=== PATIENT | female | born 1970 | race Caucasian/White ===

== ENCOUNTER 2020-08-10 15:44 | Outpatient (REF) | payer BC, SELFPAY ==
--- NOTE | ~2020-08-10 | US_ITS ---
Bilateral diagnostic breast ultrasound exams are included in a single combined report along with the diagnostic bilateral mammography under accession # [id number]
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
--- NOTE | ~2020-08-10 | US_ITS ---
Bilateral diagnostic breast ultrasound exams are included in a single combined report along with the diagnostic bilateral mammography under accession # [id number]
== END 2020-08-10 15:45 | disposition home or self-care (01) ==
LOC: HO.MAMMO 15:44
PROVIDERS: PCP Internal Medicine; Visit Provider Internal Medicine
DX: N64.4 Mastodynia (principal); N60.01 Solitary cyst of right breast
CPT/HCPCS: 76642; 77062; 77066

== ENCOUNTER 2021-02-11 12:42 | Outpatient (REF) | payer BC, SELFPAY ==
--- NOTE | ~2021-02-11 | MM_ITS ---
EXAMINATION: MM DIAGNOSTIC DIGITAL BREAST TOMOSYNTHESIS, RIGHT CLINICAL INFORMATION: Probable benign parenchymal asymmetry with central fatty tissue composition 1:30 o'clock right breast. The lifetime risk of breast cancer based on the Tyrer-Cuzick Model is 16%. COMPARISON: Mammography: 08/10/2020, 08/05/2019, 12/14/2017; targeted right breast ultrasound 08/10/2020 TECHNIQUE: Digital breast tomosynthesis is performed in both the craniocaudal and mediolateral oblique views along with computer-aided detection (CAD). Synthesized 2D images are generated from the tomosynthesis. Additional right CC view is provided. FINDINGS: There are scattered areas of fibroglandular density (ACR BI-RADS breast composition Category b). Parenchymal pattern is similar to prior exams. The parenchymal asymmetry with central fatty attenuation mid medial right breast on CC view is similar in size and contour to the prior studies. There is no developing density or architectural abnormality. Finding will be reassessed again at time of annual bilateral exam, due in 6 months. Results are provided to the patient at time of visit by the technologist. MM/MM tomosynthesis diagnostic RT IMPRESSION: Benign-appearing parenchymal asymmetry with central fatty attenuation mid medial right breast stable. ASSESSMENT: BI-RADS 3: Probably Benign RECOMMENDATION: Diagnostic mammography at time of annual bilateral exam, due in 6 months. This patient's information was entered into a reminder system with a target due date for their next mammogram.
== END 2021-02-11 12:43 | disposition home or self-care (01) ==
LOC: HO.MAMMO 12:42
PROVIDERS: Visit Provider Internal Medicine
DX: R92.2 Inconclusive mammogram (principal)
CPT/HCPCS: 77061; 77065

== ENCOUNTER 2021-08-20 13:25 | Outpatient (REF) | payer BC, SELFPAY ==
--- NOTE | ~2021-08-20 | MM_ITS ---
EXAMINATION: MM DIAGNOSTIC DIGITAL BREAST TOMOSYNTHESIS, BILATERAL CLINICAL INFORMATION: Due for yearly. Also follow-up probable benign parenchymal asymmetry central 1:30 o'clock right breast. The lifetime risk of breast cancer based on the Tyrer-Cuzick Model is 11%. COMPARISON: Mammography: 02/11/2021, 08/10/2020 (BI-RADS 3), 08/05/2019, 12/14/2017; bilateral breast ultrasound 08/10/2020 TECHNIQUE: Digital breast tomosynthesis is performed in both the craniocaudal and mediolateral oblique views along with computer-aided detection (CAD). Synthesized 2D images are generated from the tomosynthesis. FINDINGS: There are scattered areas of fibroglandular density (ACR BI-RADS breast composition Category b). Parenchymal pattern is similar to prior studies. There is no interval mass or architectural abnormality. No developing density. Finding for follow-up is stable and in retrospect unchanged since 2018. Findings will be reassessed again at next bilateral annual mammography to conclude long-term surveillance. Neither breast shows abnormal calcifications. The axilla and skin contours are unremarkable. Results are provided to the patient at time of visit by the technologist. MM/MM tomosynthesis diagnostic BI IMPRESSION: No significant changes from prior studies. Benign-appearing fibroglandular asymmetry on right stable. No developing density. ASSESSMENT: BI-RADS 3: Probably Benign RECOMMENDATION: Diagnostic mammography at time of next annual exam, due in 12 months. This patient's information was entered into a reminder system with a target due date for their next mammogram.
== END 2021-08-20 13:26 | disposition home or self-care (01) ==
LOC: HO.MAMMO 13:25
PROVIDERS: Visit Provider Internal Medicine
DX: N64.89 Other specified disorders of breast (principal); R92.2 Inconclusive mammogram
CPT/HCPCS: 77062; 77066

== ENCOUNTER 2021-08-22 09:28 | Outpatient (REF) | payer BC, SELFPAY ==
[2021-08-22 09:58] LABS: MANUAL DIFF FLAG NO
[2021-08-22 10:50] LABS: Basophils Absolute Auto 0.1 X10*3/uL (0.0-0.2); Basophils Percent Auto 1.2 % (0-2); Eosinophils Absolute Auto 0.3 X10*3/uL (0.0-0.4); Hematocrit 43.3 % (37.0-47.0); Hemoglobin 13.6 g/dl (12.0-16.0); Imm Gran Abs Auto 0.02 X10*3/uL (0.00-0.03); Imm Gran Pct Auto 0.3 % (0.0-0.4); Lymphocytes Absolute Auto 2.4 X10*3/uL (1.2-4.9); Lymphocytes Percent Auto 32.3 % (20-40); Mean Corpuscular HGB Conc 31.4 g/dl (31.0-35.0); Mean Corpuscular Hemoglobin 28.5 pg (27.0-33.0); Mean Corpuscular Volume 90.8 fL (80.0-98.0); Mean Platelet Volume 11.3 fL (9.4-12.3); Monocytes Absolute Auto 0.5 X10*3/uL (0.1-1.2); Monocytes Percent Auto 7.3 % (2-11); Neutrophils Absolute Auto 4.1 x10*3/uL (2.0-8.3); Neutrophils Percent Auto 54.9 % (45-73); Platelet Count 397 X10*3/uL (160-400); Red Blood Count 4.77 X10*6/uL (4.20-5.50); Red Cell Distribution Width 13.2 % (11.0-16.0); White Blood Count 7.4 X10*3/uL (4.8-10.8)
[2021-08-22 11:39] LABS: Alanine Aminotransferase 15 U/L (0-31); Albumin Level 4.3 g/dL (3.5-5.0); Alkaline Phosphatase 62 U/L (39-117); Anion Gap 12 (12-20); Aspartate Amino Transferase 15 U/L (5-31); Bilirubin Total 0.8 mg/dL (0.0-1.0); Blood Urea Nitrogen 16 mg/dL (9-16); Calcium 9.5 mg/dL (8.4-10.2); Carbon Dioxide 28 mmol/L (22-29); Chloride 106 mmol/L (96-108); Cholesterol 281 mg/dL; Estimated Glomerular Filt Rate > 60; Glucose Random 88 mg/dL (60-115); HDL Cholesterol 50 mg/dL; LDL Cholesterol Calculated 203 mg/dl; Sodium 141 mmol/L (135-145); Total Protein 7.4 g/dL (6.5-8.0); Triglycerides 141 mg/dL
[2021-08-22 11:51] LABS: Folate 8.9 ng/mL (> or = 4.0); Vitamin B12 882 pg/mL (200-900)
[2021-08-22 12:01] LABS: Free T4 (Free Thyroxine) 0.81 ng/dL (0.71-1.85); Thyroid Stimulating Hormone 1.26 uIU/mL (0.32-4.0)
== END 2021-08-22 09:29 | disposition home or self-care (01) ==
LOC: HO.LAB 09:28
PROVIDERS: PCP Internal Medicine; Visit Provider Internal Medicine
DX: E78.00 Pure hypercholesterolemia, unspecified (principal)
CPT/HCPCS: 36415; 80053; 80061; 82607; 82746; 84439; 84443; 85025

== ENCOUNTER 2021-11-19 16:39 | Outpatient (REF) | payer BC, SELFPAY ==
--- NOTE | ~2021-11-19 | XR_ITS ---
EXAMINATION: XR CHEST CLINICAL INFORMATION: Chest pain COMPARISON: Previous chest x-ray June 2011 TECHNIQUE: 2 views of the chest were obtained. FINDINGS: No significant abnormality is noted involving the heart, lungs, mediastinum, or soft tissues. There are postsurgical changes to the left shoulder. XR/XR chest 2V IMPRESSION: No evidence for acute disease in the chest.
== END 2021-11-19 16:40 | disposition home or self-care (01) ==
LOC: HO.HMGCX 16:39
PROVIDERS: Visit Provider Internal Medicine
DX: R07.9 Chest pain, unspecified (principal)
CPT/HCPCS: 71046

== ENCOUNTER 2022-09-03 12:39 | Outpatient (REF) | payer BC, SELFPAY ==
--- NOTE | ~2022-09-03 | MM_ITS ---
EXAMINATION: MM DIAGNOSTIC DIGITAL BREAST TOMOSYNTHESIS, BILATERAL CLINICAL INFORMATION: Due for yearly. Also follow-up probable benign parenchymal asymmetry central 1:30 right breast. The lifetime risk of breast cancer based on the Tyrer-Cuzick Model is 11%. COMPARISON: Mammography: 08/20/2021, 02/11/2021, 08/10/2020 (diagnostic, BI-RADS 3), 08/05/2019, 12/14/2017; bilateral breast ultrasound 08/10/2020. TECHNIQUE: Digital breast tomosynthesis is performed in both the craniocaudal and mediolateral oblique views along with computer-aided detection (CAD). Synthesized 2D images are generated from the tomosynthesis. FINDINGS: There are scattered areas of fibroglandular density (ACR BI-RADS breast composition Category b). There are no significant masses, abnormal calcifications, or other abnormalities. The island fibroglandular tissue central 1:30 right breast is similar to multiple prior exams, dating back to 2018. There is no developing density or architectural abnormality. Finding is considered to be benign. Remainder of the bilateral breasts appears similar to prior exams as well. The axilla and skin contours are unremarkable. No significant changes from prior studies. Results are provided to the patient at time of visit by the technologist. MM/MM tomosynthesis diagnostic BI IMPRESSION: -No mammographic evidence of malignancy. -Parenchymal pattern is similar to prior studies. ASSESSMENT: BI-RADS 2: Benign RECOMMENDATION: Routine annual mammography screening. This patient's information was entered into a reminder system with a target due date for their next mammogram.
== END 2022-09-03 12:40 | disposition home or self-care (01) ==
LOC: HO.MAMMO 12:39
PROVIDERS: PCP Internal Medicine; Visit Provider Internal Medicine
DX: N64.89 Other specified disorders of breast (principal)
CPT/HCPCS: 77062; 77066

== ENCOUNTER 2022-10-27 08:41 | Outpatient (REF) | payer BC, SELFPAY ==
--- NOTE | ~2022-10-27 | XR_ITS ---
EXAMINATION: XR HAND, LEFT CLINICAL INFORMATION: Left fifth finger pain. COMPARISON: None available. TECHNIQUE: PA, lateral, and oblique views of the left hand. FINDINGS: The bones and soft tissues are normal. Small sclerotic, well marginated bone islands are incidentally noted within the navicular and radial styloid. No fracture. Alignment is anatomic. Joint spaces are maintained. No erosions or soft tissue calcifications. XR/XR hand LT 2V IMPRESSION: Unremarkable left hand.
--- NOTE | ~2022-10-27 | XR_ITS ---
EXAMINATION: XR FOOT, LEFT CLINICAL INFORMATION: Pain. COMPARISON: None available. TECHNIQUE: AP, lateral, and oblique views of the left foot. FINDINGS: The bones and soft tissues are normal. No fracture. Alignment is anatomic. Joint spaces are maintained. XR/XR foot LT 2V IMPRESSION: Normal left foot.
== END 2022-10-27 08:42 | disposition home or self-care (01) ==
LOC: HO.XRAY 08:41
PROVIDERS: PCP Internal Medicine; Visit Provider Internal Medicine
DX: M79.645 Pain in left finger(s) (principal); M79.672 Pain in left foot
CPT/HCPCS: 73120; 73620

== ENCOUNTER 2023-02-11 12:47 | Emergency (ER) | payer BC, SELFPAY ==
[2023-02-11] VITALS (7 sets, daily range): BP systolic 150–208; BP diastolic 74–113; PULSE 59–68; RESP 13–20; TEMP 36.7–36.8; O2SAT 96–100; BMI 32.1
--- NOTE | ~2023-02-11 | CT_ITS ---
EXAMINATION: CT HEAD WITHOUT CONTRAST CLINICAL INFORMATION: Hypertension and headaches. COMPARISON: None available. TECHNIQUE: Contiguous axial imaging was performed from the skull base to vertex without intravenous administration of contrast. This CT examination was performed using dose optimization techniques as appropriate, variously including the following: *Automated exposure control *Adjustment of mA and/or kV according to patient size (this includes techniques or standardized protocols for targeted exams where dose is matched to indication/reason for exam; i.e. extremities or head) *Use of iterative reconstruction technique DLP: 587 mGy-cm FINDINGS: There is no acute intra-axial, extra-axial bleed, masses or midline shift. There is no acute infarction in evolution .There is no edema. Puente to white matter differentiation is maintained normal. The lateral ventricles are symmetrical in size and configuration without enlargement. Bone windows reveal no calvarial abnormality. There is no scalp soft tissue abnormality. There is mild mucoperiosteal thickening left maxillary sinus. Rest of the paranasal sinuses and mastoid air cells are well-aerated and clear. There is normal symmetry of optic globes, optic nerve and bony orbits. CT/CT head/brain wo IV con IMPRESSION: 1. No acute intracranial process seen. 2. Chronic left maxillary sinus inflammatory changes.
--- NOTE | 2023-02-11 13:03 | ECG_ITS ---
Test Reason : HYPERTENSION Blood Pressure : / mmHG Vent. Rate : 066 BPM Atrial Rate : 066 BPM P-R Int : 118 ms QRS Dur : 084 ms QT Int : 406 ms P-R-T Axes : 018 030 026 degrees QTc Int : 425 ms Normal sinus rhythm Normal ECG When compared with ECG of 04-APR-2011 09:42, No significant change was found Referred By: Generic ED Physician Electronically Signed By:KIKI ORTIZ
--- NOTE | 2023-02-11 13:21 | ED.GENADULT ---
HPI - General Adult General Chief complaint: General Medical Stated complaint: Feeling off x 3 days, dizzy, weakness per EMS Time Seen by Provider: 02/11/23 13:13 Source: patient Mode of arrival: EMS Limitations: no limitations History of Present Illness HPI narrative: Patient comes to the emergency room complaining of severe headache and high blood pressure. Patient states that for approximately 3 days, patient has been feeling weak, lightheaded and having a severe headache. Yesterday, the headache got much worse. Today, patient went to work, continued feeling weak and had a severe headache despite taking multiple doses of acetaminophen and aspirin. Patient's drove the patient to a nearby fire station where they took her blood pressure and it was 195 systolic. Patient was brought to emergency room via EMS. Patient states that she does not have any chest pain or shortness of breath. To patient's knowledge, she has never been diagnosed with hypertension. Patient had her physical exam 6 months ago, and her blood pressure was normal. Related Data Home Medications Medication Instructions Recorded Confirmed ascorbate calcium (vitamin C) 500 500 mg PO DAILY 08/20/20 09/05/22 mg tablet cholecalciferol (vitamin D3) 25 25 mcg PO DAILY 08/20/20 09/05/22 mcg (1,000 unit) capsule Previous Rx's Medication Instructions Recorded amlodipine 5 mg tablet 5 mg PO DAILY #30 tabs 02/11/23 Allergies Allergy/AdvReac Type Severity Reaction Status Date / Time simvastatin AdvReac Intermediate myalgia Verified 09/05/22 10:25 Review of Systems Review of Systems: Constitutional : No Weight loss, No Fever, No Chills, No Night Sweats, complaining of generalized weakness ENT/Mouth : No Hearing loss, No Ear Pain, No Nasal Congestion, No Sinus Pain, No Hoarseness, No sore throat, No Rhinorrhea, No Swallowing Difficulty Eyes: No Eye Pain, No Swelling, No Redness, No Foreign Body, No Discharge, No Vision Changes Cardiovascular : No Chest Pain, No SOB, No Dyspnea on Exertion, No Orthopnea, No Edema, No Palpitations Respiratory : No Cough, No Sputum, No Wheezing, No Smoke Exposure, No Dyspnea Gastrointestinal : No Nausea, No Vomiting, No Diarrhea, No Constipation, No abdominal Pain, No Hematochezia, No Melena Genitourinary : no irregular bleeding, No Dysuria, No Urinary Frequency, No Hematuria, No Urinary Incontinence, No Urgency, No Flank Pain, No Urinary Flow Changes, No Hesitancy Musculoskeletal : No joint pain, No Myalgias, No Joint Swelling Skin : No Skin Lesions, No rash Neuro : No Weakness, No Numbness, No Paresthesias, No Loss of Consciousness, No Dizziness, complaining of severe Headache Psych : No Anxiety/Panic, No Depression, No SI/HI/AH/VH, No Social Issues, Heme/Lymph: No Bruising, No Bleeding,No Lymphadenopathy Endocrine : No Polyuria, No Polydipsia, No Temperature Intolerance [facility] Past Medical History Medical History Hypercholesterolemia Periodic limb movement disorder Surgical History History of arthroscopy of left shoulder Family History Family History (Updated 09/05/22 @ 10:06 by Ramsey Macdonald [facility]) Father Myocardial infarction Mother Cervical cancer Hypertension Hyperlipidemia CAD (coronary artery disease) Uterine cancer Maternal Grandmother Ovarian cancer Maternal Grandfather Myocardial infarction Brother No problems noted. Brother No problems noted. Sister No problems noted. Sister No problems noted. Son No problems noted. Social History Social History (Updated 09/05/22 @ 10:22 by Sharmin Culver MD) Housing: House Alcohol intake: current Alcohol intake frequency: holidays/special occasions only Alcohol type: wine Patient Tobacco Use Status: Former Tobacco user Years Smoked: 2000 Quit Smoked in Last 30 Days: No e-Cigarette/Vaping Use: Never Used Second Hand Smoke Exposure: No Use of substances other than those prescribed or required for medical reasons: No Advance Directives: No Patient : No Current occupational status: employed Cognitive needs: No Hearing needs: No Vision needs: Yes Physical Exam ED Vital Signs: Vital Signs - 24 hr 02/11/23 13:11 02/11/23 13:27 02/11/23 13:34 Temperature 98.2 F 98.1 F Pulse Rate 67 68 67 Respiratory Rate 16 13 17 Blood Pressure 183/109 H 208/108 H 189/78 H Pulse Oximetry 100 99 98 Oxygen Delivery Method Room Air Room Air Room Air 02/11/23 13:58 02/11/23 14:51 02/11/23 16:00 Temperature 98.3 F 98.2 F Pulse Rate 62 61 59 Respiratory Rate 15 15 18 Blood Pressure 159/80 H 150/76 H 153/74 H Pulse Oximetry 96 99 99 Oxygen Delivery Method Room Air Room Air Room Air BMI result Body Mass Index 32.1 Const Other: Appearance: Alert. Oriented X3. No acute distress. Eyes: Pupils equal, round and reactive to light. ENT: Pharynx normal. Neck: Normal inspection. Neck supple. No lymph nodes noted. No crepitus CVS: Normal heart rate and rhythm. Pulses normal. Normal S1 and S2 Respiratory: No respiratory distress. Breath sounds normal. No Wheezing. No rales Abdomen: Soft and nontender. No rigidity. No distention. Skin: Skin warm and dry. Normal skin color. Normal skin turgor. Extremities: No lower extremity edema. No Lacerations. No Rash Neuro: Oriented X 3. No motor deficit. No sensory deficit. Moving all extremities. No slurred speech. CN 2 through 12 grossly intact Psych: calm, cooperative, normal affect Course Course Course Narrative: Patient's blood pressure 183/109, heart rate 67. -patient given IV labetalol for hypertensive urgency -head CT pending Medications Administered Discontinued Medications Generic Name Dose Route Start Last Admin Trade Name Freq PRN Reason Stop Dose Admin Labetalol HCl 10 mg 02/11/23 13:21 02/11/23 13:30 Labetalol Hcl 100 Mg/20 Ml Vial IVPUSH 02/11/23 13:22 10 mg ONCE ONE Administration Medical Decision Making Medical Decision Making [facility] Narrative: -my interpretation of EKG: Normal sinus rhythm, heart rate 66, no ST segment depression or elevation, no T-wave inversion, QTC 425 -patient's blood pressure 133 systolic prior to discharge, patient asymptomatic, patient no longer having a headache. -patient will be started on blood pressure medication, patient agreeable, patient will follow-up with her primary care physician Differential Diagnosis Differential Diagnoses: The differential diagnosis associated with the presentation includes (Hypertensive emergency, hypertensive urgency, hypertension, tension headache, migraine) Admission/Observation Consideration of admission/observation: Escalation of care including admission/observation considered (Patient came in with elevated blood pressure, headache, concerned admission for hypertensive urgency) Lab Data [facility] Lab Attestation statement: I reviewed the patient's lab results. (Troponin negative) 02/11/23 16:59 02/11/23 16:59 Labs: Lab Results 02/11/23 02/11/23 02/11/23 Range/Units 13:22 13:22 16:59 WBC 8.7 (4.8-10.8) X10*3/uL RBC 4.57 (4.20-5.50) X10*6/uL Hgb 13.9 (12.0-16.0) g/dl Hct 40.4 (37.0-47.0) % MCV 88.4 (80.0-98.0) fL MCH 30.4 (27.0-33.0) pg MCHC 34.4 (31.0-35.0) g/dl RDW 12.5 (11.0-16.0) % Plt Count 355 (160-400) X10*3/uL MPV 11.1 (9.4-12.3) fL Immature Gran % (Auto) 0.3 (0.0-0.4) % Neut % (Auto) 63.9 (45-73) % Lymph % (Auto) 27.7 (20-40) % [place] % (Auto) 5.8 (2-11) % Eos % (Auto) 1.5 (0-4) % Baso % (Auto) 0.8 (0-2) % Lymph # (Auto) 2.4 (1.2-4.9) X10*3/uL [place] # (Auto) 0.5 (0.1-1.2) X10*3/uL Eos # (Auto) 0.1 (0.0-0.4) X10*3/uL Baso # (Auto) 0.1 (0.0-0.2) X10*3/uL Abs Immat Gran (auto) 0.03 (0.00-0.03) X10*3/uL Absolute Neuts (auto) 5.5 (2.0-8.3) x10*3/uL Absolute Nucleated RBC 0.000 (0.0-0.012) X10*3/uL Nucleated RBC % (auto) 0.0 (0.0-0.2) /100WBC Sodium (135-145) mmol/L Potassium (3.3-5.1) mmol/L Chloride (96-108) mmol/L Carbon Dioxide (22-29) mmol/L Anion Gap (12-20) BUN (9-16) mg/dL Creatinine (0.5-1.4) mg/dL Estim Creat Clear Calc Estimated GFR Random Glucose (60-115) mg/dL Calcium (8.4-10.2) mg/dL Troponin I High Sens (<3.5-17.0) ng/L Urine Color Yellow Urine Appearance Clear Urine pH 5.5 (5.0-9.0) Ur Specific [place] <= 1.005 (1.005-1.025) Urine Protein Negative (Neg-Trace) mg/dL Urine Glucose (UA) Negative (Negative) mg/dL Urine Ketones Negative (Negative) mg/dL Urine Blood Negative (Negative) Urine Nitrite Negative (Negative) Ur Leukocyte Esterase Negative (Negative) Urine RBC 0-2 (0-2) /HPF Urine WBC 0-5 (0-5) /HPF Ur Squamous Epith Cells 0-2 (0-2) /HPF Urine Bacteria None Seen (None Seen) Hyaline Casts 0-2 (0-2) /LPF Urine Test NEGATIVE (NEGATIVE) 02/11/23 02/11/23 Range/Units 16:59 16:59 WBC (4.8-10.8) X10*3/uL RBC (4.20-5.50) X10*6/uL Hgb (12.0-16.0) g/dl Hct (37.0-47.0) % MCV (80.0-98.0) fL MCH (27.0-33.0) pg MCHC (31.0-35.0) g/dl RDW (11.0-16.0) % Plt Count (160-400) X10*3/uL MPV (9.4-12.3) fL Immature Gran % (Auto) (0.0-0.4) % Neut % (Auto) (45-73) % Lymph % (Auto) (20-40) % [place] % (Auto) (2-11) % Eos % (Auto) (0-4) % Baso % (Auto) (0-2) % Lymph # (Auto) (1.2-4.9) X10*3/uL [place] # (Auto) (0.1-1.2) X10*3/uL Eos # (Auto) (0.0-0.4) X10*3/uL Baso # (Auto) (0.0-0.2) X10*3/uL Abs Immat Gran (auto) (0.00-0.03) X10*3/uL Absolute Neuts (auto) (2.0-8.3) x10*3/uL Absolute Nucleated RBC (0.0-0.012) X10*3/uL Nucleated RBC % (auto) (0.0-0.2) /100WBC Sodium 140 (135-145) mmol/L Potassium 3.8 D (3.3-5.1) mmol/L Chloride 107 (96-108) mmol/L Carbon Dioxide 23 (22-29) mmol/L Anion Gap 14 (12-20) BUN 13 (9-16) mg/dL Creatinine 0.71 (0.5-1.4) mg/dL Estim Creat Clear Calc 91.6 Estimated GFR > 60 Random Glucose 90 (60-115) mg/dL Calcium 9.8 (8.4-10.2) mg/dL Troponin I High Sens < 2.7 (<3.5-17.0) ng/L Urine Color Urine Appearance Urine pH (5.0-9.0) Ur Specific [place] (1.005-1.025) Urine Protein (Neg-Trace) mg/dL Urine Glucose (UA) (Negative) mg/dL Urine Ketones (Negative) mg/dL Urine Blood (Negative) Urine Nitrite (Negative) Ur Leukocyte Esterase (Negative) Urine RBC (0-2) /HPF Urine WBC (0-5) /HPF Ur Squamous Epith Cells (0-2) /HPF Urine Bacteria (None Seen) Hyaline Casts (0-2) /LPF Urine Test (NEGATIVE) Independent Interpretation I performed an independent interpretation of an: EKG and CT Scan (My interpretation head CT: No intracranial bleed) Radiology Impression Discussion of test interpretation with radiology: I have reviewed the radiologist's reading. Radiologist Impression: FINDINGS: There is no acute intra-axial, extra-axial bleed, masses or midline shift. There is no acute infarction in evolution .There is no edema. Puente to white matter differentiation is maintained normal. The lateral ventricles are symmetrical in size and configuration without enlargement. Bone windows reveal no calvarial abnormality. There is no scalp soft tissue abnormality. There is mild mucoperiosteal thickening left maxillary sinus. Rest of the paranasal sinuses and mastoid air cells are well-aerated and clear. There is normal symmetry of optic globes, optic nerve and bony orbits. ? CT/CT head/brain wo IV con IMPRESSION: 1.? No acute intracranial process seen. 2.? Chronic left maxillary sinus inflammatory changes.? Critical Care Time Critical Care Time Critical Care Time: Yes Total Critical Care Time: 60 Attestation: I have personally provided critical care time. Time includes review of lab data, radiology results, discussion with consultants, and monitoring for potential decompensation. Intervention performed as documented. Discharge Plan Discharge Clinical Impression: Hypertensive urgency, Headache Patient Disposition: Home, Self-Care Instructions: Hypertension (ED) Additional Instructions: Please follow-up with your primary care physician tomorrow. If you have any worsening or new symptoms, please return to the emergency room or call 911 Prescriptions: New amlodipine 5 mg tablet 5 mg PO DAILY Qty: 30 0RF No Action cholecalciferol (vitamin D3) 25 mcg (1,000 unit) capsule 25 mcg PO DAILY ascorbate calcium (vitamin C) 500 mg tablet 500 mg PO DAILY
[2023-02-11] MEDS: Labetalol HCL 100 MG/20 ML VIAL 10 MG IVPUSH (13:30)
[2023-02-11 13:37] LABS: Appearance Urine Clear; Color Urine Yellow; Glucose Urine UA Negative (Negative); Leukocyte Esterase Urine Negative (Negative); Nitrite Urine Negative (Negative); PH 5.5 (5.0-9.0); Specific Gravity - Urine <= 1.005 (1.005-1.025); Urine Blood Negative (Negative); Urine Ketones Negative (Negative); Urine Protein Negative (Neg-Trace)
[2023-02-11 13:38] LABS: UPreg QC Valid YES; Urine Pregnancy NEGATIVE (NEGATIVE)
[2023-02-11 13:39] LABS: Bacteria Urine None Seen (None Seen); Hyaline Casts Urine 0-2 /LPF (0-2); RBC Urine 0-2 /HPF (0-2); Squamous Epithelial Cell Urine 0-2 /HPF (0-2); WBC Urine 0-5 /HPF (0-5)
[2023-02-11 17:06] LABS: MANUAL DIFF FLAG NO
[2023-02-11 17:16] LABS: Basophils Absolute Auto 0.1 X10*3/uL (0.0-0.2); Basophils Percent Auto 0.8 % (0-2); Eosinophils Absolute Auto 0.1 X10*3/uL (0.0-0.4); Eosinophils Percent Auto 1.5 % (0-4); Hematocrit 40.4 % (37.0-47.0); Hemoglobin 13.9 g/dl (12.0-16.0); Imm Gran Abs Auto 0.03 X10*3/uL (0.00-0.03); Imm Gran Pct Auto 0.3 % (0.0-0.4); Lymphocytes Absolute Auto 2.4 X10*3/uL (1.2-4.9); Lymphocytes Percent Auto 27.7 % (20-40); Mean Corpuscular HGB Conc 34.4 g/dl (31.0-35.0); Mean Corpuscular Hemoglobin 30.4 pg (27.0-33.0); Mean Corpuscular Volume 88.4 fL (80.0-98.0); Mean Platelet Volume 11.1 fL (9.4-12.3); Monocytes Absolute Auto 0.5 X10*3/uL (0.1-1.2); Monocytes Percent Auto 5.8 % (2-11); Neutrophils Absolute Auto 5.5 x10*3/uL (2.0-8.3); Neutrophils Percent Auto 63.9 % (45-73); Platelet Count 355 X10*3/uL (160-400); Red Blood Count 4.57 X10*6/uL (4.20-5.50); Red Cell Distribution Width 12.5 % (11.0-16.0); White Blood Count 8.7 X10*3/uL (4.8-10.8)
[2023-02-11 17:22] LABS: Anion Gap 14 (12-20); Blood Urea Nitrogen 13 mg/dL (9-16); Calcium 9.8 mg/dL (8.4-10.2); Carbon Dioxide 23 mmol/L (22-29); Chloride 107 mmol/L (96-108); Creatinine Clr Calc Pharmacy 91.6; Estimated Glomerular Filt Rate > 60; Glucose Random 90 mg/dL (60-115); Potassium 3.8 mmol/L (3.3-5.1); Sodium 140 mmol/L (135-145)
[2023-02-11 17:31] LABS: Troponin-I High Sensitivity < 2.7 ng/L (<3.5-17.0)
[2023-02-11] MEDS: Morphine Sulfate 2 MG/ML CARTRIDGE 1 MG IVPUSH (18:06)
== END 2023-02-11 18:32 | disposition home or self-care (01) ==
PROVIDERS: Emergency Provider Emergency Medicine; PCP Internal Medicine
DX: R42 Dizziness and giddiness (principal); R51.9 Headache, unspecified; I16.0 Hypertensive urgency; Z87.891 Personal history of nicotine dependence; Z79.899 Other long term (current) drug therapy
CPT/HCPCS: 36415; 70450; 80048; 81001; 81025; 84484; 85025; 93005; 99284; J2270

== ENCOUNTER 2023-02-26 14:07 | Outpatient (AMB) | payer BC, SELFPAY ==
--- NOTE | 2023-02-26 14:08 | MHC.PC.OV ---
Vital Signs 02/26/23 14:09 Height 5 ft 2 in Weight 167 lb 2 oz BMI 30.6 BP 148/100 H Blood Pressure Location Lt brachial Position Sitting Pulse 82 Pulse Source Pulse Oximeter Pulse Oximetry (%) 96 Oxygen Delivery Method Room Air Intake [place] [facility] [place], [place]23 Allergies simvastatin Adverse Reaction (Intermediate, Verified 02/26/23 14:09) myalgia Medication List - Last Reconciled 02/26/23 by Sharmin Culver MD amlodipine 5 mg PO DAILY ascorbate calcium (vitamin C) 500 mg PO DAILY cholecalciferol (vitamin D3) 25 mcg PO DAILY Tobacco use date assessed: 09/05/22 Dental Screening Dental Screen Date: 02/26/23 Did you have a dental visit in the last 12 months?: Yes Did you have a dental problem in the last 6 months where you did not have access to dental care?: No Was dental information given to patient?: Patient has dentist [place] [facility] [place], [place]23 HPI Details 52-year-old obese female with hypercholesterolemia GERD last seen in August for physical exam. Patient complained of finger pain left and x-ray was requested patient is here for follow-up. Mammograms up-to-date Cologuard October 16-review of the notes ER visit in 02/11/2023 complaining of severe headache and high blood pressure patient was given labetalol CT scan done showing no intracranial process but has chronic left maxillary sinus inflammatory change patient has been started on amlodipine 5 mg once a day. noted also having irregular menstruation. Discussed with the patient regarding blood pressure regarding salt and and weight. Advised patient to take Amlodipine. Monitor blood pressure at home and record but advised to sit down for about 5 minutes before getting the blood pressure. [facility] Medical History Hypercholesterolemia Periodic limb movement disorder Surgical History History of arthroscopy of left shoulder Family History Father Myocardial infarction Mother Cervical cancer Hypertension Hyperlipidemia CAD (coronary artery disease) Uterine cancer Maternal Grandmother Ovarian cancer Maternal Grandfather Myocardial infarction Brother No problems noted. Brother No problems noted. Sister No problems noted. Sister No problems noted. Son No problems noted. Social History Housing: House Alcohol intake: current Alcohol intake frequency: holidays/special occasions only Alcohol type: wine Patient Tobacco Use Status: Former Tobacco user Years Smoked: 1999 Quit e-Cigarette/Vaping Use: Never Used Second Hand Smoke Exposure: No Current occupational status: employed Cognitive needs: No Hearing needs: No Vision needs: Yes Questionnaire PHQ-9 Over the last 2 weeks, how often have you been bothered by any of the following problems? 1. Little interest or pleasure in doing things: not at all 2. Feeling down, depressed, or hopeless: not at all 3. Trouble falling or staying asleep, or sleeping too much: not at all 4. Feeling tired or having little energy: not at all 5. Poor appetite or overeating: not at all 6. Feeling bad about yourself - or that you are a failure or have let yourself or your family down: not at all 7. Trouble concentrating on things, such as reading the newspaper or watching television: not at all 8. Moving or speaking so slowly that other people could have noticed. Or the opposite - being so fidgety or restless that you have been moving around a lot more than usual: not at all 9. Thoughts that you would be better off or of hurting yourself in some way: not at all Total score: 0 Depression Screening Interpretation: Negative Source: Developed by Drs. Jim Hernandez, Nikia Bowman, Jesus Sainz and colleagues, with an educational terrie from [employer]. Thrive Questionnaire Date Thrive assessed: 02/26/23 I am a: Patient What is your living situation today?: I have a steady place to live Within the past 12 months, did the food you bought not last and you didn't have the money to get more?: Never true Within the past 12 months, did you worry whether your food would run out before you got money to buy more?: Never true Do you have trouble paying for medicines?: No Do you have trouble getting transportation to medical appointments?: No Do you have trouble paying your heating and electricity bill?: No Do you have trouble taking care of your child, family member or friend?: No Do you have trouble with day-to-day activities such as bathing, preparing meals, shopping, managing finances, etc.?: No Are you currently unemployed and looking for a job?: No Are you interested in more education?: No Please select the resources that you would like help with: None AUDIT C Alcohol Use Questionnaire (AUDIT-C) 1. How often do you have a drink containing alcohol?: Monthly or less 2. How many drinks containing alcohol do you have on a typical day when you are drinking?: 1 or 2 3. How often do you have six or more drinks on one occasion?: Never Total Score: 1 CEDRIC-7 AMB Questionnaire CEDRIC-7 Date CEDRIC - 7 assessed: 02/26/23 Feeling nervous, anxious, or on edge: 0 = Not at all Not being able to stop or control worryin = Not at all Worrying too much about different things: 0 = Not at all Trouble relaxin = Not at all Being so restless that it is hard to sit still: 0 = Not at all Becoming easily annoyed or irritable: 0 = Not at all Feeling afraid as if something awful might happen: 0 = Not at all Total CEDRIC-7 score (0-4 normal; 5-9 mild; 10-14 moderate; 15-21 severe): 0 Source: Developed by Drs. Jim Hernandez, Nikia Bowman, Jesus Sainz and colleagues, with an educational terrie from [employer]. Physical exam (Primary Care) Vital Signs: Last Vital Signs Pulse 82 02/26/23 14:09 BP 148/100 H 02/26/23 14:09 Pulse Ox 96 02/26/23 14:09 Oxygen Delivery Method Room Air 02/26/23 14:09 BMI result Body Mass Index 30.6 Tobacco/Smoking Status: Tobacco use Status Tobacco use date assessed 09/05/22 02/26/23 14:15 Patient Tobacco Use Status Former Tobacco user 02/26/23 14:15 e-Cigarette/Vaping Use Never Used 02/26/23 14:15 PHQ-9: PHQ-9 Score PHQ-9: Total score 0 02/26/23 14:15 Depression Screening Interpretation: Negative Thrive Assessment: Date of Thrive Assessment Date Thrive assessed 02/26/23 02/26/23 14:15 Const General: alert; No acute distress Eyes Conjunctivae: conjunctivae normal Resp Auscultation: clear to auscultation bilaterally Cardio Rate: regular rate Rhythm: regular rhythm GI Inspection: Yes normal to inspection Extrem General: Yes normal to inspection and No edema Assessment and Plan Assessment & Plan (1) Obesity (BMI 30.0-34.9): Code(s): E66.9 - Obesity, unspecified Plan: Diet and exercise (2) Hypercholesterolemia: Code(s): E78.00 - Pure hypercholesterolemia, unspecified Plan: Avoid fried foods, chicken skin, eggs, butter margarine, pastries and meat. Be it pork or beef they have a lot of cholesterol LDL goal of less than 130 and triglyceride of less than 150 (3) Hypertension: Code(s): I10 - Essential (primary) hypertension Plan: Continue with blood pressure medication. Decrease salt intake and exercise PAtient has not started with the med and advised to start. Coding Level of Care Code Est Pt Level 4 (42567) Diagnoses Obesity (BMI 30.0-34.9) E66.9 Hypercholesterolemia E78.00 Hypertension I10
[2023-02-26 14:09] VITALS: BP 148/100; PULSE 82; O2SAT 96; BMI 30.6
== END 2023-02-26 15:04 | disposition home or self-care (01) ==
PROVIDERS: PCP Internal Medicine; Visit Provider Internal Medicine
DX: I10 Essential (primary) hypertension (principal); E66.9 Obesity, unspecified; E78.00 Pure hypercholesterolemia, unspecified; Z68.30 Body mass index [BMI] 30.0-30.9, adult
CPT/HCPCS: 99214

== ENCOUNTER 2023-04-07 10:41 | Outpatient (REF) | payer BC, SELFPAY | END 2023-04-07 10:42 | disposition home or self-care (01) | LOC: HO.LAB 10:41 | PROVIDERS: PCP Internal Medicine; Visit Provider Internal Medicine | DX: E78.00 Pure hypercholesterolemia, unspecified (principal); E55.9 Vitamin D deficiency, unspecified | CPT/HCPCS: 36415; 80053; 80061; 82306; 82607; 82746; 84439; 84443; 85025 ==

== ENCOUNTER 2023-04-08 13:15 | Outpatient (AMB) | payer BC, SELFPAY ==
[2023-04-08 13:35] VITALS: BP 138/72; PULSE 77; O2SAT 98; BMI 28.9
--- NOTE | 2023-04-08 13:35 | A.OFFPC_ITS ---
Vital Signs 04/08/23 13:35 Height 5 ft 2 in Weight 158 lb BMI 28.9 BP 138/72 Blood Pressure Location Lt brachial Position Sitting Pulse 77 Pulse Source Pulse Oximeter Pulse Oximetry (%) 98 Oxygen Delivery Method Room Air Intake Visit Reasons: Hypertension Allergies simvastatin Adverse Reaction (Intermediate, Verified 04/08/23 13:36) myalgia Medication List - Last Reconciled 04/08/23 by Sharmin Culver MD amlodipine 5 mg PO DAILY ascorbate calcium (vitamin C) 500 mg PO DAILY cholecalciferol (vitamin D3) 25 mcg PO DAILY Tobacco use date assessed: 09/05/22 Dental Screening Dental Screen Date: 04/08/23 Did you have a dental visit in the last 12 months?: Yes Did you have a dental problem in the last 6 months where you did not have access to dental care?: No Was dental information given to patient?: Patient has dentist HPI Hypertension HPI Details 52-year-old obese female with hypertensi on hypercholesterolemia last seen in January 2023. Patient was advised to monitor the blood pressure and follow-up today presently on amlodipine 5 mg once a day. bilateral hip pain - but not bad enough to do test patient is doing good no problems with amlodipine 5 mg once a day and blood pressure has been coming down. Patient has been check this at home [facility] Medical History (Updated 04/08/23 @ 14:04 by Sharmin Culver MD) Obesity (BMI 30.0-34.9) Periodic limb movement disorder Hypercholesterolemia Surgical History History of arthroscopy of left shoulder Family History Father Myocardial infarction Mother Cervical cancer Hypertension Hyperlipidemia CAD (coronary artery disease) Uterine cancer Maternal Grandmother Ovarian cancer Maternal Grandfather Myocardial infarction Brother No problems noted. Brother No problems noted. Sister No problems noted. Sister No problems noted. Son No problems noted. Social History Housing: House Alcohol intake: current Alcohol intake frequency: holidays/special occasions only Alcohol type: wine Patient Tobacco Use Status: Former Tobacco user Tobacco use type: Cigarette Years Smoked: 1999 Quit e-Cigarette/Vaping Use: Never Used Second Hand Smoke Exposure: No Current occupational status: employed Cognitive needs: No Hearing needs: No Vision needs: Yes Questionnaire PHQ-9 Over the last 2 weeks, how often have you been bothered by any of the following problems? 1. Little interest or pleasure in doing things: not at all 2. Feeling down, depressed, or hopeless: not at all 3. Trouble falling or staying asleep, or sleeping too much: not at all 4. Feeling tired or having little energy: not at all 5. Poor appetite or overeating: not at all 6. Feeling bad about yourself - or that you are a failure or have let yourself or your family down: not at all 7. Trouble concentrating on things, such as reading the newspaper or watching television: not at all 8. Moving or speaking so slowly that other people could have noticed. Or the opposite - being so fidgety or restless that you have been moving around a lot more than usual: not at all 9. Thoughts that you would be better off or of hurting yourself in some way: not at all Total score: 0 Depression Screening Interpretation: Negative Depression Screening Done: Yes Source: Developed by Drs. Jim Hernandez, Jesus [place] and colleagues, with an educational terrie from [employer]. Thrive Questionnaire Date Thrive assessed: 02/26/23 AUDIT C Alcohol Use Questionnaire (AUDIT-C) 1. How often do you have a drink containing alcohol?: Monthly or less 2. How many drinks containing alcohol do you have on a typical day when you are drinking?: 1 or 2 3. How often do you have six or more drinks on one occasion?: Never Total Score: 1 CEDRIC-7 AMB Questionnaire CEDRIC-7 Date CEDRIC - 7 assessed: 02/26/23 Source: Developed by Drs. Jim Hernandez, Jesus [place] and colleagues, with an educational terrie from [employer]. Physical exam (Primary Care) Vital Signs: Last Vital Signs Pulse 77 04/08/23 13:35 BP 138/72 04/08/23 13:35 Pulse Ox 98 04/08/23 13:35 Oxygen Delivery Method Room Air 04/08/23 13:35 BMI result Body Mass Index 28.9 Tobacco/Smoking Status: Tobacco use Status Tobacco use date assessed 09/05/22 04/08/23 13:43 Patient Tobacco Use Status Former Tobacco user 04/08/23 13:43 Tobacco use type Cigarette 04/08/23 13:43 e-Cigarette/Vaping Use Never Used 04/08/23 13:43 PHQ-9: PHQ-9 Score PHQ-9: Total score 0 04/08/23 13:43 Depression Screening Interpretation: Negative Thrive Assessment: Date of Thrive Assessment Date Thrive assessed 02/26/23 04/08/23 13:43 Const General: alert; No acute distress Eyes Conjunctivae: conjunctivae normal Resp Auscultation: clear to auscultation bilaterally Cardio Rate: regular rate Rhythm: regular rhythm GI Inspection: Yes normal to inspection Extrem General: Yes normal to inspection and No edema Office Procedures Flu Questionnaire Does the patient have a severe egg allergy?: No Does the patient have severe life threatening allergies?: No Does the patient have a fever or illness today?: No Has the patient ever had Guillain-[place] Syndrome?: No Has the patient ever had any past reaction to a flu shot?: No Immunizations flu vacc [id number] 6mos up(PF) 60 mcg(15 mcgx4)/0.5 mL IM syringe Performing Provider: Sharmin Culver MD [place] [facility] [place] [facility] Documented (not given) by: Lenora Wang [facility] on 04/08/23 13:43 Reason Not Given: Patient Refused Assessment and Plan Assessment & Plan (1) Overweight (BMI 25.0-29.9): Code(s): E66.3 - Overweight Plan: Noted weight loss (2) Hypertension: Code(s): I10 - Essential (primary) hypertension Plan: Continue with blood pressure medication. Decrease salt intake and exercise presently on amlodipine 5 mg once a (3) Hypercholesterolemia: Code(s): E78.00 - Pure hypercholesterolemia, unspecified Plan: Avoid fried foods, chicken skin, eggs, butter margarine, pastries and meat. Be it pork or beef they have a lot of cholesterol LDL goal of less than 130 Orders: Orders Influenza [id number] Immunization Today Z23 - Encounter for immunization Medications: Refilled amlodipine 5 mg PO DAILY 90 tabs 2RF I10 - Essential (primary) hypertension Coding Level of Care Code Est Pt Level 4 (22403) Diagnoses Overweight (BMI 25.0-29.9) E66.3 Hypertension I10 Hypercholesterolemia E78.00
== END 2023-04-08 14:17 | disposition home or self-care (01) ==
PROVIDERS: PCP Internal Medicine; Visit Provider Internal Medicine
DX: E66.3 Overweight (principal); I10 Essential (primary) hypertension; E78.00 Pure hypercholesterolemia, unspecified; Z23 Encounter for immunization
CPT/HCPCS: 99214

== ENCOUNTER 2023-09-07 09:55 | Outpatient (AMB) | payer BC, SELFPAY ==
[2023-09-07 10:04] VITALS: BP 114/68; PULSE 59; O2SAT 100; BMI 27.8
--- NOTE | 2023-09-07 10:04 | A.OFFPC_ITS ---
Vital Signs 09/07/23 10:04 Height 5 ft 2 in Weight 152 lb 0.8 oz BMI 27.8 BP 114/68 Blood Pressure Location Lt brachial Position Sitting Pulse 59 Pulse Source Pulse Oximeter Pulse Oximetry (%) 100 Oxygen Delivery Method Room Air Intake Visit Reasons: Annual Exam Intake Note: Patient is here today for a physical. 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 Accompanied by: Self / Same As Patient Allergies simvastatin Adverse Reaction (Intermediate, Verified 09/07/23 10:04) myalgia Medication List - Last Reconciled 09/07/23 by Sharmin Culver MD amlodipine 5 mg PO DAILY ascorbate calcium (vitamin C) 500 mg PO DAILY cholecalciferol (vitamin D3) 25 mcg PO DAILY Tobacco use date assessed: 09/07/23 Dental Screening Dental Screen Date: 09/07/23 Did you have a dental visit in the last 12 months?: Yes Did you have a dental problem in the last 6 months where you did not have access to dental care?: No Was dental information given to patient?: Patient has dentist HPI Annual Exam HPI Details 53-year-old overweight female with hyper tension hypercholesterolemia last seen in March 2023 patient is here for physical exam. Mammogram is up-to-date August 2022 due for this month colonoscopy Cologuard September 2021 negative. done. [facility] Medical History (Updated 09/07/23 @ 10:26 by Sharmin Culver MD) Foot pain, left Finger pain, left Chest pain Colonoscopy refused Colon cancer screening Obesity (BMI 30.0-34.9) Periodic limb movement disorder Hypercholesterolemia Surgical History History of arthroscopy of left shoulder Family History Father Myocardial infarction Mother Cervical cancer Hypertension Hyperlipidemia CAD (coronary artery disease) Uterine cancer Maternal Grandmother Ovarian cancer Maternal Grandfather Myocardial infarction Brother No problems noted. Brother No problems noted. Sister No problems noted. Sister No problems noted. Son No problems noted. Social History (Updated 09/07/23 @ 10:30 by Sharmin Culver MD) Housing: House Alcohol intake: current Alcohol intake frequency: holidays/special occasions only Alcohol type: wine Comment: once a month 1-2 glasses of wine Patient Tobacco Use Status: Former Tobacco user Tobacco use type: Cigarette Years Smoked: 1999 Quit e-Cigarette/Vaping Use: Never Used Second Hand Smoke Exposure: No Current occupational status: employed Cognitive needs: No Hearing needs: No Vision needs: Yes Questionnaire PHQ-9 Over the last 2 weeks, how often have you been bothered by any of the following problems? 1. Little interest or pleasure in doing things: not at all 2. Feeling down, depressed, or hopeless: not at all 3. Trouble falling or staying asleep, or sleeping too much: not at all 4. Feeling tired or having little energy: not at all 5. Poor appetite or overeating: not at all 6. Feeling bad about yourself - or that you are a failure or have let yourself or your family down: not at all 7. Trouble concentrating on things, such as reading the newspaper or watching television: not at all 8. Moving or speaking so slowly that other people could have noticed. Or the opposite - being so fidgety or restless that you have been moving around a lot more than usual: not at all 9. Thoughts that you would be better off or of hurting yourself in some way: not at all Total score: 0 Depression Screening Interpretation: Negative Depression Screening Done: Yes Source: Developed by Drs. Jim Hernandez, Nikia Bowman, Jesus Sainz and colleagues, with an educational terrie from [employer]. Thrive Questionnaire Date Thrive assessed: 09/07/23 I am a: Patient What is your living situation today?: I have a steady place to live Within the past 12 months, did the food you bought not last and you didn't have the money to get more?: Never true Within the past 12 months, did you worry whether your food would run out before you got money to buy more?: Never true Do you have trouble paying for medicines?: No Do you have trouble getting transportation to medical appointments?: No Do you have trouble paying your heating and electricity bill?: No Do you have trouble taking care of your child, family member or friend?: No Do you have trouble with day-to-day activities such as bathing, preparing meals, shopping, managing finances, etc.?: No Are you currently unemployed and looking for a job?: No Are you interested in more education?: No Please select the resources that you would like help with: None THRIVE Score: 0 AUDIT C Alcohol Use Questionnaire (AUDIT-C) 1. How often do you have a drink containing alcohol?: Never 3. How often do you have six or more drinks on one occasion?: Never Total Score: 0 CEDRIC-7 AMB Questionnaire CEDRIC-7 Date CEDRIC - 7 assessed: 09/07/23 Feeling nervous, anxious, or on edge: 0 = Not at all Not being able to stop or control worryin = Not at all Worrying too much about different things: 0 = Not at all Trouble relaxin = Not at all Being so restless that it is hard to sit still: 0 = Not at all Becoming easily annoyed or irritable: 0 = Not at all Feeling afraid as if something awful might happen: 0 = Not at all Total CEDRIC-7 score (0-4 normal; 5-9 mild; 10-14 moderate; 15-21 severe): 0 Source: Developed by Drs. Jim Hernandez, Nikia Bowman, Jesus Sainz and colleagues, with an educational terrie from [employer]. Review of Systems Const Denies poor appetite and Denies weakness Eyes Denies no additional complaints ENT Reports Normal hearing present, Denies dizziness, Denies nasal congestion, Denies tinnitus and Denies sore throat Card Denies chest pain, Denies syncope, Denies rapid heart rate and Denies dyspnea Resp Denies cough and Denies dyspnea GI Denies change in stool character, Reports constipation, Denies diarrhea, Denies nausea and Denies vomiting Denies urinary frequency, Denies difficulty voiding and Denies dysuria Neuro Reports Normal hearing present, Denies confusion, Denies dizziness, Denies syncope and Denies weakness Psych Denies confusion Physical exam (Primary Care) Vital Signs: Last Vital Signs Pulse 59 09/07/23 10:04 BP 114/68 09/07/23 10:04 Pulse Ox 100 09/07/23 10:04 Oxygen Delivery Method Room Air 09/07/23 10:04 BMI result Body Mass Index 27.8 Tobacco/Smoking Status: Tobacco use Status Tobacco use date assessed 09/07/23 09/07/23 10:05 Patient Tobacco Use Status Former Tobacco user 09/07/23 10:05 Tobacco use type Cigarette 09/07/23 10:05 e-Cigarette/Vaping Use Never Used 09/07/23 10:05 PHQ-9: PHQ-9 Score PHQ-9: Total score 0 09/07/23 10:15 Depression Screening Interpretation: Negative Thrive Assessment: Date of Thrive Assessment Date Thrive assessed 09/07/23 09/07/23 10:05 Const General: No confusion Orientation/consciousness: No confusion HENMT Head: Yes normocephalic Ears: external ears normal and TM's normal bilaterally Face and sinus: Yes normal facial exam Mouth: moist mucous membranes Throat: Yes tonsils normal Eyes Conjunctivae: conjunctivae normal Pupils: Equal, round and reactive pupils present and Pupil accommodation reflex normal Direct Ophthalmoscopy: normal light reflex Neck Neck: No lymphadenopathy Thyroid: Thyroid normal Chest Chest palpation & inspection: normal inspection of the chest Resp Effort & Inspection: normal respiratory effort and no audible wheezes Auscultation: clear to auscultation bilaterally, no crackles, no wheezes and lung sounds not diminished Cardio Rate: regular rate Rhythm: regular rhythm Peripheral pulses: radial pulses present and dorsalis pedis present GI Other: Cologuard testing Palpation (GI): no masses Auscultation: normal bowel sounds and normoactive bowel sounds Rectal Exam - Female: deferred Skin General skin exam: no rashes or lesions noted Rashes: no rashes Neuro General: No confusion Cranial nerves: Yes Equal, round and reactive pupils present and Yes Normal hearing present Cognition (Neuro): normal cognition Gait exam (Neuro): Normal gait present Motor exam (neuro): 5/5 motor strength present throughout Deep tendon reflexes (DTR's): Right brachioradialis reflex intensity grade: 2+, Left brachioradialis reflex intensity grade: 2+, Right patellar reflex intensity grade: 2+ and Left patellar reflex intensity grade: 2+ Extrem General: No edema Assessment and Plan Assessment & Plan (1) Annual physical exam: Code(s): Z00.00 - Encounter for general adult medical examination without abnormal findings (2) GERD (gastroesophageal reflux disease): Code(s): K21.9 - Gastro-esophageal reflux disease without esophagitis Plan: Avoid the foods that causes that usually spicy foods, tomato products, juices, coffee, soda and foods that your sensitive to. After eating do not lie down, allow 3-4 hours before in lie down. And keep the head of bed above 30 degrees to avoid the acid from going up. (3) Hypertension: Code(s): I10 - Essential (primary) hypertension Plan: Continue with blood pressure medication. Decrease salt intake and exercise presently on amlodipine 5 mg once a day (4) Overweight (BMI 25.0-29.9): Code(s): E66.3 - Overweight Plan: Continue with diet and exercise (5) Hypercholesterolemia: Code(s): E78.00 - Pure hypercholesterolemia, unspecified Plan: Avoid fried foods, chicken skin, eggs, butter margarine, pastries and meat. Be it pork or beef they have a lot of cholesterol LDL goal of less than 130 and triglyceride of less than 150 (6) Breast cancer screening by mammogram: Code(s): Z12.31 - Encounter for screening mammogram for malignant neoplasm of breast Orders: Orders Comprehensive Met. Panel Today E78.00 - Pure hypercholesterolemia, unspecified Vitamin B12 and Folate Today E78.00 - Pure hypercholesterolemia, unspecified Vitamin D 25-OH Total Today E78.00 - Pure hypercholesterolemia, unspecified Complete Blood Count Auto Diff Today E78.00 - Pure hypercholesterolemia, unspecified Free T4 (Free Thyroxine) Today E78.00 - Pure hypercholesterolemia, unspecified Lipid Panel Today E78.00 - Pure hypercholesterolemia, unspecified Thyroid Stimulating Hormone Today E78.00 - Pure hypercholesterolemia, unspecified Coding Level of Care Code Est Pt Prev Care 40-64y(37258) Diagnoses Annual physical exam Z00.00 GERD (gastroesophageal reflux disease) K21.9 Hypertension I10 Overweight (BMI 25.0-29.9) E66.3 Hypercholesterolemia E78.00 Breast cancer screening by mammogram Z12.31
== END 2023-09-07 10:43 | disposition home or self-care (01) ==
PROVIDERS: Visit Provider Internal Medicine
DX: Z00.00 Encounter for general adult medical examination without abnormal findings (principal); K21.9 Gastro-esophageal reflux disease without esophagitis; I10 Essential (primary) hypertension; E66.3 Overweight; E78.00 Pure hypercholesterolemia, unspecified; Z12.31 Encounter for screening mammogram for malignant neoplasm of breast
CPT/HCPCS: 99396

== ENCOUNTER 2023-09-14 10:32 | Outpatient (REF) | payer BC, SELFPAY ==
--- NOTE | ~2023-09-14 | MM_ITS ---
EXAMINATION: MM SCREENING DIGITAL BREAST TOMOSYNTHESIS, BILATERAL CLINICAL INFORMATION: Screening. Asymptomatic. COMPARISON: Mammography: 09/14/2023, 09/03/2022, 08/20/2021, 02/11/2021, 08/10/2020 (diagnostic, BI-RADS 3), 08/05/2019, 12/14/2017; bilateral breast ultrasound 08/10/2020. TECHNIQUE: Digital breast tomosynthesis is performed in both the craniocaudal and mediolateral oblique views along with computer-aided detection (CAD). Synthesized 2D images are generated from the tomosynthesis. FINDINGS: There are scattered areas of fibroglandular density (ACR BI-RADS breast composition Category b). 1 view asymmetry in the slightly upper mid right MLO view is stable from numerous prior exams. This is benign, consistent with summation artifact. There are no suspicious masses, suspicious grouped calcifications, or areas of architectural distortion in either breast. The parenchymal pattern is stable from prior exams. No skin or axillary abnormalities. MM/MM tomosynthesis screening BI IMPRESSION: No mammographic evidence of malignancy. ASSESSMENT: BI-RADS BI-RADS 2 - Benign Findings RECOMMENDATION: Routine annual mammography screening. 1 year F/U This examination should not preclude the clinical evaluation of a suspicious palpable abnormality. This patient's information was entered into a reminder system with a target due date for their next mammogram.
== END 2023-09-14 10:33 | disposition home or self-care (01) ==
LOC: HO.MAMMO 10:32
PROVIDERS: PCP Internal Medicine; Visit Provider Internal Medicine
DX: Z12.31 Encounter for screening mammogram for malignant neoplasm of breast (principal)
CPT/HCPCS: 77063; 77067

== ENCOUNTER → 2023-09-14 11:00 | Outpatient (BNV) | payer BC, SELFPAY | PROVIDERS: PCP Internal Medicine; Visit Provider Radiology Diagnostic Radiology | DX: Z12.31 Encounter for screening mammogram for malignant neoplasm of breast (principal) | CPT/HCPCS: 77063; 77067 ==

== ENCOUNTER 2023-10-05 09:59 | Outpatient (REF) | payer BC, SELFPAY ==
[2023-10-05 10:13] LABS: MANUAL DIFF FLAG NO
[2023-10-05 10:30] LABS: Basophils Absolute Auto 0.1 X10*3/uL (0.0-0.2); Basophils Percent Auto 0.9 % (0-2); Eosinophils Absolute Auto 0.1 X10*3/uL (0.0-0.4); Eosinophils Percent Auto 1.3 % (0-4); Hematocrit 40.4 % (37.0-47.0); Hemoglobin 13.6 g/dl (12.0-16.0); Imm Gran Abs Auto 0.02 X10*3/uL (0.00-0.03); Imm Gran Pct Auto 0.3 % (0.0-0.4); Lymphocytes Absolute Auto 2.2 X10*3/uL (1.2-4.9); Lymphocytes Percent Auto 32.7 % (20-40); Mean Corpuscular HGB Conc 33.7 g/dl (31.0-35.0); Mean Corpuscular Hemoglobin 30.8 pg (27.0-33.0); Mean Corpuscular Volume 91.4 fL (80.0-98.0); Mean Platelet Volume 10.7 fL (9.4-12.3); Monocytes Absolute Auto 0.5 X10*3/uL (0.1-1.2); Monocytes Percent Auto 7.3 % (2-11); Neutrophils Absolute Auto 3.9 x10*3/uL (2.0-8.3); Neutrophils Percent Auto 57.5 % (45-73); Platelet Count 345 X10*3/uL (160-400); Red Blood Count 4.42 X10*6/uL (4.20-5.50); Red Cell Distribution Width 12.7 % (11.0-16.0); White Blood Count 6.9 X10*3/uL (4.8-10.8)
[2023-10-05 11:26] LABS: Alanine Aminotransferase 10 U/L (0-31); Albumin Level 4.3 g/dL (3.5-5.0); Alkaline Phosphatase 58 U/L (39-117); Anion Gap 12 (12-20); Aspartate Amino Transferase 13 U/L (5-31); Bilirubin Total 0.5 mg/dL (0.0-1.0); Blood Urea Nitrogen 17 mg/dL (9-16); Calcium 9.6 mg/dL (8.4-10.2); Carbon Dioxide 25 mmol/L (22-29); Chloride 105 mmol/L (96-108); Cholesterol 268 mg/dL (<200); Estimated Glomerular Filt Rate > 60; Free T4 (Free Thyroxine) 0.78 ng/dL (0.71-1.85); Glucose Random 93 mg/dL (60-115); HDL Cholesterol 53 mg/dL (>40); LDL Cholesterol Calculated 201 mg/dL (<100); Potassium 4.6 mmol/L (3.3-5.1); Sodium 137 mmol/L (135-145); Thyroid Stimulating Hormone 2.67 uIU/mL (0.32-4.0); Total Protein 7.3 g/dL (6.5-8.0); Triglycerides 73 mg/dL (<150); Vitamin D 25-OH Total 40.5 ng/mL (>30)
[2023-10-05 12:06] LABS: Folate 11.2 ng/mL (> or = 4.0); Vitamin B12 1012 pg/mL (200-900)
== END 2023-10-05 10:00 | disposition home or self-care (01) ==
LOC: HO.LAB 09:59
PROVIDERS: PCP Internal Medicine; Visit Provider Internal Medicine
DX: E78.00 Pure hypercholesterolemia, unspecified (principal)
CPT/HCPCS: 36415; 80053; 80061; 82306; 82607; 82746; 84439; 84443; 85025

== ENCOUNTER 2023-10-08 08:19 | Outpatient (AMB) | payer BC, SELFPAY ==
--- NOTE | 2023-10-08 08:20 | A.OFFPC_ITS ---
Vital Signs 10/08/23 08:21 Height 5 ft 2 in Weight 151 lb BMI 27.6 BP 130/78 Blood Pressure Location Lt brachial Position Sitting Pulse 75 Pulse Source Pulse Oximeter Pulse Oximetry (%) 98 Oxygen Delivery Method Room Air Intake Visit Reasons: HTN, hypercholesterol Allergies simvastatin Adverse Reaction (Intermediate, Verified 10/08/23 08:21) myalgia Tobacco use date assessed: 10/08/23 Dental Screening Dental Screen Date: 10/08/23 Did you have a dental visit in the last 12 months?: Yes Did you have a dental problem in the last 6 months where you did not have access to dental care?: No Was dental information given to patient?: Patient has dentist HPI HTN, hypercholesterol HPI Details 53-year-old overweight female with a his tory of hypertension hypercholesterolemia coming in for follow-up. Last seen for physical exam in August 2023 blood work was done in is here for follow-up. Patient's blood pressure showed an elevated LDL to 200+ and so patient was called in. Meanwhile patient has not taken her blood pressure medication and was wanting to find out how her blood pressure would go. Patient's blood pressure today is controlled and so will continue to monitor. Meanwhile has been doing a little bit of exercise. Understand that the patient actually does not like to take medications. But discussed the concerns of having a positive cardiac family history. [facility], [facility] Medical History (Updated 09/07/23 @ 10:26 by Sharmin Culver MD) Foot pain, left Finger pain, left Chest pain Colonoscopy refused Colon cancer screening Obesity (BMI 30.0-34.9) Periodic limb movement disorder Hypercholesterolemia Surgical History History of arthroscopy of left shoulder Family History Father Myocardial infarction Mother Cervical cancer Hypertension Hyperlipidemia CAD (coronary artery disease) Uterine cancer Maternal Grandmother Ovarian cancer Maternal Grandfather Myocardial infarction Brother No problems noted. Brother No problems noted. Sister No problems noted. Sister No problems noted. Son No problems noted. Social History (Updated 09/07/23 @ 10:30 by Sharmin Culver MD) Housing: House Alcohol intake: current Alcohol intake frequency: holidays/special occasions only Alcohol type: wine Comment: once a month 1-2 glasses of wine Patient Tobacco Use Status: Former Tobacco user Tobacco use type: Cigarette Years Smoked: 1999 Quit e-Cigarette/Vaping Use: Never Used Second Hand Smoke Exposure: No Current occupational status: employed Cognitive needs: No Hearing needs: No Vision needs: Yes Female Reproductive History Menstrual Date of Mammogram: 09/03/22 History of abnormal mammogram: No Questionnaire PHQ-9 Over the last 2 weeks, how often have you been bothered by any of the following problems? 1. Little interest or pleasure in doing things: not at all 2. Feeling down, depressed, or hopeless: not at all 3. Trouble falling or staying asleep, or sleeping too much: not at all 4. Feeling tired or having little energy: not at all 5. Poor appetite or overeating: not at all 6. Feeling bad about yourself - or that you are a failure or have let yourself or your family down: not at all 7. Trouble concentrating on things, such as reading the newspaper or watching television: not at all 8. Moving or speaking so slowly that other people could have noticed. Or the opposite - being so fidgety or restless that you have been moving around a lot more than usual: not at all 9. Thoughts that you would be better off or of hurting yourself in some way: not at all Total score: 0 Depression Screening Interpretation: Negative Depression Screening Done: Yes Source: Developed by Drs. Jim Hernandez, Nikia Bowman, Jesus Sainz and colleagues, with an educational terrie from [employer]. Thrive Questionnaire Date Thrive assessed: 10/08/23 I am a: Patient What is your living situation today?: I have a steady place to live Within the past 12 months, did the food you bought not last and you didn't have the money to get more?: Never true Within the past 12 months, did you worry whether your food would run out before you got money to buy more?: Never true Do you have trouble paying for medicines?: No Do you have trouble getting transportation to medical appointments?: No Do you have trouble paying your heating and electricity bill?: No Do you have trouble taking care of your child, family member or friend?: No Do you have trouble with day-to-day activities such as bathing, preparing meals, shopping, managing finances, etc.?: No Are you currently unemployed and looking for a job?: No Are you interested in more education?: No Please select the resources that you would like help with: None Currently or been in a relationship where the following occur: no concerns reported THRIVE Score: 0 AUDIT C Alcohol Use Questionnaire (AUDIT-C) 1. How often do you have a drink containing alcohol?: Never 3. How often do you have six or more drinks on one occasion?: Never Total Score: 0 CEDRIC-7 AMB Questionnaire CEDRIC-7 Date CEDRIC - 7 assessed: 10/08/23 Feeling nervous, anxious, or on edge: 0 = Not at all Not being able to stop or control worryin = Not at all Worrying too much about different things: 0 = Not at all Trouble relaxin = Not at all Being so restless that it is hard to sit still: 0 = Not at all Becoming easily annoyed or irritable: 0 = Not at all Feeling afraid as if something awful might happen: 0 = Not at all Total CEDRIC-7 score (0-4 normal; 5-9 mild; 10-14 moderate; 15-21 severe): 0 Source: Developed by Drs. Jim Hernandez, Nikia Bowman, Jesus Sainz and colleagues, with an educational terrie from [employer]. Physical exam (Primary Care) Vital Signs: Last Vital Signs Pulse 75 10/08/23 08:21 BP 130/78 10/08/23 08:21 Pulse Ox 98 10/08/23 08:21 Oxygen Delivery Method Room Air 10/08/23 08:21 BMI result Body Mass Index 27.6 Tobacco/Smoking Status: Tobacco use Status Tobacco use date assessed 10/08/23 10/08/23 08:25 Patient Tobacco Use Status Former Tobacco user 10/08/23 08:25 Tobacco use type Cigarette 10/08/23 08:25 e-Cigarette/Vaping Use Never Used 10/08/23 08:25 PHQ-9: PHQ-9 Score PHQ-9: Total score 0 10/08/23 08:33 Depression Screening Interpretation: Negative Thrive Assessment: Date of Thrive Assessment Date Thrive assessed 10/08/23 10/08/23 08:25 Currently or been in a relationship where the following occur: no concerns reported Const General: alert; No acute distress Eyes Conjunctivae: conjunctivae normal Resp Auscultation: clear to auscultation bilaterally Cardio Rate: regular rate Rhythm: regular rhythm GI Inspection: Yes normal to inspection Extrem General: Yes normal to inspection and No edema Assessment and Plan Assessment & Plan (1) Hypercholesterolemia: Code(s): E78.00 - Pure hypercholesterolemia, unspecified Plan: Avoid fried foods, chicken skin, eggs, butter margarine, pastries and meat. Be it pork or beef they have a lot of cholesterol LDL goal of less than 130 and triglyceride of less than 150. Patient has family history of parents having heart problems in with this discussed with the patient on the need to lower down the cholesterol. Patient was not able to tolerate simvastatin and states that has been eating better as well as doing a little bit of exercise. With this LDL more than 200 advised to start on cholesterol medication and will see if patient can tolerate it. (2) Hypertension: Code(s): I10 - Essential (primary) hypertension Plan: Patient's blood pressure has remained good despite stopping the medication for blood pressure 1 month ago. Advised to continue holding it and monitor the blood pressure and if we see that the blood pressure is rising up then will need medication. (3) Overweight (BMI 25.0-29.9): Code(s): E66.3 - Overweight Plan: Continue with diet and exercise Orders: Orders Lipid Panel 3 Months E78.00 - Pure hypercholesterolemia, unspecified Comprehensive Met. Panel 3 Months E78.00 - Pure hypercholesterolemia, unspecified Medications: New rosuvastatin 5 mg PO DAILY 30 tabs 3RF E78.00 - Pure hypercholesterolemia, unspecified Discontinued amlodipine Discontinued Reason: Patient Refused 5 mg PO DAILY 90 tabs 2RF I10 - Essential (primary) hypertension Coding Level of Care Code Est Pt Level 4 (27639) Diagnoses Hypercholesterolemia E78.00 Hypertension I10 Overweight (BMI 25.0-29.9) E66.3
[2023-10-08 08:21] VITALS: BP 130/78; PULSE 75; O2SAT 98; BMI 27.6
== END 2023-10-08 08:43 | disposition home or self-care (01) ==
PROVIDERS: PCP Internal Medicine; Visit Provider Internal Medicine
DX: E78.00 Pure hypercholesterolemia, unspecified (principal); I10 Essential (primary) hypertension; E66.3 Overweight
CPT/HCPCS: 99214

== ENCOUNTER 2024-02-15 08:17 | Outpatient (REF) | payer BC, SELFPAY ==
[2024-02-15 09:14] LABS: Alanine Aminotransferase 13 U/L (0-31); Albumin Level 4.2 g/dL (3.5-5.0); Alkaline Phosphatase 53 U/L (39-117); Anion Gap 10 (12-20); Aspartate Amino Transferase 16 U/L (5-31); Bilirubin Total 0.7 mg/dL (0.0-1.0); Blood Urea Nitrogen 20 mg/dL (9-16); Calcium 9.7 mg/dL (8.4-10.2); Carbon Dioxide 28 mmol/L (22-29); Chloride 107 mmol/L (96-108); Cholesterol 196 mg/dL (<200); Estimated Glomerular Filt Rate > 60; Glucose Random 104 mg/dL (60-115); HDL Cholesterol 53 mg/dL (>40); LDL Cholesterol Calculated 126 mg/dL (<100); Potassium 4.8 mmol/L (3.3-5.1); Sodium 140 mmol/L (135-145); Total Protein 7.2 g/dL (6.5-8.0); Triglycerides 86 mg/dL (<150)
== END 2024-02-15 08:18 | disposition home or self-care (01) ==
LOC: HO.LAB 08:17
PROVIDERS: PCP Internal Medicine; Visit Provider Internal Medicine
DX: E78.00 Pure hypercholesterolemia, unspecified (principal)
CPT/HCPCS: 36415; 80053; 80061

== ENCOUNTER 2024-02-19 08:10 | Outpatient (AMB) | payer BC, SELFPAY ==
[2024-02-19 08:12] VITALS: BP 164/98; PULSE 73; O2SAT 98; BMI 29.6
--- NOTE | 2024-02-19 08:12 | MHC.PC.OV ---
Vital Signs 02/19/24 08:12 Height 5 ft 2 in Weight 162 lb BMI 29.6 BP 164/98 H Blood Pressure Location Lt brachial Position Sitting Pulse 73 Pulse Source Pulse Oximeter Pulse Oximetry (%) 98 Oxygen Delivery Method Room Air Intake Visit Reasons: Hypertension, hypercholesterolemia Allergies simvastatin Adverse Reaction (Intermediate, Verified 02/19/24 08:12) myalgia Tobacco use date assessed: 10/08/23 Dental Screening Dental Screen Date: 10/08/23 HPI Hypertension, hypercholesterolemia HPI Details [age] overweight female(noted 11 lb weight gain) with hypertension and hypercholesterolemia last seen in September 2023. Patient's mammogram is up-to-date August 2023 Cologuard test is up-to-date September 2021. Concerns about the mass on the right axilla recently but this has resolved. Also was recently on vacation trip in October and has been snacking a lot. [facility] Medical History (Updated 02/19/24 @ 08:32 by Sharmin Culver MD) Foot pain, left Finger pain, left Chest pain Colonoscopy refused Colon cancer screening Obesity (BMI 30.0-34.9) Periodic limb movement disorder Hypercholesterolemia Surgical History History of arthroscopy of left shoulder Family History Father Myocardial infarction Mother Cervical cancer Hypertension Hyperlipidemia CAD (coronary artery disease) Uterine cancer Maternal Grandmother Ovarian cancer Maternal Grandfather Myocardial infarction Brother No problems noted. Brother No problems noted. Sister No problems noted. Sister No problems noted. Son No problems noted. Social History (Updated 09/07/23 @ 10:30 by Sharmin Culver MD) Housing: House Alcohol intake: current Alcohol intake frequency: holidays/special occasions only Alcohol type: wine Comment: once a month 1-2 glasses of wine Patient Tobacco Use Status: Former Tobacco user Tobacco use type: Cigarette Years Smoked: 1999 Quit e-Cigarette/Vaping Use: Never Used Second Hand Smoke Exposure: No Current occupational status: employed Cognitive needs: No Hearing needs: No Vision needs: Yes Questionnaire PHQ-9 Over the last 2 weeks, how often have you been bothered by any of the following problems? 1. Little interest or pleasure in doing things: not at all 2. Feeling down, depressed, or hopeless: not at all 3. Trouble falling or staying asleep, or sleeping too much: not at all 4. Feeling tired or having little energy: not at all 5. Poor appetite or overeating: not at all 6. Feeling bad about yourself - or that you are a failure or have let yourself or your family down: not at all 7. Trouble concentrating on things, such as reading the newspaper or watching television: not at all 8. Moving or speaking so slowly that other people could have noticed. Or the opposite - being so fidgety or restless that you have been moving around a lot more than usual: not at all 9. Thoughts that you would be better off or of hurting yourself in some way: not at all Total score: 0 Depression Screening Interpretation: Negative Depression Screening Done: Yes Source: Developed by Drs. Jim Hernandez, Nikia Bowman, eJsus Sainz and colleagues, with an educational terrie from [employer]. Thrive Questionnaire Date Thrive assessed: 10/08/23 AUDIT C Alcohol Use Questionnaire (AUDIT-C) 1. How often do you have a drink containing alcohol?: Never 3. How often do you have six or more drinks on one occasion?: Never Total Score: 0 CEDRIC-7 AMB Questionnaire CEDRIC-7 Date CEDRIC - 7 assessed: 10/08/23 Source: Developed by Drs. Jim Hernandez, Nikia Bowman, Jesus Sainz and colleagues, with an educational terrie from [employer]. Physical exam (Primary Care) Vital Signs: Last Vital Signs Pulse 73 02/19/24 08:12 BP 164/98 H 02/19/24 08:12 Pulse Ox 98 02/19/24 08:12 Oxygen Delivery Method Room Air 02/19/24 08:12 BMI result Body Mass Index 29.6 Tobacco/Smoking Status: Tobacco use Status Tobacco use date assessed 10/08/23 02/19/24 08:17 Patient Tobacco Use Status Former Tobacco user 02/19/24 08:17 Tobacco use type Cigarette 02/19/24 08:17 e-Cigarette/Vaping Use Never Used 02/19/24 08:17 PHQ-9: PHQ-9 Score PHQ-9: Total score 0 02/19/24 08:42 Depression Screening Interpretation: Negative Thrive Assessment: Date of Thrive Assessment Date Thrive assessed 10/08/23 02/19/24 08:17 Const General: alert; No acute distress Eyes Conjunctivae: conjunctivae normal Resp Auscultation: clear to auscultation bilaterally Cardio Rate: regular rate Rhythm: regular rhythm GI Inspection: Yes normal to inspection Extrem General: Yes normal to inspection and No edema Results AMB Hemoglobin A1c AMB Hemoglobin A1c 5.1 % Last Edit by Lenora Wang CMA on 02/19/24 08:43 Results Reviewed Results Reviewed: Laboratory Last Values Hgb A1c (Clinic) 5.1 % (4.0-6.0) 02/19/24 08:42 Assessment and Plan Assessment & Plan (1) Overweight (BMI 25.0-29.9): Code(s): E66.3 - Overweight Plan: Diet and exercise (2) Hypertension: Code(s): I10 - Essential (primary) hypertension Plan: Continue with blood pressure medication. Decrease salt intake and exercise patient has been placed on amlodipine 5 mg once a day-just started, will monitor (3) Hypercholesterolemia: Code(s): E78.00 - Pure hypercholesterolemia, unspecified Plan: Avoid fried foods, chicken skin, eggs, butter margarine, pastries and meat. Be it pork or beef they have a lot of cholesterol LDL goal of less than 130 and triglyceride of less than 150. did not take meds and did diet (4) GERD (gastroesophageal reflux disease): Code(s): K21.9 - Gastro-esophageal reflux disease without esophagitis Plan: Avoid the foods that causes that usually spicy foods, tomato products, juices, coffee, soda and foods that your sensitive to. After eating do not lie down, allow 3-4 hours before in lie down. And keep the head of bed above 30 degrees to avoid the acid from going up. (5) Impaired fasting blood sugar: Code(s): R73.01 - Impaired fasting glucose Plan: Decrease the amount of carbohydrate intake, pasta, bread, rice and potatoes are all sugar and that is aside from all the sweet stuff, remember that fruits are good but they are Sweet also. Orders: Orders AMB Hemoglobin A1c Today Z13.9 - Encounter for screening, unspecified Thyroid Stimulating Hormone 3 Months R73.01 - Impaired fasting glucose Free T4 (Free Thyroxine) 3 Months R73.01 - Impaired fasting glucose Liver Panel 3 Months E78.00 - Pure hypercholesterolemia, unspecified, R79.89 - Other specified abnormal findings of blood chemistry Hemoglobin A1c 3 Months R73.01 - Impaired fasting glucose Comprehensive Met. Panel 3 Months E78.00 - Pure hypercholesterolemia, unspecified Coding Level of Care Code Est Pt Level 4 (39378) Diagnoses Overweight (BMI 25.0-29.9) E66.3 Hypertension I10 Hypercholesterolemia E78.00 GERD (gastroesophageal reflux disease) K21.9 Impaired fasting blood sugar R73.01
== END 2024-02-19 08:55 | disposition home or self-care (01) ==
PROVIDERS: PCP Internal Medicine; Visit Provider Internal Medicine
DX: E66.3 Overweight (principal); I10 Essential (primary) hypertension; E78.00 Pure hypercholesterolemia, unspecified; K21.9 Gastro-esophageal reflux disease without esophagitis; R73.01 Impaired fasting glucose; Z13.9 Encounter for screening, unspecified
CPT/HCPCS: 83036; 99214

== ENCOUNTER 2024-03-08 15:25 | Outpatient (AMB) | payer BC, SELFPAY ==
[2024-03-08 15:26] VITALS: BP 140/90; PULSE 68; O2SAT 98; BMI 29.3
--- NOTE | 2024-03-08 15:26 | MHC.PC.OV ---
Vital Signs 03/08/24 15:26 Height 5 ft 2 in Weight 160 lb 0.4 oz BMI 29.3 BP 140/90 H Blood Pressure Location Lt brachial Position Sitting Pulse 68 Pulse Source Pulse Oximeter Pulse Oximetry (%) 98 Oxygen Delivery Method Room Air Intake Visit Reasons: High BP Readings Radiology Transporter Required: No Allergies simvastatin Adverse Reaction (Intermediate, Verified 03/08/24 16:02) myalgia Tobacco use date assessed: 10/08/23 Dental Screening Dental Screen Date: 10/08/23 HPI High BP Readings HPI Details 53-year-old overweight female with a history of hypertension hypercholesterolemia GERD impaired glucose tolerance last seen in February 19 2024. Patient's mammograms up-to-date colonoscopy Cologuard done October 16- chest pain while sitting, , chest heaviness , no dizzine radiating to the neck area [facility] Medical History (Updated 03/08/24 @ 16:44 by Sharmin Culver MD) Chest pain Foot pain, left Finger pain, left Colonoscopy refused Colon cancer screening Obesity (BMI 30.0-34.9) Periodic limb movement disorder Hypercholesterolemia Surgical History History of arthroscopy of left shoulder Family History Father Myocardial infarction Mother Cervical cancer Hypertension Hyperlipidemia CAD (coronary artery disease) Uterine cancer Maternal Grandmother Ovarian cancer Maternal Grandfather Myocardial infarction Brother No problems noted. Brother No problems noted. Sister No problems noted. Sister No problems noted. Son No problems noted. Social History (Updated 09/07/23 @ 10:30 by Sharmin Culver MD) Housing: House Alcohol intake: current Alcohol intake frequency: holidays/special occasions only Alcohol type: wine Comment: once a month 1-2 glasses of wine Patient Tobacco Use Status: Former Tobacco user Tobacco use type: Cigarette Years Smoked: 1999 Quit e-Cigarette/Vaping Use: Never Used Second Hand Smoke Exposure: No Current occupational status: employed Cognitive needs: No Hearing needs: No Vision needs: Yes Questionnaire PHQ-9 Over the last 2 weeks, how often have you been bothered by any of the following problems? 1. Little interest or pleasure in doing things: not at all 2. Feeling down, depressed, or hopeless: not at all 3. Trouble falling or staying asleep, or sleeping too much: not at all 4. Feeling tired or having little energy: not at all 5. Poor appetite or overeating: not at all 6. Feeling bad about yourself - or that you are a failure or have let yourself or your family down: not at all 7. Trouble concentrating on things, such as reading the newspaper or watching television: not at all 8. Moving or speaking so slowly that other people could have noticed. Or the opposite - being so fidgety or restless that you have been moving around a lot more than usual: not at all 9. Thoughts that you would be better off or of hurting yourself in some way: not at all Total score: 0 Depression Screening Interpretation: Negative Depression Screening Done: Yes Source: Developed by Drs. Jim Hernandez, Nikia Bowman, Jesus Sainz and colleagues, with an educational terrie from [employer]. Thrive Questionnaire Date Thrive assessed: 10/08/23 I am a: Patient What is your living situation today?: I have a steady place to live Within the past 12 months, did the food you bought not last and you didn't have the money to get more?: Never true Within the past 12 months, did you worry whether your food would run out before you got money to buy more?: Never true Do you have trouble paying for medicines?: No Do you have trouble getting transportation to medical appointments?: No Do you have trouble paying your heating and electricity bill?: No Do you have trouble taking care of your child, family member or friend?: No Do you have trouble with day-to-day activities such as bathing, preparing meals, shopping, managing finances, etc.?: No Are you currently unemployed and looking for a job?: No Are you interested in more education?: No Please select the resources that you would like help with: None Currently or been in a relationship where the following occur: No concerns reported THRIVE Score: 0 AUDIT C Alcohol Use Questionnaire (AUDIT-C) 1. How often do you have a drink containing alcohol?: Never 3. How often do you have six or more drinks on one occasion?: Never Total Score: 0 CEDRIC-7 AMB Questionnaire CEDRIC-7 Date CEDRIC - 7 assessed: 10/08/23 Source: Developed by Drs. Jim Hernandez, Nikia Bowman, Jesus Sainz and colleagues, with an educational terrie from [employer]. Physical exam (Primary Care) Vital Signs: Last Vital Signs Pulse 68 03/08/24 15:26 BP 140/90 H 03/08/24 15:26 Pulse Ox 98 03/08/24 15:26 Oxygen Delivery Method Room Air 03/08/24 15:26 BMI result Body Mass Index 29.3 Tobacco/Smoking Status: Tobacco use Status Tobacco use date assessed 10/08/23 03/08/24 15:27 Patient Tobacco Use Status Former Tobacco user 03/08/24 15:27 Tobacco use type Cigarette 03/08/24 15:27 e-Cigarette/Vaping Use Never Used 03/08/24 15:27 PHQ-9: PHQ-9 Score PHQ-9: Total score 0 03/08/24 16:22 Depression Screening Interpretation: Negative Thrive Assessment: Date of Thrive Assessment Date Thrive assessed 10/08/23 03/08/24 15:27 Currently or been in a relationship where the following occur: No concerns reported Const General: alert; No acute distress Eyes Conjunctivae: conjunctivae normal Resp Auscultation: clear to auscultation bilaterally Cardio Rate: regular rate Rhythm: regular rhythm GI Inspection: Yes normal to inspection Extrem General: Yes normal to inspection and No edema Office Procedures EKG [id number], Complete Assessment and Plan Assessment & Plan (1) Impaired fasting blood sugar: Code(s): R73.01 - Impaired fasting glucose Plan: Decrease the amount of carbohydrate intake, pasta, bread, rice and potatoes are all sugar and that is aside from all the sweet stuff, remember that fruits are good but they are Sweet also. Patient's last blood work was good diet control (2) Overweight (BMI 25.0-29.9): Code(s): E66.3 - Overweight Plan: Diet and exercise (3) Hypertension: Code(s): I10 - Essential (primary) hypertension Plan: Presently on amlodipine 5 mg once a day. low salt diet, loose the weight . (4) Hypercholesterolemia: Code(s): E78.00 - Pure hypercholesterolemia, unspecified Plan: Avoid fried foods, chicken skin, eggs, butter margarine, pastries and meat. Be it pork or beef they have a lot of cholesterol diet controlled (5) Chest pain: Code(s): R07.9 - Chest pain, unspecified Plan: will do ekg and work up cardiac. EKG showing sinus bradycardia at 55 with a PVC otherwise negative. This was compared in 2022 EKG no changes FROM 2022, sINUs nradycardia- will work up . ordered Stress test (6) Costochondritis: Code(s): M94.0 - Chondrocostal junction syndrome [Tietze] Plan: reassurance but if pain gets worse - ER Orders: Orders XR chest 2V Today R07.9 - Chest pain, unspecified CA stress test Today R07.9 - Chest pain, unspecified AMB EKG-In Office Today R07.9 - Chest pain, unspecified Coding Level of Care Code Est Pt Level 4 (67338) Diagnoses Impaired fasting blood sugar R73.01 Overweight (BMI 25.0-29.9) E66.3 Hypertension I10 Hypercholesterolemia E78.00 Chest pain R07.9 Costochondritis M94.0 CPT Codes EKG - CPT: 14875-[id number], Complete ([id number])
== END 2024-03-08 17:18 | disposition home or self-care (01) ==
PROVIDERS: PCP Internal Medicine; Visit Provider Internal Medicine
DX: R73.01 Impaired fasting glucose (principal); E66.3 Overweight; I10 Essential (primary) hypertension; E78.00 Pure hypercholesterolemia, unspecified; R07.9 Chest pain, unspecified; M94.0 Chondrocostal junction syndrome [Tietze]
CPT/HCPCS: 93000; 99214

== ENCOUNTER 2024-03-08 16:58 | Outpatient (REF) | payer BC, SELFPAY ==
--- NOTE | ~2024-03-08 | XR_ITS ---
EXAMINATION: XR CHEST CLINICAL INFORMATION: Chest pain COMPARISON: Chest 11/19/2021 TECHNIQUE: 2 views of the chest were obtained. FINDINGS: No significant abnormality is noted involving the heart, lungs, mediastinum, bony thorax or soft tissues. Again noted are postsurgical changes to the left shoulder. XR/XR chest 2V IMPRESSION: No acute cardiopulmonary disease. Electronically signed by: Munira Ellis MD 03/31/2024 01:21 PM EDT RP
== END 2024-03-08 16:59 | disposition home or self-care (01) ==
LOC: HO.XRAY 16:58
PROVIDERS: PCP Internal Medicine; Visit Provider Internal Medicine
DX: R07.9 Chest pain, unspecified (principal)
CPT/HCPCS: 71046

== ENCOUNTER → 2024-04-08 09:24 | Outpatient (REF) | payer BC, SELFPAY ==
--- NOTE | 2024-04-08 09:27 | CA_ITS ---
Acquisition Time: 2024-04-08 09:33:35 Total Exercise Time: 00:05:01 Test Indications: CP Medications: AMLODIPINE Protocol: CLINT Max HR: 169 BPM 100% of Pred: 168 BPM Max BP: 198/088 mmHG Max Work Load: 7.0 METS Exercise stress test with exercise 5 min 1 sec of Clint protocol, achieving 93% MPHR, with 2/10 left chest tightness at baseline which did not change during exercise, with mild sob, with isolated PVC, with normotensive response to exercise, with EKG changes meeting criteria for ischemia: 1-[address] depression inferiorly and V4-V6, ST elevation AVR which gradually improves in recovery: meeting criteria for ischemia. Call placed to Dr Culver office, report given, recommended stress echocardiogram. Test reviewed with Dr Padilla Referred By: Sharmin Culver Overread By: GILBERTO BANEGAS
== END ==
LOC: HO.CARD 09:24
PROVIDERS: PCP Internal Medicine; Visit Provider Internal Medicine
DX: R07.9 Chest pain, unspecified (principal)
CPT/HCPCS: 93017

== ENCOUNTER → 2024-04-08 09:27 | Outpatient (BNV) | payer BC, SELFPAY | PROVIDERS: PCP Internal Medicine; Visit Provider Nurse Practitioner Family | DX: I49.3 Ventricular premature depolarization (principal); I25.5 Ischemic cardiomyopathy | CPT/HCPCS: 93016; 93018 ==

== ENCOUNTER → 2024-05-17 10:51 | Outpatient (REF) | payer BC, SELFPAY ==
--- NOTE | 2024-05-17 10:55 | CA_ITS ---
Acquisition Time: 2024-05-17 11:11:08 Total Exercise Time: 00:05:30 Test Indications: CHEST PAIN Medications: AMLODIPINE Protocol: CLINT Max HR: 162 BPM 96% of Pred: 168 BPM Max BP: 221/106 mmHG Max Work Load: 7.0 METS Exercise Stress Test with exercise 5 mins 30 secs of Clint Protocol, achieving 96% MPHR, with 3/10 chest tightness with exercise, with one PVC couplet, with hypertertensive response max 221/[address] changes: J point depression with upsloping ST segment inferiorly and V3-V6, improved with recovery. Echo images obtained by [place] at rest and immediately post peak exercise. Definity used. BP back to baseline. Chest tightness resolved. Test reviewed with Dr. Padilla. Referred By: Sharmin Culver Overread By: GILBERTO BANEGAS
== END ==
LOC: HO.CARD 10:51
PROVIDERS: PCP Internal Medicine; Visit Provider Internal Medicine
DX: R07.9 Chest pain, unspecified (principal)
CPT/HCPCS: 93350; Q9957

== ENCOUNTER → 2024-05-17 10:55 | Outpatient (BNV) | payer BC, SELFPAY | PROVIDERS: PCP Internal Medicine; Visit Provider Nurse Practitioner Family | DX: R07.9 Chest pain, unspecified (principal); I49.3 Ventricular premature depolarization | CPT/HCPCS: 93016; 93018; 93350; 93352 ==

== ENCOUNTER 2024-05-23 07:44 | Outpatient (AMB) | payer BC, SELFPAY ==
[2024-05-23 08:00] VITALS: BP 158/86; PULSE 56; O2SAT 98; BMI 30.2
--- NOTE | 2024-05-23 08:00 | A.OFFPC_ITS ---
Vital Signs 05/23/24 08:00 Height 5 ft 2 in Weight 165 lb BMI 30.2 BP 158/86 H Blood Pressure Location Lt brachial Position Sitting Pulse 56 Pulse Source Pulse Oximeter Pulse Oximetry (%) 98 Oxygen Delivery Method Room Air Intake Visit Reasons: IGT, Cholesterol , HTN Allergies simvastatin Adverse Reaction (Intermediate, Verified 05/23/24 08:00) myalgia Medication List - Last Reconciled 05/23/24 by Cara Decker PA-C amlodipine 5 mg PO DAILY ascorbate calcium (vitamin C) 500 mg PO DAILY cholecalciferol (vitamin D3) 25 mcg PO DAILY Tobacco use date assessed: 10/08/23 Dental Screening Dental Screen Date: 10/08/23 HPI IGT, Cholesterol , HTN HPI Details 53-year-old female with past medical his tory of hypertension, hypercholesterolemia, GERD, impaired glucose tolerance last seen 03/08/2024 coming in for follow up. Patient feels she could not appropriately evaluate her chest pain during the exam due to hip and back pain. She did have headache, pallor and dizziness after the exam was completed. She still feels very tired and has increased exercise intolerance and chest tightness. [facility] Medical History (Updated 03/08/24 @ 16:44 by Sharmin Culver MD) Chest pain Foot pain, left Finger pain, left Colonoscopy refused Colon cancer screening Obesity (BMI 30.0-34.9) Periodic limb movement disorder Hypercholesterolemia Surgical History History of arthroscopy of left shoulder Family History Father Myocardial infarction Mother Cervical cancer Hypertension Hyperlipidemia CAD (coronary artery disease) Uterine cancer Maternal Grandmother Ovarian cancer Maternal Grandfather Myocardial infarction Brother No problems noted. Brother No problems noted. Sister No problems noted. Sister No problems noted. Son No problems noted. Social History (Updated 09/07/23 @ 10:30 by Sharmin Culver MD) Housing: House Alcohol intake: current Alcohol intake frequency: holidays/special occasions only Alcohol type: wine Comment: once a month 1-2 glasses of wine Patient Tobacco Use Status: Former Tobacco user Tobacco use type: Cigarette Years Smoked: 1999 Quit e-Cigarette/Vaping Use: Never Used Second Hand Smoke Exposure: No Current occupational status: employed Cognitive needs: No Hearing needs: No Vision needs: Yes Questionnaire Thrive Questionnaire Date Thrive assessed: 10/08/23 AUDIT C Alcohol Use Questionnaire (AUDIT-C) 2. How many drinks containing alcohol do you have on a typical day when you are drinking?: 1 or 2 3. How often do you have six or more drinks on one occasion?: Never Total Score: 0 CEDRIC-7 AMB Questionnaire CEDRIC-7 Date CEDRIC - 7 assessed: 10/08/23 Source: Developed by Drs. Jim Hernandez, Nikia Bowman, Jesus Sainz and colleagues, with an educational terrie from [employer]. Review of Systems Const Denies body aches, Denies chills, Denies fever(s), Denies headache(s) and Denies poor appetite Eyes Reports no additional complaints ENT Denies dysphagia, Denies dizziness, Denies headache(s) and Denies odynophagia Card Denies chest pain, Reports chest pain with activity, Denies syncope, Denies edema, Denies irregular heart rhythm, Denies lightheadedness and Denies dyspnea Resp Denies cough and Denies dyspnea GI Denies abdominal pain, Denies constipation, Denies dysphagia, Denies diarrhea, Denies nausea, Denies odynophagia and Denies vomiting Reports no additional complaints Musc Reports no additional complaints and Denies abnormal gait Skin/Breast Reports system reviewed and no additional complaints, except as documented Neuro Denies abnormal gait, Denies dizziness, Denies syncope and Denies headache(s) Psych Reports no additional complaints Physical exam (Primary Care) Vital Signs: Last Vital Signs Pulse 56 05/23/24 08:00 BP 158/86 H 05/23/24 08:00 Pulse Ox 98 05/23/24 08:00 Oxygen Delivery Method Room Air 05/23/24 08:00 BMI result Body Mass Index 30.2 Tobacco/Smoking Status: Tobacco use Status Tobacco use date assessed 10/08/23 05/23/24 08:05 Patient Tobacco Use Status Former Tobacco user 05/23/24 08:05 Tobacco use type Cigarette 05/23/24 08:05 e-Cigarette/Vaping Use Never Used 05/23/24 08:05 Thrive Assessment: Date of Thrive Assessment Date Thrive assessed 10/08/23 05/23/24 08:05 Const General: cooperative, healthy appearing, comfortable and no acute distress Orientation/consciousness: patient oriented x3 HENMT Head: Yes normocephalic Ears: hearing grossly normal bilaterally General nose exam: Normal external nose present Eyes General: appearance normal, both eyes and all related structures Conjunctivae: conjunctivae normal Neck Neck: Yes full ROM and Yes no lymphadenopathy Resp Effort & Inspection: normal respiratory effort Auscultation: clear to auscultation bilaterally, no crackles, no rales, no rhonchi and no wheezes Cardio Rate: regular rate Rhythm: regular rhythm Skin General skin exam: no rashes or lesions noted Neuro General: patient oriented x3 Gait exam (Neuro): Normal gait present Extrem General: Yes normal to inspection, Yes full ROM and No edema Psych Affect: normal affect Attitude: cooperative Insight: Good insight present (Psych) Judgement: Good judgement present (Psych) Coding Level of Care Code Est Pt Level 3 (73030) Diagnoses Chest pain R07.9 Impaired fasting blood sugar R73.01 Hypertension I10 Overweight (BMI 25.0-29.9) E66.3 GERD (gastroesophageal reflux disease) K21.9 Hypercholesterolemia E78.00 Assessment & Plan Assessment & Plan (1) Chest pain: Code(s): R07.9 - Chest pain, unspecified Category: Medical Plan: Patient continues to have exercise-induced chest pain. Stress echo showed impaired diastolic filling. We will refer to Cardiology at this time. (2) Impaired fasting blood sugar: Code(s): R73.01 - Impaired fasting glucose Category: Medical Plan: Decrease the amount of carbohydrates such as pasta, bread, rice, and potatoes and limit the amount of sweets. Although fruits are generally healthy they should be eaten in moderation as they are still high in sugar. (3) Hypertension: Code(s): I10 - Essential (primary) hypertension Category: Medical Plan: Continue on current blood pressure medication. Avoid salt intake and encourage healthy diet and regular exercise. Increase amlodipine to 10 mg. (4) Overweight (BMI 25.0-29.9): Code(s): E66.3 - Overweight Category: Medical Plan: Healthy diet and regular exercise is encouraged. (5) GERD (gastroesophageal reflux disease): Code(s): K21.9 - Gastro-esophageal reflux disease without esophagitis Category: Medical Plan: Avoid trigger foods such as citrus, tomato products, soda, caffeine, spicy foods and other foods that may be irritating to your stomach. Avoid laying flat 3-4 hours after eating and elevate the head of the bed 30 degrees to prevent acid from moving into the esophagus. (6) Hypercholesterolemia: Code(s): E78.00 - Pure hypercholesterolemia, unspecified Category: Medical Plan: Avoid foods that are high in cholesterol such as red meat, fried foods, eggs and baked goods. Triglyceride goal of less than 150 and LDL goal of less than 130. Not currently on medication Plan This note was constructed using voice recognition software. While every effort has been made to ensure accuracy and marketing professor, still areas may have been included sometimes these areas may affect the content or meeting of the given symptoms. Total time spent caring for the patient today was 30 minutes. This includes time spent before the visit reviewing the chart, time spent during the visit, and time spent after the visit and documentation. Orders: Referrals Cardiology Referral R07.9 - Chest pain, unspecified Medications: New amlodipine 10 mg PO DAILY 30 tabs 2RF
== END 2024-05-23 08:53 | disposition home or self-care (01) ==
PROVIDERS: PCP Internal Medicine
DX: R07.9 Chest pain, unspecified (principal); R73.01 Impaired fasting glucose; I10 Essential (primary) hypertension; E66.3 Overweight; K21.9 Gastro-esophageal reflux disease without esophagitis; E78.00 Pure hypercholesterolemia, unspecified

== ENCOUNTER 2024-08-23 14:41 | Outpatient (AMB) | payer BC, SELFPAY ==
--- NOTE | 2024-08-23 15:11 | A.OFFPC_ITS ---
Vital Signs 08/23/24 15:28 Height 5 ft 2 in Weight 168 lb 2 oz BMI 30.7 BP 132/68 Blood Pressure Location Lt brachial Position Sitting Pulse 70 Pulse Source Pulse Oximeter Temp 97.1 F Temp Source Temporal Artery Scan Pulse Oximetry (%) 98 Oxygen Delivery Method Room Air Intake Visit Reasons: Ankle and leg swelling Intake Note: Patient is here to follow up on bilateral ankle and leg swelling with warm to touch. Complaint of headaches. Cook Starch Required: No Conductor/Brakeman: Present Accompanied by: Spouse Allergies simvastatin Adverse Reaction (Intermediate, Verified 08/25/24 22:33) myalgia Medication List - Last Reconciled 08/25/24 by TICO Gavin amlodipine 10 mg PO DAILY ascorbate calcium (vitamin C) 500 mg PO DAILY cholecalciferol (vitamin D3) 25 mcg PO DAILY Tobacco use date assessed: 08/23/24 Dental Screening Dental Screen Date: 08/23/24 Did you have a dental visit in the last 12 months?: Yes Did you have a dental problem in the last 6 months where you did not have access to dental care?: No Was dental information given to patient?: Patient has dentist HPI Ankle and leg swelling HPI Details Patient is a 54-year-old female with significant past medical history of GERD, hypercholesterolemia, hypertension, obesity The patient is presenting with complaints of bilateral leg swelling since Thursday Patient reports that she worked an 8 hour shift and noticed that her legs were extremely swollen Reports that she was having pain in her legs prior to the edema The patient has not taking her Norvasc since. She has been closely monitoring her blood pressure at home Her blood pressure has been within normal limits. Will add a BNP to the patient upcoming labs The patient denies chest pain, shortness of breath, dizziness, or heart palpitation Patient is currently wearing compression stockings with positive effects Trace pitting edema present around the ankles. Narvasc placed on hold for now. The patient has an upcoming appt with Dr. Culver, discussed with patient I will leave it upto Dr. Culver to decide on her going on a different blood pressure medication, since her blood pressure is stable at this time [facility] Medical History (Updated 08/23/24 @ 16:02 by TICO Gavin) Chest pain Foot pain, left Finger pain, left Colonoscopy refused Colon cancer screening Obesity (BMI 30.0-34.9) Periodic limb movement disorder Hypercholesterolemia Surgical History History of arthroscopy of left shoulder Family History Father Myocardial infarction Mother Cervical cancer Hypertension Hyperlipidemia CAD (coronary artery disease) Uterine cancer Maternal Grandmother Ovarian cancer Maternal Grandfather Myocardial infarction Brother No problems noted. Brother No problems noted. Sister No problems noted. Sister No problems noted. Son No problems noted. Social History Housing: House Alcohol intake: current Alcohol intake frequency: holidays/special occasions only Alcohol type: wine Comment: once a month 1-2 glasses of wine Patient Tobacco Use Status: Former Tobacco user Tobacco use type: Cigarette Years Smoked: 1999 Quit e-Cigarette/Vaping Use: Never Used Second Hand Smoke Exposure: Yes service: No Current occupational status: employed Cognitive needs: No Hearing needs: No Vision needs: Yes Questionnaire PHQ-9 Over the last 2 weeks, how often have you been bothered by any of the following problems? 1. Little interest or pleasure in doing things: not at all 2. Feeling down, depressed, or hopeless: not at all 3. Trouble falling or staying asleep, or sleeping too much: not at all 4. Feeling tired or having little energy: not at all 5. Poor appetite or overeating: not at all 6. Feeling bad about yourself - or that you are a failure or have let yourself or your family down: not at all 7. Trouble concentrating on things, such as reading the newspaper or watching television: not at all 8. Moving or speaking so slowly that other people could have noticed. Or the opposite - being so fidgety or restless that you have been moving around a lot more than usual: not at all 9. Thoughts that you would be better off or of hurting yourself in some way: not at all Total score: 0 Depression Screening Interpretation: Negative Depression Screening Done: Yes Source: Developed by Drs. Jim Hernandez, Nikia Bowman, Jesus Sainz and colleagues, with an educational terrie from [employer]. Thrive Questionnaire Date Thrive assessed: 08/23/24 I am a: Patient What is your living situation today?: I have a steady place to live Within the past 12 months, did the food you bought not last and you didn't have the money to get more?: Never true Within the past 12 months, did you worry whether your food would run out before you got money to buy more?: Never true Do you have trouble paying for medicines?: No Do you have trouble getting transportation to medical appointments?: No Do you have trouble paying your heating and electricity bill?: No Do you have trouble taking care of your child, family member or friend?: No Do you have trouble with day-to-day activities such as bathing, preparing meals, shopping, managing finances, etc.?: No Are you currently unemployed and looking for a job?: No Are you interested in more education?: No Please select the resources that you would like help with: None Currently or been in a relationship where the following occur: No concerns reported THRIVE Score: 0 AUDIT C Alcohol Use Questionnaire (AUDIT-C) 1. How often do you have a drink containing alcohol?: Monthly or less 2. How many drinks containing alcohol do you have on a typical day when you are drinking?: 1 or 2 Total Score: 1 CEDRIC-7 AMB Questionnaire CEDRIC-7 Date CEDRIC - 7 assessed: 08/23/24 Feeling nervous, anxious, or on edge: 0 = Not at all Not being able to stop or control worryin = Not at all Worrying too much about different things: 0 = Not at all Trouble relaxin = Not at all Being so restless that it is hard to sit still: 0 = Not at all Becoming easily annoyed or irritable: 0 = Not at all Feeling afraid as if something awful might happen: 0 = Not at all Total CEDRIC-7 score (0-4 normal; 5-9 mild; 10-14 moderate; 15-21 severe): 0 Source: Developed by Drs. Jim Hernandez, Nikia Bowman, Jesus Sainz and colleagues, with an educational terrie from [employer]. Review of Systems Const Details: Denies chills, Denies fatigue, Denies fever(s), Denies headache(s) and Denies weakness HEENT Denies change in vision, Denies dizziness, Denies headache(s), Denies hearing loss, Denies nasal congestion, Denies sinus pain, Denies sinus pressure and Denies sore throat Card Denies chest pain, Denies lightheadedness, Denies dyspnea and Denies other (palpitations) Resp Denies cough, Denies dyspnea and Denies wheezing GI Denies abdominal pain, Denies melena, Denies hematochezia, Denies change in bowel habits, Denies dyspepsia and Denies nausea Denies hematuria and Denies dysuria Musc Denies abnormal gait, Denies myalgias, Denies arthralgias, Denies numbness and Denies tingling reports bilateral leg swelling Skin/Breast Denies rash, Denies unusual bruising and Denies wounds Neuro Denies abnormal gait, Denies dizziness, Denies headache(s), Denies memory loss, Denies numbness, Denies Sensory deficit (Neuro), Denies tingling and Denies weakness Psych Denies anxiety, Denies depression and Denies memory loss Endo Denies cold intolerance, Denies fatigue, Denies heat intolerance, Denies polydipsia and Denies polyuria Jack/Lymph Denies easy bleeding and Denies easy bruising Aller/Immun Denies wheezing Physical exam (Primary Care) Vital Signs: Last Vital Signs Temp 97.1 F 08/23/24 15:28 Pulse 70 08/23/24 15:28 BP 132/68 08/23/24 15:28 Pulse Ox 98 08/23/24 15:28 Oxygen Delivery Method Room Air 08/23/24 15:28 BMI result Body Mass Index 30.7 Tobacco/Smoking Status: Tobacco use Status Tobacco use date assessed 08/23/24 08/23/24 15:36 Patient Tobacco Use Status Former Tobacco user 08/23/24 15:12 Tobacco use type Cigarette 08/23/24 15:12 e-Cigarette/Vaping Use Never Used 08/23/24 15:12 PHQ-9: PHQ-9 Score PHQ-9: Total score 0 08/23/24 15:49 Depression Screening Interpretation: Negative Thrive Assessment: Date of Thrive Assessment Date Thrive assessed 08/23/24 08/23/24 15:12 Currently or been in a relationship where the following occur: No concerns reported Const Other: General: no acute distress, well developed, alert and awake Nutritional Appearance: well nourished Orientation/consciousness: patient oriented x3 [facility] Head: Yes normocephalic and Yes atraumatic Eyes Pupils: Equal, round and reactive pupils present and Pupil accommodation reflex normal EOM: EOMs intact bilaterally Neck Neck: Yes normal visual inspection, Yes no lymphadenopathy and Yes trachea midline Thyroid: Thyroid normal Carotids: no bruits Lymphatic: no lymphadenopathy noted Resp Effort & Inspection: normal respiratory effort Auscultation: clear to auscultation bilaterally Cardio Rate: regular rate Rhythm: regular rhythm Heart sounds: S1 normal heart sound present, S2 normal heart sound present, no gallops, no murmurs and no rubs GI Palpation (GI): No Abdominal aortic bruit present, Soft to palpation, nontender, No hepatosplenomegaly present and No Rebound tenderness present Auscultation: normal bowel sounds General: Yes no CVA tenderness Skin General: warm and dry. Normal skin color. Normal skin turgor Lesions: no lesions Nails: normal Neuro General: patient oriented x3, gait normal Cranial nerves: Yes Equal, round and reactive pupils present Cognition (Neuro): normal cognition Gait exam (Neuro): Normal gait present Extrem General: Yes normal to inspection, No edema and No calf tenderness other: +1 pitting edema in bilateral ankles Psych Appearance: grossly normal Affect: normal affect Attitude: cooperative Thought process: Normal thought process present Coding Level of Care Code Est Pt Level 3 (77728) Diagnoses Leg swelling M79.89 Time Spent (min) 29 Assessment & Plan Assessment & Plan (1) Leg swelling: Code(s): M79.89 - Other specified soft tissue disorders Category: Medical Plan: Bilateral lower extremity edema, patient has stopped taking Norvasc due to concerns. Monitoring blood pressure closely at home, continues to be within normal limits, started wearing compression stockings with positive effects. Most of the swelling resolved, residual of +1 pitting edema in ankle bilaterally. BNP ordered. The patient has an upcoming appointment with Dr. Culver, discussed with the patient to continue on monitoring blood pressure so Dr. Culver could make a decision on if she needs to be on another blood pressure medication Orders: Orders B Type Natriuretic Peptide 08/24/24 M79.89 - Other specified soft tissue disorders Medications: On Hold amlodipine Hold Comment: Doctor's Order 10 mg PO DAILY 30 tabs 2RF
[2024-08-23 15:28] VITALS: BP 132/68; PULSE 70; TEMP 36.2; O2SAT 98; BMI 30.7
--- OUTSIDE RECORDS SUMMARY | 2024-08-23 18:30 | XMS_ITS | Encounter Summary ---
Author Organization [facility] Address [phone] [address] [place] [address] Care Team Providers Care Manager Clinic Name Role Phone Sharmin Culver MD Primary Care Provider [phone] Sharmin Culver MD Unavailable Sonya Thomas CNM Unavailable Brit Sainz CHIEF JAILER Unavailable [phone] Jourdan Devine DO Unavailable [phone] John Steven DPM Unavailable Unavailable Samantha Eisenberg PA-C Unavailable Severiano Reid MD Unavailable [phone] Encounter Details Date Type Department Care Team (Late st Contact Info) Description 10/29/2020 Ancillary Orders [facility],Outside Imaging [address] [place] [address] System, Provider Not In, PhD [address] [address] Social History Tobacco Use Types Packs/Day Years Used Date Smoking Tobacco: Former Cigarettes 2 - 2002 Smokeless Tobacco: Never Comments:~1 cigarette qd, <1 ppw Alcohol Use Standard Drinks/Week Comments Yes 1 (1 standard drink = 0.6 oz pur e alcohol) monthly Sex and Gender Information Value Date Recorded Sex Assigned at Not on file Gender Identity Not on file Sexual Orientation Not on file documented as of this encounter Plan of Treatment Not on file documented as of this encounter Results * US Breast Outside (No Interpretation) (08/10/2020 12:10 AM EST) Narrative SYSTEMGENERATED, DOCUMENTATION - 10/29/2020 12:56 PM EDT This study is for PACS storage only and not for interpretation. Provider Not In System PhD IMG OUTSIDE I MAGING W/OUT INTERPRETATION documented in this encounter Visit Diagnoses Not on filedocumented in this encounter Care Teams Manager Clinic Relationship Specialty Start Date End Date Sharmin Culver MD [address] [place] [id number] PCP - General 04/14/17 Sharmin Culver MD [address] [place] [id number] Historical LMR Provider 04/18/17 2 Sonya Thomas CNM [address] [place] [id number] Historical LMR Provider 04/18/17 Brit Hooks CHIEF JAILER [address] [place] [id number] [email or web address] Historical LMR Provider 04/18/17 07/06/21 Jourdan Devine DO [address] [place] [address] Orthopedics & [facility] Medicine, [facility] [place] [address] Historical LMR Provider 04/18/17 07/06/21 John Steven DPM [address] [place] [address] Historical LMR Provider 04/18/1707/06/21 Samantha Eisenberg PA-C [address] [place] [address] [facility] [place] [address] [email or web address] Historical LMR Provider 04/18/17 07/06/21 Severiano Reid MD [address] [place] [address], [address] [place] [address] [email or web address] Historical LMR Provider 04/18/17 documented as of this encounter Additional Source Comments The information contained in this document represents components of the legal health record. It is not the complete legal health record.[facility]
--- OUTSIDE RECORDS SUMMARY | 2024-08-23 18:30 | XMS_ITS | Encounter Summary ---
Author Organization [facility] Address [phone] [address] [place] [address] Care Team Providers Care Assistant Professor Of German Name Role Phone Sharmin Culver MD Primary Care Provider Sharmin Culver MD Unavailable [phone] Sonya Thomas CNM Unavailable Brit Sainz INTEGRATION MANAGER Unavailable [phone] Jourdan Devine DO Unavailable [phone] John Steven DPM Unavailable Unavailable Samantha Eisenberg PA-C Unavailable Severiano Reid MD Unavailable Encounter Details Date Type Department Care Team (Late st Contact Info) Description 10/29/2020 Ancillary Orders [facility],Outside Imaging 30 [place] [address] System, Provider Not In, PhD [address] [address] Social History Tobacco Use Types Packs/Day Years [...] * US Breast Outside (No Interpretation) (08/10/2020 12:05 AM EST) Narrative SYSTEMGENERATED, DOCUMENTATION - 10/29/2020 12:56 PM EDT This study is for PACS storage only and not for interpretation. Provider Not In System PhD IMG OUTSIDE I MAGING W/OUT INTERPRETATION documented in this encounter Visit Diagnoses Not on filedocumented in this encounter Care Teams Assistant Professor Of German Relationship Specialty Start Date End Date Sharmin Culver MD [address] [place] [address] PCP - General 04/14/17 Sharmin Culver MD [address] [place] [address] Historical LMR Provider 04/18/17 2 Sonya Thomas CNM [address] [place] [address] Historical LMR Provider 04/18/17 Brit Hooks INTEGRATION MANAGER [address] [place] [address] [email or web address] Historical LMR Provider 04/18/17 07/06/21 Jourdan Devine DO [address] [place] [address] Orthopedics & Sports Medicine, [facility] [place] [address] Historical LMR Provider 04/18/17 07/06/21 John Steven DPM [address] [place] [address] Historical LMR Provider 04/18/1707/06/21 Samantha Eisenberg PA-C [address] [place] [address] [facility] [place] [address] [email or web address] Historical LMR Provider 04/18/17 07/06/21 Severiano Reid MD [address] [place] [address], [address] [place] [address] [email or web address] Historical LMR Provider 04/18/17 documented as of this encounter Additional Source Comments The information contained in this document represents components of the legal health record. It is not the complete legal health record.[facility]
--- OUTSIDE RECORDS SUMMARY | 2024-08-23 18:30 | XMS_ITS | Encounter Summary ---
Author Organization [facility] Address [phone] [address] [place] [address] Care Team Providers Care Grocery Associate Name Role Phone Sharmin Culver MD Primary Care Provider Sharmin Culver MD Unavailable Sonya Thomas CNM Unavailable Brit Sainz BAND TACKER Unavailable [phone] Jourdan Devine DO Unavailable John Steven DPM Unavailable Unavailable Samantha Eisenberg PA-C Unavailable Severiano Reid MD Unavailable Encounter Details Date Type Department Care Team (Late st Contact Info) Description 10/29/2020 Ancillary Orders [facility],Outside Imaging [address] [place] [address] System, Provider Not In, PhD [address] [address] Social History Tobacco Use Types Packs/Day Years [...] documented as of this encounter Results * Mammogram Outside (No Interpretation) (11/27/2016 12:00 AM EDT) Narrative SYSTEMGENERATED, DOCUMENTATION - 10/29/2020 12:59 PM EDT This study is for PACS storage only and not for interpretation. Provider Not In System PhD IMG OUTSIDE I MAGING W/OUT INTERPRETATION documented in this encounter Visit Diagnoses Not on filedocumented in this encounter Care Teams Grocery Associate Relationship Specialty Start Date End Date Shamrin Culver MD [address] [place] [address] PCP - General 04/14/17 Sharmin Culver MD 2 [place] [address] Historical LMR Provider 04/18/17 2 Sonya Thomas CNM [address] [place] [address] Historical LMR Provider 04/18/17 Brit Hooks BAND TACKER [address] [place] [address] [email or web address] Historical LMR Provider 04/18/17 07/06/21 Jourdan Devine DO [address] [place] [address] Orthopedics & Sports Medicine, [facility] [place] [address] Historical LMR Provider 04/18/17 07/06/21 John Steven DPM [address] [place] [address] Historical LMR Provider 04/18/1707/06/21 Samantha Eisenberg PA-C [address] [place] [address] [facility] [place] [address] [email or web address] Historical LMR Provider 04/18/17 07/06/21 Severiano Reid MD [address] [place] [address], [address] [place] [address] [email or web address] Historical LMR Provider 04/18/17 documented as of this encounter Additional Source Comments The information contained in this document represents components of the legal health record. It is not the complete legal health record.[facility]
--- OUTSIDE RECORDS SUMMARY | 2024-08-23 18:30 | XMS_ITS | Encounter Summary ---
Author Organization [facility] Address [phone] [address] [place] [address] Care Team Providers Care Automobile And Property Underwriter Name Role Phone Sharmin Culver MD Primary Care Provider Sharmin Culver MD Unavailable [phone] Sonya Thomas CNM Unavailable Brit Sainz PATIENT TRANSPORTATION DRIVER Unavailable [phone] Jourdan Devine DO Unavailable [phone] John Steven DPM Unavailable Unavailable Samantha Eisenberg PA-C Unavailable Severiano Reid MD Unavailable [phone] Encounter Details Date Type Department Care Team (Late st Contact Info) Description 10/29/2020 Ancillary Orders [facility],Outside Imaging 30 [place] [address] System, Provider Not In, PhD [address] [address] Social History Tobacco Use Types Packs/Day Years [...] encounter Results * Mammogram Outside (No Interpretation) (12/14/2017 12:00 AM EDT) Narrative SYSTEMGENERATED, DOCUMENTATION - 10/29/2020 1:00 PM EDT This study is for PACS storage only and not for interpretation. Provider Not In System PhD IMG OUTSIDE I MAGING W/OUT INTERPRETATION documented in this encounter Visit Diagnoses Not on filedocumented in this encounter Care Teams Automobile And Property Underwriter Relationship Specialty Start Date End Date Sharmin Culver MD [address] [place] [address] PCP - General 04/14/17 Sharmin Cuvler MD [address] [place] [address] Historical LMR Provider 04/18/17 2 Sonya Thomas CNM [address] [place] [address] Historical LMR Provider 04/18/17 Brit Hooks PATIENT TRANSPORTATION DRIVER [address] [place] [address] Historical LMR Provider 04/18/17 07/06/21 Jourdan Devine DO [address] [place] [address] Orthopedics & Sports Medicine, [facility] [place] [address] Historical LMR Provider 04/18/17 07/06/21 John Steven DPM [address] [place] [address] Historical LMR Provider 04/18/1707/06/21 Samantha Eisenberg PA-C [address] [place] [address] [facility] [place] [address] [email or web address] Historical LMR Provider 04/18/17 07/06/21 Severiano Reid MD [address] [place] [address], [address] [place] [address] [email or web address] Historical LMR Provider 04/18/17 documented as of this encounter Additional Source Comments The information contained in this document represents components of the legal health record. It is not the complete legal health record.[facility]
--- OUTSIDE RECORDS SUMMARY | 2024-08-23 18:30 | XMS_ITS | Encounter Summary ---
Author Organization [facility] Address [phone] [address] [place] [address] Care Team Providers Care Mash Grinder Name Role Phone Sharmin Culver MD Primary Care Provider Sharmin Culver MD Unavailable Sonya Thomas CNM Unavailable Brit Sainz FINANCIAL AGENT Unavailable [phone] Jourdan Devine DO Unavailable John Steven DPM Unavailable Unavailable Samantha Eisenberg PA-C Unavailable Severiano Reid MD Unavailable [phone] Encounter Details Date Type Department Care Team (Late st Contact Info) Description 10/29/2020 Ancillary Orders [facility],Outside Imaging 30 [place] [address] System, Provider Not In, PhD [address] [address] Social History Tobacco Use Types Packs/Day Years [...] encounter Results * Mammogram Outside (No Interpretation) (11/21/2016 12:00 AM EDT) Narrative SYSTEMGENERATED, DOCUMENTATION - 10/29/2020 12:58 PM EDT This study is for PACS storage only and not for interpretation. Provider Not In System PhD IMG OUTSIDE I MAGING W/OUT INTERPRETATION documented in this encounter Visit Diagnoses Not on filedocumented in this encounter Care Teams Mash Grinder Relationship Specialty Start Date End Date Sharmin Culver MD [address] [place] [address] PCP - General 04/14/17 Sharmin Culver MD 2 [place] [address] Historical LMR Provider 04/18/17 2 Sonya Thomas CNM [address] [place] [address] Historical LMR Provider 04/18/17 Brit Hooks FINANCIAL AGENT [address] [place] [address] [email or web address] Historical LMR Provider 04/18/17 07/06/21 Jourdan Devine DO [address] [place] [address] Orthopedics & Sports Medicine, [facility] [place] [address] Historical LMR Provider 04/18/17 07/06/21 John Steven DPM [address] [place] [address] Historical LMR Provider 04/18/1707/06/21 Samantha Eisenberg PA-C [address] [place] [address] [facility] [place] [address] [email or web address] Historical LMR Provider 04/18/17 07/06/21 Severiano Reid MD [address] [place] [address], [address] [place] [address] [email or web address] Historical LMR Provider 04/18/17 documented as of this encounter Additional Source Comments The information contained in this document represents components of the legal health record. It is not the complete legal health record.[facility]
--- OUTSIDE RECORDS SUMMARY | 2024-08-23 18:30 | XMS_ITS | Encounter Summary ---
Author Organization [facility] Address [phone] [address] [place] [address] Care Team Providers Care Grain Grader Name Role Phone Sahrmin Culver MD Primary Care Provider Sharmin Culver MD Unavailable [phone] Sonya Thomas CNM Unavailable Brit Sainz UNDERGROUND DRILL OPERATOR Unavailable [phone] Jourdan Devine DO Unavailable John Steven DPM Unavailable Unavailable Samantha Eisenberg PA-C Unavailable Severiano Reid MD Unavailable Encounter Details Date Type Department Care Team (Late st Contact Info) Description 09/01/2017 Procedure Pass [facility], [facility] 30 [place] [address] Social History Tobacco Use Types Packs/Day Years Used Date Smoking Tobacco: Former Cigarettes 2 001 - 2002 Smokeless Tobacco: Never Comments:~1 cigarette qd, <1 ppw Alcohol Use Standard Drinks/Week Comments Yes 0 (1 standard drink = 0.6 oz pur e alcohol) Sex and Gender Information Value Date Recorded Sex Assigned at Not on file Gender Identity Not on file Sexual Orientation Not on file documented as of this encounter Plan of Treatment Not on file documented as of this encounter Visit Diagnoses Not on filedocumented in this encounter Care Teams Grain Grader Relationship Specialty Start Date End Date Sharmin Culver MD 2 [place] [address] PCP - General 04/14/17 Sharmin Culver MD 2 [place] [address] Historical LMR Provider 04/18/17 2 Sonya Thomas CNM 30 [place] [address] Historical LMR Provider 04/18/17 2 Brit Sainz NP 30 [place] [address] [email or web address] Historical LMR Provider 04/18/17 07/06/21 Jourdan Devine DO [address] [place] [address] Orthopedics Sports [facility], [place] [address] [email or web address] Historical LMR Provider 04/18/17 07/06/21 John Stveen DPM [address] [place] [address] Historical LMR Provider 04/18/1707/06/21 Samantha Eisenberg PA-C [address] [place] [address] Orthopedics Sports [facility], [place] [address] [email or web address] Historical LMR Provider 04/18/17 07/06/21 Severiano Reid MD [address] [place] [address], [address] [address] Historical LMR Provider 04/18/17 documented as of this encounter Additional Source Comments The information contained in this document represents components of the legal health record. It is not the complete legal health record.[facility]
--- OUTSIDE RECORDS SUMMARY | 2024-08-23 18:30 | XMS_ITS | Clinical Summary ---
Author Organization [facility] Address [phone] [address] [place] [address] Care Team Providers Care Repeater Operator Name Role Phone Sharmin Culver MD Primary Care Provider [phone] Severiano Reid MD Unavailable [phone] Allergies No known active allergies Medications Medication Sig Dispensed Refills Start Date End Date Status ascorbic acid, vitamin C, (VITAMIN C) 500 MG tablet Take 500 mg by mouth daily. Active cholecalciferol (VITAMIN D3) 2,000 unit capsule Take 2,000 Units by mouth daily. Active Active Problems Problem Noted Date Diagnosed Date Fibroids 10/14/2023 Assessment & Plan (10/14/2023 10:38 AM EDT): I think the fibroid is overall stable in size on exam but it makes evaluation of the right adnexal region difficult. Therefore, I have ordered a follow-up pelvic sonogram as it has been 2 years since her last period Complete tear of left rotator cuff 03/22/2018 Plantar fasciitis of left foot 03/22/2018 Tear of left rotator cuff 09/01/2017 Left shoulder pain 06/26/2017 Contusion of left shoulder 06/26/2017 Labral tear of long head of biceps tendon Family History Medical History Relation Comments Heart attack Father Ovarian cancer Maternal Grandmother Diverticulitis Mother Endometrial cancer Mother Endometriosis Mother Relation Status Comments Brother 1 Alive Brother 2 Alive Father Alive Maternal Grandfather Maternal Grandmother Mother Alive Paternal Grandfather Paternal Grandmother Sister 1 Alive Sister 2 Alive Social History Tobacco Use Types Packs/Day Years Used Date Smoking Tobacco: Former Cigarettes 2 - 2002 Smokeless Tobacco: Never Comments:~1 cigarette qd, <1 ppw Alcohol Use Standard Drinks/Week Comments Yes 1 (1 standard drink = 0.6 oz pur e alcohol) monthly Education Answer Date Recorded Are you interested in more education? Not on cindy e 10/24/2022 Are you concerned about learning? Not on file 10/24/2022 No 10/24/2022 No 10/24/2022 Digital Access Answer Date Recorded No 11/22/2022 No 11/22/2022 Reliable internet access at home? Not on file 11/22/2022 Device with a working camera? Not on file Sex and Gender Information Value Date Recorded Sex Assigned at Not on file Gender Identity Not on file Sexual Orientation Not on file Last Filed Vital Signs Vital Sign Reading Time Taken Comments Blood Pressure 138/86 10/14/2023 10:07 AM EDT Pulse 71 06/30/2017 2:56 PM EST Temperature - - Respiratory Rate - - Oxygen Saturation - - Inhaled Oxygen Concentration - - Weight 70.3 kg (155 lb) 10/14/2023 10:07 AM EDT Height 157.5 cm (5' 2 ) 10/14/2023 10:07 AM EDT Body Mass Index 28.35 10/14/2023 10:07 AM EDT Plan of Treatment Health Maintenance Due Date Last Done Comments Adult Td,Tdap Booster 1971 LIPID PANEL 1971 DEPRESSION SCREENING 1983 HEPATITIS B SCREENING 1989 HEPATITIS C SCREENING 1989 HIV ONE-TIME SCREENING (18-65 YEARS) 1989 HEPATITIS B VACCINES (1 of 3 - 19+ 3-dose series) 1990 SCREENING FOR DIABETES 2006 COLOGUARD 2016 COLONOSCOPY 2016 COLORECTAL CANCER SCREENING 2016 FIT TEST 2016 FOBT 2016 SIGMOIDOSCOPY 2016 VIRTUAL COLONOSCOPY 2016 PNEUMOCOCCAL VACCINES (50+ years) (1 of 1 - PCV) 2021 ZOSTER VACCINES (1 of 2) 2021 MAMMOGRAM 08/10/2022 08/10/2020, 07/30, 08/05/2019, Additional history exists PAP SMEAR 09/01/2023 08/31/2020 INFLUENZA VACCINE (#1) 2024 COVID-19 VACCINE ( season) 2024 SMOKING Hx and SMOKELESS TOBACCO SCREENING 10/13/2024 10/14/2023 HEPATITIS A VACCINES Aged Out No long er eligible based on patient's age to complete this topic HIB VACCINES Aged Out No longer eligi ble based on patient's age to complete this topic MENINGOCOCCAL VACCINES (ACWY) Aged Out No longer eligible based on patient's age to complete this topic Medical Devices Not on file Procedures Procedure Name Priority Date/Time Associated Diagnosis Comments PAP TEST Routine 08/31/2020 12:00 AM EST HM MAMMOGRAPHY Routine 08/10/2020 from Last 3 Months or Most Recently Relevant to Health Maintenance Results * Pap Smear (08/31/2020 12:00 AM EST) 08/31/2020 09/03/2020 8:3 7 AM EST Narrative SEE NARRATIVE - 09/07/2020 9:40 [place] [address] Product Marketing Manager: Stephanie Hillman MD ?? SOLE LEVELER MACHINE Cytology Report FINAL DIAGNOSIS A. ??PAP SMEAR (SUREPATH) CE: SPECIMEN ADEQUACY: Satisfactory for evaluation; transformation zone present. INTERPRETATION: NEGATIVE FOR INTRAEPITHELIAL LESION OR MALIGNANCY. Coccobacilli consistent with shift in oneil Electronically Signed Out By: ??SILVIA Shanks(ASCP) The Pap test is a screening test primarily for squamous cancers and precursors and has associated false-negative and false-positive results. ??New technologies such as liquid-based preparations may decrease but will not eliminate all false-negative results. ??Regular sampling and follow-up of unexplained clinical signs and symptoms are recommended to minimize false negative results. PROCEDURES/ADDENDA HPV Testing (Requested) Ordered Date: 09/03/2020 ? A. PAP SMEAR (SUREPATH) CE: ??Human Papilloma Virus Test Negative for high-risk human papillomavirus types 16, 18, 45 and the Other high risk probe set (Includes 31, 33, 35, 39, 51, 52, 56, 58, 59, 66, 68) by App[employer]Log Onclarity HR-HPV analysis. Clinical correlation is advised. This HPV test was performed at [facility], [address] [place] [address]. This test has been FDA approved for SurePath cervical cytology specimens. The accuracy and precision of this test for all other specimen sources has been verified in the Cytopathology Laboratory of the [facility] and has not been cleared or approved by the U.S. Food and Drug Administration. Clinical correlation is advised. ? CLINICAL HISTORY Date of Last Menstrual Period: ??08-13-2020 Other Clinical Conditions: ??Screening Pap SPECIMEN SOURCE A: PAP SMEAR (SUREPATH) CE Patient Name: ??KENDRA MARTINEZ : ??1970 (Age: 50) Sex: ??F Institution: ??[facility] Location: ??[facility] Date of Collection: ??08/31/2020 Date of Reported: ??09/05/2020 13:22 Results to: Severiano Reid MD, BS Severiano Reid MD CYTOLOGY ORDERABLES SEE NARRATIVE * HM MAMMOGRAPHY FOR RESULT ENTRY ONLY (08/10/2020) Historical Provider MD IRON Lucas from Last 3 Months or Most Recently Relevant to Health Maintenance Care Teams Repeater Operator Relationship Specialty Start Date End Date Sharmin Culver MD [address] [place] [address] PCP - General 04/14/17 Severiano Reid MD [address] [address] Historical LMR Provider 04/18/17 Additional Source Comments The information contained in this document represents components of the legal health record. It is not the complete legal health record.[facility]
--- OUTSIDE RECORDS SUMMARY | 2024-08-23 18:30 | XMS_ITS | Encounter Summary ---
Author Organization [facility] Address [phone] [address] [place] [address] Care Team Providers Care Sharepoint Developer Name Role Phone Sharmin Culver MD Primary Care Provider [phone] Sharmin Culver MD Unavailable Sonya Thomas CNM Unavailable Birt Sainz SAW STRAIGHTENER Unavailable [phone] Jourdan Devine DO Unavailable John Steven DPM Unavailable Unavailable Samantha Eisenberg PA-C Unavailable Severiano Reid MD Unavailable [phone] Encounter Details Date Type Department Care Team (Late st Contact Info) Description 10/29/2020 Ancillary Orders [facility],Outside Imaging 30 [place] [address] System, Provider Not In, PhD [address] [address] Social History Tobacco Use Types Packs/Day Years [...] encounter Results * Mammogram Outside (No Interpretation) (08/05/2019 12:00 AM EST) Narrative SYSTEMGENERATED, DOCUMENTATION - 10/29/2020 12:57 PM EDT This study is for PACS storage only and not for interpretation. Provider Not In System PhD IMG OUTSIDE I MAGING W/OUT INTERPRETATION documented in this encounter Visit Diagnoses Not on filedocumented in this encounter Care Teams Sharepoint Developer Relationship Specialty Start Date End Date Sharmin Culver MD 2 [place] [address] PCP - General 04/14/17 Sharmin Culver MD 2 [place] [address] Historical LMR Provider 04/18/17 2 Sonya Thomas CNM [address] [place] [address] Historical LMR Provider 04/18/17 2 Brit Sainz SAW STRAIGHTENER [address] [place] [address] [email or web address] Historical LMR Provider 04/18/17 07/06/21 Jourdan Devine DO [address] [place] [address] Orthopedics & Sports Medicine, [facility] [place] [address] Historical LMR Provider 04/18/17 07/06/21 John Steven DPM [address] [place] [address] Historical LMR Provider 04/18/1707/06/21 Samantha Eisenberg PA-C [address] [place] [address] [facility] [place] [address] [email or web address] Historical LMR Provider 04/18/17 07/06/21 Severiano Reid MD [address] [place] [address], [facility] [address] [place] [address] [email or web address] Historical LMR Provider 04/18/17 documented as of this encounter Additional Source Comments The information contained in this document represents components of the legal health record. It is not the complete legal health record.[facility]
--- OUTSIDE RECORDS SUMMARY | 2024-08-23 18:30 | XMS_ITS | Encounter Summary ---
Author Organization [facility] Address [phone] [address] [place] [address] Care Team Providers Care Elevator Operator Service Name Role Phone Sharmin Culver MD Primary Care Provider Sharmin Culver MD Unavailable Sonya Thomas CNM Unavailable Brit Sainz FREIGHT CAR INSPECTOR Unavailable Jourdan Devine DO Unavailable John Steven DPM Unavailable Unavailable Samantha Eisenberg PA-C Unavailable Severiano Reid MD Unavailable [phone] Encounter Details Date Type Department Care Team (Late st Contact Info) Description 10/29/2020 Ancillary Orders [facility],Outside Imaging [address] [place] [address] System, Provider Not In, PhD [address] [address] Social History Tobacco Use Types Packs/Day Years [...] encounter Results * Mammogram Outside (No Interpretation) (10/08/2015 12:00 AM EDT) Narrative SYSTEMGENERATED, DOCUMENTATION - 10/29/2020 1:01 PM EDT This study is for PACS storage only and not for interpretation. Provider Not In System PhD IMG OUTSIDE I MAGING W/OUT INTERPRETATION documented in this encounter Visit Diagnoses Not on filedocumented in this encounter Care Teams Elevator Operator Service Relationship Specialty Start Date End Date Sharmin Culver MD [address] [place] [address] PCP - General 04/14/17 Sharmin Culver MD [address] [place] [address] Historical LMR Provider 04/18/17 2 Sonya Thomas CNM [address] [place] [address] Historical LMR Provider 04/18/17 Brit Hooks FREIGHT CAR INSPECTOR [address] [place] [address] [email or web address] Historical LMR Provider 04/18/17 07/06/21 Jourdan Devine DO [address] [place] [address] [facility], [facility] [place] [address] Historical LMR Provider 04/18/17 07/06/21 John Steven DPM [address] [place] [address] Historical LMR Provider 04/18/1707/06/21 Samantha Eisenberg PA-C [address] [place] [address] [facility] [place] [address] [email or web address] Historical LMR Provider 04/18/17 07/06/21 Severiano Reid MD [address] [place] [address], [address] [place] [address] [email or web address] Historical LMR Provider 04/18/17 documented as of this encounter Additional Source Comments The information contained in this document represents components of the legal health record. It is not the complete legal health record.[facility]
--- OUTSIDE RECORDS SUMMARY | 2024-08-23 18:30 | XMS_ITS | Encounter Summary ---
Author Organization [facility] Address [phone] [place] [address] Care Team Providers Care Campus Administrative Assistant Name Role Phone Sharmin Culver MD Primary Care Provider [phone] Sharmin Culver MD Unavailable Sonya Thomas CNM Unavailable Brit Sainz BOAT TESTER Unavailable [phone] Jourdan Devine DO Unavailable [phone] John Steven DPM Unavailable Unavailable Samantha Eisenberg PA-C Unavailable Severiano Reid MD Unavailable Encounter Details Date Type Department Care Team (Late st Contact Info) Description 10/29/2020 Ancillary Orders [facility],Outside Imaging [address] [place] [address] System, Provider Not In, PhD [address] [address] Social History Tobacco Use Types Packs/Day Years [...] encounter Results * Mammogram Outside (No Interpretation) (08/10/2020 12:00 AM EST) Narrative SYSTEMGENERATED, DOCUMENTATION - 10/29/2020 12:54 PM EDT This study is for PACS storage only and not for interpretation. Provider Not In System PhD IMG OUTSIDE I MAGING W/OUT INTERPRETATION documented in this encounter Visit Diagnoses Not on filedocumented in this encounter Care Teams Campus Administrative Assistant Relationship Specialty Start Date End Date Sharmin Culver MD [address] [place] [address] PCP - General 04/14/17 Sharmin Culver MD [address] [place] [address] Historical LMR Provider 04/18/17 2 Sonya Thomas CNM [address] [place] [address] Historical LMR Provider 04/18/17 Brit Hooks BOAT TESTER [address] [place] [address] [email or web address] Historical LMR Provider 04/18/17 07/06/21 Jourdan Devine DO [address] [place] [address] [facility] [place] [address] Historical LMR Provider 04/18/17 07/06/21 John Steven DPM [address] [place] [address] Historical LMR Provider 04/18/1707/06/21 Samantha Eisenberg PA-C [address] [place] [address] [facility] [place] [address] [email or web address] Historical LMR Provider 04/18/17 07/06/21 Severiano Reid MD [address] [place] [address], [address] [place] [address] [email or web address] Historical LMR Provider 04/18/17 documented as of this encounter Additional Source Comments The information contained in this document represents components of the legal health record. It is not the complete legal health record.[facility]
== END 2024-08-23 16:05 | disposition home or self-care (01) ==
PROVIDERS: PCP Internal Medicine
DX: M79.89 Other specified soft tissue disorders (principal)

== ENCOUNTER → 2024-08-23 14:46 | Outpatient (BNVA) | payer BC, SELFPAY | PROVIDERS: PCP Internal Medicine ==

== ENCOUNTER 2024-08-24 06:25 | Outpatient (REF) | payer BC, SELFPAY ==
[2024-08-24 07:29] LABS: Estimated Average Glucose 100 mg/dL; Hemoglobin A1C 123.4312 umol/L; Hemoglobin A1c % 5.1 % (<6.0); Total Hemoglobin (HGBA1C) 3839.1845 umol/L
[2024-08-24 07:58] LABS: B Type Natriuretic Peptide 13 pg/mL (<100)
[2024-08-24 08:04] LABS: Alanine Aminotransferase 14 U/L (0-31); Albumin Level 4.2 g/dL (3.5-5.0); Alkaline Phosphatase 65 U/L (39-117); Anion Gap 13 (12-20); Aspartate Amino Transferase 19 U/L (5-31); Bilirubin Direct 0.2 mg/dL (0.0-0.5); Bilirubin Total 0.7 mg/dL (0.0-1.0); Blood Urea Nitrogen 16 mg/dL (9-16); Calcium 9.5 mg/dL (8.4-10.2); Carbon Dioxide 25 mmol/L (22-29); Chloride 106 mmol/L (96-108); Estimated Glomerular Filt Rate > 60; Glucose Random 96 mg/dL (60-115); Potassium 4.3 mmol/L (3.3-5.1); Sodium 140 mmol/L (135-145); Total Protein 7.6 g/dL (6.5-8.0)
[2024-08-24 08:20] LABS: Free T4 (Free Thyroxine) 0.82 ng/dL (0.71-1.85); Thyroid Stimulating Hormone 2.62 uIU/mL (0.32-4.0)
== END 2024-08-24 06:26 | disposition home or self-care (01) ==
LOC: HO.LAB 06:25
PROVIDERS: PCP Internal Medicine; Visit Provider Internal Medicine
DX: R79.89 Other specified abnormal findings of blood chemistry (principal); E78.00 Pure hypercholesterolemia, unspecified; R73.01 Impaired fasting glucose; M79.89 Other specified soft tissue disorders
CPT/HCPCS: 36415; 80053; 82248; 83036; 83880; 84439; 84443

== ENCOUNTER 2024-09-02 08:22 | Outpatient (AMB) | payer BC, SELFPAY ==
[2024-09-02 08:28] VITALS: BP 146/78; PULSE 72; O2SAT 97; BMI 31.1
--- NOTE | 2024-09-02 08:28 | A.OFFPC_ITS ---
Vital Signs 09/02/24 08:28 09/02/24 09:10 Height 5 ft 2 in Weight 170 lb BMI 31.1 BP 146/78 H 126/80 Blood Pressure Location Lt brachial Lt brachial Position Sitting Sitting Pulse 72 Pulse Source Pulse Oximeter Pulse Oximetry (%) 97 Oxygen Delivery Method Room Air Intake Visit Reasons: f/u HTN, ILD, HLD w/ Dr. Culver Allergies amlodipine Adverse Reaction (Intermediate, Unverified 09/02/24 08:54) leg swelling simvastatin Adverse Reaction (Intermediate, Verified 09/02/24 08:29) myalgia Tobacco use date assessed: 08/23/24 Dental Screening Dental Screen Date: 08/23/24 [facility] Medical History (Updated 09/02/24 @ 08:55 by Sharmin Culver MD) Obesity (BMI 30.0-34.9) Chest pain Foot pain, left Finger pain, left Colonoscopy refused Colon cancer screening Periodic limb movement disorder Hypercholesterolemia Surgical History History of arthroscopy of left shoulder Family History Father Myocardial infarction Mother Cervical cancer Hypertension Hyperlipidemia CAD (coronary artery disease) Uterine cancer Maternal Grandmother Ovarian cancer Maternal Grandfather Myocardial infarction Brother No problems noted. Brother No problems noted. Sister No problems noted. Sister No problems noted. Son No problems noted. Social History Housing: House Alcohol intake: current Alcohol intake frequency: holidays/special occasions only Alcohol type: wine Comment: once a month 1-2 glasses of wine Patient Tobacco Use Status: Former Tobacco user Tobacco use type: Cigarette Years Smoked: 1999 Quit e-Cigarette/Vaping Use: Never Used Second Hand Smoke Exposure: Yes service: No Current occupational status: employed Cognitive needs: No Hearing needs: No Vision needs: Yes Questionnaire PHQ-9 Over the last 2 weeks, how often have you been bothered by any of the following problems? 1. Little interest or pleasure in doing things: not at all 2. Feeling down, depressed, or hopeless: not at all 3. Trouble falling or staying asleep, or sleeping too much: not at all 4. Feeling tired or having little energy: not at all 5. Poor appetite or overeating: not at all 6. Feeling bad about yourself - or that you are a failure or have let yourself or your family down: not at all 7. Trouble concentrating on things, such as reading the newspaper or watching television: not at all 8. Moving or speaking so slowly that other people could have noticed. Or the opposite - being so fidgety or restless that you have been moving around a lot more than usual: not at all 9. Thoughts that you would be better off or of hurting yourself in some way: not at all Total score: 0 Depression Screening Interpretation: Negative Depression Screening Done: Yes Source: Developed by Drs. Jim Hernandez, Nikia Bowman, Jesus Sainz and colleagues, with an educational terrie from [employer]. Thrive Questionnaire Date Thrive assessed: 08/23/24 AUDIT C Alcohol Use Questionnaire (AUDIT-C) 1. How often do you have a drink containing alcohol?: Monthly or less 2. How many drinks containing alcohol do you have on a typical day when you are drinking?: 1 or 2 Total Score: 1 CEDRIC-7 AMB Questionnaire CEDRIC-7 Date CEDRIC - 7 assessed: 08/23/24 Source: Developed by Drs. Jim Hernandez, Nikia Bowman, Jesus Sainz and colleagues, with an educational terrie from [employer]. Physical exam (Primary Care) Vital Signs: Last Vital Signs Pulse 72 09/02/24 08:28 BP 146/78 H 09/02/24 08:28 Pulse Ox 97 09/02/24 08:28 Oxygen Delivery Method Room Air 09/02/24 08:28 BMI result Body Mass Index 31.1 Tobacco/Smoking Status: Tobacco use Status Tobacco use date assessed 08/23/24 09/02/24 08:35 Patient Tobacco Use Status Former Tobacco user 09/02/24 08:35 Tobacco use type Cigarette 09/02/24 08:35 e-Cigarette/Vaping Use Never Used 09/02/24 08:35 PHQ-9: PHQ-9 Score PHQ-9: Total score 0 09/02/24 08:35 Depression Screening Interpretation: Negative Thrive Assessment: Date of Thrive Assessment Date Thrive assessed 08/23/24 09/02/24 08:35 Const General: alert; No acute distress Eyes Conjunctivae: conjunctivae normal Resp Auscultation: clear to auscultation bilaterally Cardio Rate: regular rate Rhythm: regular rhythm GI Inspection: Yes normal to inspection Extrem General: Yes normal to inspection and No edema Coding Level of Care Code Est Pt Level 4 (20221) Diagnoses Leg swelling M79.89 Hypercholesterolemia E78.00 Impaired fasting blood sugar R73.01 Hypertension I10 Assessment & Plan Assessment & Plan (1) Leg swelling: Code(s): M79.89 - Other specified soft tissue disorders Category: Medical Plan: Amlodipine prescription held. (2) Hypercholesterolemia: Code(s): E78.00 - Pure hypercholesterolemia, unspecified Category: Medical Plan: Avoid fried foods, chicken skin, eggs, butter margarine, pastries and meat. Be it pork or beef they have a lot of cholesterol LDL goal of less than 130 and triglyceride of less than 150 (3) Impaired fasting blood sugar: Code(s): R73.01 - Impaired fasting glucose Category: Medical Plan: Decrease the amount of carbohydrate intake, pasta, bread, rice and potatoes are all sugar and that is aside from all the sweet stuff, remember that fruits are good but they are Sweet also. (4) Hypertension: Code(s): I10 - Essential (primary) hypertension Category: Medical Plan: Presently amlodipine and on hold due to leg swelling. Patient is present blood pressure is good without the blood pressure medication. Continue to monitor presently the blood pressure. Advised to bring in the machine for blood pressure. Plan History of Present Illness The patient is a 54-year-old female presenting with a substantial history of obesity, hypercholesterolemia, gastroesophageal reflux disease (GERD), essential hypertension, and recent swelling in the lower extremities. Her LDL cholesterol was noted at 126 mg/dL in January, with the associated concern of triglycerides being heightened presently. The patient has a lawful non-compliance with prescribed statins. Hypertension management has been challenging due to an adverse reaction to Norvasc, resulting in swelling, confirmed not to be due to cardiac, renal, or hepatic etiology through diagnostic testing and blood work. She is monitored by a repair table operator with cardiopulmonary testing affirming no ischemia or dysfunction Health Maintenance - Regular mammograms are up-to-date, with the next one due this month. - Colonoscopy with Cologuard screening last performed in September 2021; future evaluation discussed. - Weight management and cardiovascular risk reduction strategies, although specific interventions were not discussed during this visit. - Ongoing use of CPAP machine for sleep apnea management. Social History - The patient experiences a high level of physical activity restrictions due to her weight and associated comorbidities. - Ongoing obesity management; specific dietary or exercise regimen not detailed. - Patient expresses concerns about medication side effects, contributing to compliance issues with some treatments. Review of Systems Physical Exam Results - Labs: Normal blood count, normal electrolytes, normal renal function, normal liver function tests, fasting blood glucose 96 mg/dL, LDL 126 mg/dL, TSH 2.62 mIU/L. - Tests: Cardiopulmonary stress test - no ischemia or exercise-induced diastolic dysfunction, BNP - negative. - Imaging: Chest X-ray - negative for abnormalities. Plan Hypertension management is currently on hold for Norvasc, the patient will continue monitoring blood pressure at home. Lipid control is under evaluation, with new cholesterol tests planned to guide potential treatment approaches. Patient was informed and verbally consented to the use of an ambient scribe for clinic note documentation during this visit. Discussion Notes I discussed with the patient the need to continue monitoring her blood pressure regularly, especially with the medication hold on Norvasc due to prior swelling, and the necessity to bring her blood pressure monitor to the next appointment to confirm its accuracy. I emphasized maintaining aggressive weight control and increased awareness of dietary intake to aid in managing her hypercholesterolemia, mentioning an LDL goal along with triglycerides control. We will reconvene after receiving new blood test results to determine further treatment avenues for her lipid profile. Patient Instructions Orders: Orders Vitamin B12 and Folate Today R73.01 - Impaired fasting glucose Complete Blood Count Auto Diff Today R73.01 - Impaired fasting glucose Lipid Panel Today E78.00 - Pure hypercholesterolemia, unspecified, R73.01 - Impaired fasting glucose Vitamin D 25-OH Total Today R73.01 - Impaired fasting glucose Medications: Discontinued amlodipine Discontinued Reason: Doctor's Order 10 mg PO DAILY 30 tabs 2RF
--- OUTSIDE RECORDS SUMMARY | 2024-09-02 08:49 | XMS_ITS | Encounter Summary ---
Author Organization [facility] Address [address] [place] [address] Phone Care Team Providers Care Reinforcing Iron Worker Helper Name Role Phone Sharmin Culver MD Primary Care Provider Sharmin Culver MD Unavailable Sonya Thomas CNM Unavailable Brit Sainz COLLECTOR OF INTERNAL REVENUE Unavailable [phone] Jourdan Devine DO Unavailable John Steven DPM Unavailable Unavailable Samantha Eisenberg PA-C Unavailable Severiano Reid MD Unavailable [phone] Encounter Details Date Type Department Care Team (Late st Contact Info) Description 10/29/2020 Ancillary Orders [facility],Outside Imaging [address] [place] [address] System, Provider Not In, PhD Partners [address] [address] Social History Tobacco Use Types Packs/Day Years [...] on filedocumented in this encounter Care Teams Reinforcing Iron Worker Helper Relationship Specialty Start Date End Date Sharmin Culver MD [address] [place] [address] PCP - General 04/14/17 Sharmin Culver MD [address] [place] [address] Historical LMR Provider 04/18/17 2 Sonya Thomas CNM [address] [place] [address] Historical LMR Provider 04/18/17 Brit Hooks, KOKI [address] [place] [address] Historical LMR Provider 04/18/17 07/06/21 Jourdan Devine DO [address] [place] [address] [facility], [place] [address] Historical LMR Provider 04/18/17 07/06/21 John Steven DPM [address] [place] [address] Historical LMR Provider 04/18/1707/06/21 Samantah Eisenberg PA-C [address] [place] [address] Orthopedics [facility], [facility] [place] [address] [email or web address] Historical LMR Provider 04/18/17 07/06/21 Severiano Reid MD [address] [place] [address] [address] [place] [address] [email or web address] Historical LMR Provider 04/18/17 documented as of this encounter Additional Source Comments The information contained in this document represents components of the legal health record. It is not the complete legal health record.[facility]
--- OUTSIDE RECORDS SUMMARY | 2024-09-02 08:50 | XMS_ITS | Encounter Summary ---
Author Organization [facility] Address [address] [place] [address] Phone Care Team Providers Care Needle Punch Machine Operator Helper Name Role Phone Sharmin Culver MD Primary Care Provider [phone] Sharmin Culver MD Unavailable Sonya Thomas CNM Unavailable Brit Sainz CRABBING MACHINE OPERATOR Unavailable [phone] Jourdan Devine DO Unavailable John Steven DPM Unavailable Unavailable Samantha Eisenberg PA-C Unavailable Severiano Reid MD Unavailable Encounter Details Date Type Department Care Team (Late st Contact Info) Description 10/29/2020 Ancillary Orders [facility],Outside Imaging [address] [place] [address] System, Provider Not In, PhD Partners [address] [address] Social History Tobacco Use Types Packs/Day Years [...] on filedocumented in this encounter Care Teams Needle Punch Machine Operator Helper Relationship Specialty Start Date End Date Sharmin Culver MD [address] [place] [address] PCP - General 04/14/17 Sharmin Culver MD [address] [place] [address] Historical LMR Provider 04/18/17 2 Sonya Thomas CNM [address] [place] [address] Historical LMR Provider 04/18/17 Brit Hooks, KOKI [address] [place] [address] Historical LMR Provider 04/18/17 07/06/21 Jourdan Devine DO [address] [place] [address] Orthopedics [facility] Sports Medicine, [place] [address] Historical LMR Provider 04/18/17 07/06/21 John Steven DPM [address] [place] [address] Historical LMR Provider 04/18/1707/06/21 Samantha Eisenberg PA-C [address] [place] [address] Orthopedics [facility] Medicine, [facility] [place] [address] [email or web address] Historical LMR Provider 04/18/17 07/06/21 Severiano Reid MD [address] [place] [address] [address] [place] [address] [email or web address] Historical LMR Provider 04/18/17 documented as of this encounter Additional Source Comments The information contained in this document represents components of the legal health record. It is not the complete legal health record.[facility]
--- OUTSIDE RECORDS SUMMARY | 2024-09-02 08:50 | XMS_ITS | Encounter Summary ---
Author Organization [facility] Address [address] [place] [address] Phone Care Team Providers Care Appraisal Analyst Name Role Phone Sharmin Culver MD Primary Care Provider Sharmin Culver MD Unavailable [phone] Sonya Thomas CNM Unavailable Brit Sainz CLERICAL RECEPTIONIST Unavailable [phone] Jourdan Devine DO Unavailable [phone] John Steven DPM Unavailable Unavailable Samantha Eisenberg PA-C Unavailable Severiano Reid MD Unavailable [phone] Encounter Details Date Type Department Care Team (Late st Contact Info) Description 10/29/2020 Ancillary Orders [facility],Outside Imaging [address] [place] [address] System, Provider Not In, PhD Partners [address] [address] Social History Tobacco Use Types Packs/Day Years [...] on filedocumented in this encounter Care Teams Appraisal Analyst Relationship Specialty Start Date End Date Sharmin Culver MD [address] [place] [address] PCP - General 04/14/17 Sharmin Culver MD [address] [place] [address] Historical LMR Provider 04/18/17 2 Sonya Thomas CNM [address] [place] [address] Historical LMR Provider 04/18/17 Brit Hooks, KOKI [address] [place] [address] Historical LMR Provider 04/18/17 07/06/21 Jourdan Devine DO [address] [place] [address] Orth[facility] Sports Medicine, [place] [address] Historical LMR Provider 04/18/17 07/06/21 John Steven DPM [address] [place] [address] Historical LMR Provider 04/18/1707/06/21 Samantha Eisenberg PA-C [address] [place] [address] [facility], [facility] [place] [address] [email or web address] Historical LMR Provider 04/18/17 07/06/21 Severiano Reid MD [address] [place] [address] [address] [place] [address] [email or web address] Historical LMR Provider 04/18/17 documented as of this encounter Additional Source Comments The information contained in this document represents components of the legal health record. It is not the complete legal health record.[facility]
--- OUTSIDE RECORDS SUMMARY | 2024-09-02 08:50 | XMS_ITS | Encounter Summary ---
Author Organization [facility] Address [address] [place] [address] Phone Care Team Providers Care Contract Modeler Name Role Phone Sharmin Culver MD Primary Care Provider Sharmin Culver MD Unavailable Sonya Thomas CNM Unavailable Brit Sainz DANCE ENTERTAINER Unavailable [phone] Jourdan Devine DO Unavailable [phone] John Steven DPM Unavailable Unavailable Samantha Eisenberg PA-C Unavailable Severiano Reid MD Unavailable Encounter Details Date Type Department Care Team (Late st Contact Info) Description 10/29/2020 Ancillary Orders [facility],Outside Imaging [address] [place] [address] System, Provider Not In, PhD Partners [address] [address] Social History Tobacco Use Types Packs/Day Years [...] on filedocumented in this encounter Care Teams Contract Modeler Relationship Specialty Start Date End Date Sharmin Culver MD [address] [place] [address] PCP - General 04/14/17 Sharmin Culver MD [address] [place] [address] Historical LMR Provider 04/18/17 2 Sonya Thoams CNM [address] [place] [address] Historical LMR Provider 04/18/17 Brit Hooks, KOKI [address] [place] [address] Historical LMR Provider 04/18/17 07/06/21 Jourdan Devine DO [address] [place] [address] [facility] Sports Medicine, [place] [address] Historical LMR Provider 04/18/17 07/06/21 John Steven DPM [address] [place] [address] Historical LMR Provider 04/18/1707/06/21 Samantha Eisenberg PA-C [address] [place] [address] Orth[facility], [place] [address] [email or web address] Historical LMR Provider 04/18/17 07/06/21 Severiano Reid MD [address] [place] [address] [address] [place] [address] [email or web address] Historical LMR Provider 04/18/17 documented as of this encounter Additional Source Comments The information contained in this document represents components of the legal health record. It is not the complete legal health record.[facility]
--- OUTSIDE RECORDS SUMMARY | 2024-09-02 08:50 | XMS_ITS | Encounter Summary ---
Author Organization [facility] Address [address] [place] [address] Phone Care Team Providers Care Assistant Sales Manager Name Role Phone Sharmin Culver MD Primary Care Provider [phone] Sharmin Culver MD Unavailable [phone] Sonya Thomas CNM Unavailable Brit Sainz INFORMATICS SCIENTIST Unavailable [phone] Jourdan Devine DO Unavailable John Steven DPM Unavailable Unavailable Samantha Eisenberg PA-C Unavailable Severiano Reid MD Unavailable Encounter Details Date Type Department Care Team (Late st Contact Info) Description 10/29/2020 Ancillary Orders [facility],Outside Imaging 30 [place] [address] System, Provider Not In, PhD Partners [address] [address] Social History Tobacco Use Types Packs/Day Years [...] filedocumented in this encounter Care Teams Assistant Sales Manager Relationship Specialty Start Date End Date Sharmin Culver MD [address] [place] [address] PCP - General 04/14/17 Sharmin Culver MD [address] [place] [address] Historical LMR Provider 04/18/17 2 Sonya Thomas CNM [address] [place] [address] Historical LMR Provider 04/18/17 Brit Hooks, KOKI [address] [place] [address] Historical LMR Provider 04/18/17 07/06/21 Jourdan Devine DO [address] [place] [address] [facility], [place] [address] Historical LMR Provider 04/18/17 07/06/21 John Steven DPM [address] [place] [address] Historical LMR Provider 04/18/1707/06/21 Samantha Eisenberg PA-C [address] [place] [address] Orthopedics & Sports Medicine, [place] [address] [email or web address] Historical LMR Provider 04/18/17 07/06/21 Severiano Reid MD [address] [place] [address] 102 [place] [address] [email or web address] Historical LMR Provider 04/18/17 documented as of this encounter Additional Source Comments The information contained in this document represents components of the legal health record. It is not the complete legal health record.[facility]
--- OUTSIDE RECORDS SUMMARY | 2024-09-02 08:50 | XMS_ITS | Encounter Summary ---
Author Organization [facility] Address [address] [place] [address] Phone Care Team Providers Care Benefits Consultant Name Role Phone Sharmin Culver MD Primary Care Provider Sharmin Culver MD Unavailable Sonya Thomas CNM Unavailable Brit Sainz PATHOLOGY TEACHER Unavailable [phone] Jourdan Devine DO Unavailable John Steven DPM Unavailable Unavailable Samantha Eisenberg PA-C Unavailable Severiano Reid MD Unavailable [phone] Encounter Details Date Type Department Care Team (Late st Contact Info) Description 10/29/2020 Ancillary Orders [facility],Outside Imaging 30 [place] [address] System, Provider Not In, PhD Partners [address] [address] Social History Tobacco Use Types Packs/Day Years [...] on filedocumented in this encounter Care Teams Benefits Consultant Relationship Specialty Start Date End Date Sharmin Culver MD [address] [place] [address] PCP - General 04/14/17 Sharmin Cluver MD [address] [place] [address] Historical LMR Provider 04/18/17 2 Sonya Thomas CNM [address] [place] [address] Historical LMR Provider 04/18/17 Brit Hooks, KOKI [address] [place] [address] Historical LMR Provider 04/18/17 07/06/21 Jourdan Devine DO [address] [place] [address] Orthopedics & Sports Medicine, [place] [address] Historical LMR Provider 04/18/17 07/06/21 John Steven DPM [address] [place] [address] Historical LMR Provider 04/18/1707/06/21 Samantha Eisenberg PA-C [address] [place] [address] Orthopedics & Sports Medicine, [facility] [place] [address] [email or web address] Historical LMR Provider 04/18/17 07/06/21 Severiano Reid MD [address] [place] [address] 102 [place] [address] [email or web address] Historical LMR Provider 04/18/17 documented as of this encounter Additional Source Comments The information contained in this document represents components of the legal health record. It is not the complete legal health record.[facility]
--- OUTSIDE RECORDS SUMMARY | 2024-09-02 08:50 | XMS_ITS | Clinical Summary ---
Author Organization [facility] Address [address] [place] [address] Phone Care Team Providers Care Linux Unix Engineer Name Role Phone Sharmin Culver MD Primary Care Provider [phone] Severiano Reid MD Unavailable [phone] Allergies No known active allergies Medications [...] LIPID PANEL 1971 DEPRESSION SCREENING 1983 HEPATITIS C SCREENING 1989 HIV ONE-TIME SCREENING (18-65 YEARS) 1989 SCREENING FOR DIABETES 2006 COLOGUARD 2016 COLONOSCOPY [...] SEE NARRATIVE - 09/07/2020 9:40 [place] [address] Motion Picture Equipment Supervisor: Stephanie Hillman MD ?? DESIZING MACHINE BACK TENDER Cytology Report FINAL DIAGNOSIS A. ??PAP SMEAR [...] 52, 56, 58, 59, 66, 68) by seedtag Onclarity HR-HPV analysis. Clinical correlation is advised. This HPV test was performed at [facility], [address] [place] [address]. This test has been FDA approved for SurePath cervical cytology specimens. The accuracy and precision of this test for all other specimen sources has been verified in the Cytopathology Laboratory of the [facility] and has not been cleared or approved by the U.S. Food and Drug Administration. Clinical correlation is advised. ? CLINICAL HISTORY Date of Last Menstrual Period: ??08-13-2020 Other Clinical Conditions: ??Screening Pap SPECIMEN SOURCE A: PAP SMEAR (SUREPATH) CE Patient Name: ??KENDRA MARTINEZ : ??1970 (Age: 50) Sex: ??F Institution: ??[facility] Location: ??[facility] Date of Collection: ??08/31/2020 Date of Reported: ??09/05/2020 13:22 Results to: Severiano Reid MD, BS Severiano Reid MD CYTOLOGY ORDERABLES SEE NARRATIVE * HM MAMMOGRAPHY FOR RESULT ENTRY ONLY (08/10/2020) Historical Provider MD IRON Lucas from Last 3 Months or Most Recently Relevant to Health Maintenance Care Teams Linux Unix Engineer Relationship Specialty Start Date End Date Sharmin Culver MD [address] [place] [address] PCP - General 04/14/17 Severiano Reid MD 22 [facility], [facility] 102 [place] [address] [email or web address] Historical LMR Provider 04/18/17 Additional Source Comments The information contained in this document represents components of the legal health record. It is not the complete legal health record.[facility]
--- OUTSIDE RECORDS SUMMARY | 2024-09-02 08:50 | XMS_ITS | Encounter Summary ---
Author Organization [facility] Address [address] [place] [address] Phone Care Team Providers Care Braille Translator Name Role Phone Sharmin Culver MD Primary Care Provider Sharmin Culver MD Unavailable [phone] Sonya Thomas CNM Unavailable Brit Sainz GAS TESTER Unavailable [phone] Jourdan Devine DO Unavailable John Steven DPM Unavailable Unavailable Samantha Eisenberg PA-C Unavailable Severiano Reid MD Unavailable Encounter Details Date Type Department Care Team (Late st Contact Info) Description 10/29/2020 Ancillary Orders [facility],Outside Imaging 30 [place] [address] System, Provider Not In, PhD Partners [address] [address] Social History Tobacco Use Types Packs/Day Years [...] on filedocumented in this encounter Care Teams Braille Translator Relationship Specialty Start Date End Date Sharmin Culver MD [address] [place] [address] PCP - General 04/14/17 Sharmin Culver MD [address] [place] [address] Historical LMR Provider 04/18/17 2 Sonya Thomas CNM [address] [place] [address] Historical LMR Provider 04/18/17 Brit Hooks, KOKI [address] [place] [address] Historical LMR Provider 04/18/17 07/06/21 Jourdan Devine DO [address] [place] [address] Orthoped[facility] Sports Medicine, [place] [address] Historical LMR Provider 04/18/17 07/06/21 John Steven DPM [address] [place] [address] Historical LMR Provider 04/18/1707/06/21 Samantha Eisenberg PA-C [address] [place] [address] Orthopedics & Sports Medicine, [facility] [place] [address] [email or web address] Historical LMR Provider 04/18/17 07/06/21 Severiano Reid MD [address] [place] [address] 102 [place] [address] [email or web address] Historical LMR Provider 04/18/17 documented as of this encounter Additional Source Comments The information contained in this document represents components of the legal health record. It is not the complete legal health record.[facility]
--- OUTSIDE RECORDS SUMMARY | 2024-09-02 08:50 | XMS_ITS | Encounter Summary ---
Author Organization [facility] Address [address] [facility] ([place], [place]) [address] [place] [address] Phone Care Team Providers Care Academic Services Professional Name Role Phone Sharmin Culver MD Primary Care Provider [phone] Sharmin Culver MD Unavailable Sonya Thomas CNM Unavailable Brit Sainz PREPARATOR Unavailable [phone] Jourdan Devine DO Unavailable [phone] John Steven DPM Unavailable Unavailable Samantha Eisenberg PA-C Unavailable Severiano Reid MD Unavailable Encounter Details Date Type Department Care Team (Late st Contact Info) Description 09/01/2017 Procedure Pass [facility], [address] [address] Social History Tobacco Use Types Packs/Day Years [...] on filedocumented in this encounter Care Teams Academic Services Professional Relationship Specialty Start Date End Date Sharmin Culver MD 2 [place] [address] PCP - General 04/14/17 Sharmin Culver MD 2 [place] [address] Historical LMR Provider 04/18/17 2 Sonya Thomas CNM [address] [place] [address] Historical LMR Provider 04/18/17 2 Brit Sainz NP [address] [place] [address] [email or web address] Historical LMR Provider 04/18/17 07/06/21 Jourdan Devine DO [address] [place] [address] Orthopedics & Sports [facility], [place] [address] [email or web address] Historical LMR Provider 04/18/17 07/06/21 John Steven DPM [address] [place] [address] Historical LMR Provider 04/18/1707/06/21 Samantha Eisenberg PA-C [address] [place] [address] Orthopedics Sports [facility], [place] [address] [email or web address] Historical LMR Provider 04/18/17 07/06/21 Severiano Reid MD [address] [place] [address], [address] [address] Historical LMR Provider 04/18/17 documented as of this encounter Additional Source Comments The information contained in this document represents components of the legal health record. It is not the complete legal health record.[facility]
[2024-09-02 09:10] VITALS: BP 126/80
== END 2024-09-02 09:41 | disposition home or self-care (01) ==
PROVIDERS: PCP Internal Medicine; Visit Provider Internal Medicine
DX: M79.89 Other specified soft tissue disorders (principal); E78.00 Pure hypercholesterolemia, unspecified; R73.01 Impaired fasting glucose; I10 Essential (primary) hypertension

== ENCOUNTER → 2024-09-02 08:22 | Outpatient (BNVA) | payer BC, SELFPAY | PROVIDERS: PCP Internal Medicine; Visit Provider Internal Medicine ==

== ENCOUNTER → 2024-09-07 09:06 | Outpatient (BNVA) | payer BC, SELFPAY | PROVIDERS: PCP Internal Medicine; Visit Provider Internal Medicine ==

== ENCOUNTER 2024-10-03 11:23 | Outpatient (REF) | payer BC, SELFPAY ==
--- OUTSIDE RECORDS SUMMARY | 2024-10-03 13:43 | XMS_ITS | Encounter Summary ---
Author Organization [facility] Address [address] [place] [address] Phone Care Team Providers Care Inclinometer Tester Name Role Phone Sharmin Culver MD Primary Care Provider Sharmin Culver MD Unavailable Sonya Thomas CNM Unavailable Brit Sainz TRAINING CONSULTANT Unavailable [phone] Jourdan Devine DO Unavailable [phone] John Steven DPM Unavailable Unavailable Samantha Eisenberg PA-C Unavailable Severiano Reid MD Unavailable Encounter Details Date Type Department Care Team (Late st Contact Info) Description 10/29/2020 Ancillary Orders [facility],Outside Imaging 30 [place] [address] System, Provider Not In, PhD Partners [address] [address] Social History Tobacco Use Types Packs/Day Years [...] on filedocumented in this encounter Care Teams Inclinometer Tester Relationship Specialty Start Date End Date Sharmin Culver MD [address] [place] [address] PCP - General 04/14/17 Sharmin Culver MD [address] [place] [address] Historical LMR Provider 04/18/17 2 Sonya Thomas CNM [address] [place] [address] Historical LMR Provider 04/18/17 Brit Hooks, KOKI [address] [place] [address] Historical LMR Provider 04/18/17 07/06/21 Jourdan Devine DO [address] [place] [address] Orthopedics & [place], [place] [address] Historical LMR Provider 04/18/17 07/06/21 John Steven DPM [address] [place] [address] Historical LMR Provider 04/18/1707/06/21 Samantha Eisenberg PA-C [address] [place] [address] Orthopedics & Sports Medicine, [facility] [address] [email or web address] Historical LMR Provider 04/18/17 07/06/21 Severiano Redi MD [address] [place] [address] 102 [place] [address] [email or web address] Historical LMR Provider 04/18/17 documented as of this encounter Additional Source Comments The information contained in this document represents components of the legal health record. It is not the complete legal health record.[facility]
--- OUTSIDE RECORDS SUMMARY | 2024-10-03 13:43 | XMS_ITS | Encounter Summary ---
Author Organization [facility] Address [address] [place] [address] Phone Care Team Providers Care Chief Dietitian Name Role Phone Sharmin Culver MD Primary Care Provider [phone] Sharmin Culver MD Unavailable Sonya Thomas CNM Unavailable Brit Sainz EXTRUSION PRESS SUPERVISOR Unavailable [phone] Jourdan Devine DO Unavailable [phone] John Steven DPM Unavailable Unavailable Samantha Eisenberg PA-C Unavailable Severiano Reid MD Unavailable [phone] Encounter Details Date Type Department Care Team (Late st Contact Info) Description 10/29/2020 Ancillary Orders [facility],Outside Imaging 30 [place] [address] System, Provider Not In, PhD Partners [address] [address] Social History Tobacco Use Types Packs/Day Years [...] on filedocumented in this encounter Care Teams Chief Dietitian Relationship Specialty Start Date End Date Sharmin Culver MD [address] [place] [address] PCP - General 04/14/17 Sharmin Culver MD [address] [place] [address] Historical LMR Provider 04/18/17 2 Sonya Thomas CNM [address] [place] [address] Historical LMR Provider 04/18/17 Brit Hooks, KOKI [address] [place] [address] Historical LMR Provider 04/18/17 07/06/21 Jourdan Devine DO [address] [place] [address] Orthopedics & Sports Medicine, [place] [address] Historical LMR Provider 04/18/17 07/06/21 John Steven DPM [address] [place] [address] Historical LMR Provider 04/18/1707/06/21 Samantha Eisenberg PA-C [address] [place] [address] Orthopedics & Sports Medicine, [facility] [place] [address] [email or web address] Historical LMR Provider 04/18/17 07/06/21 Severiano Reid MD [address] [place] [address] 102 [place] [address] [email or web address] Historical LMR Provider 04/18/17 documented as of this encounter Additional Source Comments The information contained in this document represents components of the legal health record. It is not the complete legal health record.[facility]
--- OUTSIDE RECORDS SUMMARY | 2024-10-03 13:43 | XMS_ITS | Encounter Summary ---
Author Organization [facility] Address [address] [place] [address] Phone Care Team Providers Care Monitoring Specialist Name Role Phone Sharmin Culver MD Primary Care Provider Sharmin Culver MD Unavailable Sonya Thomas CNM Unavailable Brit Sainz HEDDLE MACHINE OPERATOR Unavailable [phone] Jourdan Devine DO Unavailable [phone] John Steven DPM Unavailable Unavailable Samantha Eisenberg PA-C Unavailable Severiano Reid MD Unavailable Encounter Details Date Type Department Care Team (Late st Contact Info) Description 10/29/2020 Ancillary Orders [facility],Outside Imaging 30 [place] [address] System, Provider Not In, PhD Partners [address] [address] Social History Tobacco Use Types Packs/Day Years [...] on filedocumented in this encounter Care Teams Monitoring Specialist Relationship Specialty Start Date End Date Sharmin Culver MD [address] [place] [address] PCP - General 04/14/17 Sharmin Culver MD [address] [place] [address] Historical LMR Provider 04/18/17 2 Sonya Thomas CNM [address] [place] [address] Historical LMR Provider 04/18/17 Brit Hooks, KOKI [address] [place] [address] Historical LMR Provider 04/18/17 07/06/21 Jourdan Devine DO [address] [place] [address] Orthopedics & Sports Medicine, [place] [address] Historical LMR Provider 04/18/17 07/06/21 John Steven DPM [address] [place] [address] Historical LMR Provider 04/18/1707/06/21 Samantha Eisenberg PA-C [address] [place] [address] Orthopedics & Sports Medicine, [facility] [place] [address] [email or web address] Historical LMR Provider 04/18/17 07/06/21 Severiano Reid MD [address] [place] [address] 102 [place] [address] [email or web address] Historical LMR Provider 04/18/17 documented as of this encounter Additional Source Comments The information contained in this document represents components of the legal health record. It is not the complete legal health record.[facility]
--- OUTSIDE RECORDS SUMMARY | 2024-10-03 13:43 | XMS_ITS | Encounter Summary ---
Author Organization [facility] Address [address] [place] [address] Phone Care Team Providers Care Subscription Crew Leader Name Role Phone Sharmin Culver MD Primary Care Provider Sharmin Culver MD Unavailable Sonya Thomas CNM Unavailable Brit Sainz EXTRACTION OPERATOR Unavailable Jourdan Devine DO Unavailable [phone] John Steven DPM Unavailable Unavailable Samantha Eisenberg PA-C Unavailable Severiano Reid MD Unavailable Encounter Details Date Type Department Care Team (Late st Contact Info) Description 10/29/2020 Ancillary Orders [facility],Outside Imaging 30 [place] [address] System, Provider Not In, PhD Partners [address] [address] Social History Tobacco Use Types Packs/Day Years [...] on filedocumented in this encounter Care Teams Subscription Crew Leader Relationship Specialty Start Date End Date Sharmin Culver MD [address] [place] [address] PCP - General 04/14/17 Sharmin Culver MD [address] [place] [address] Historical LMR Provider 04/18/17 2 Sonya Thomas CNM [address] [place] [address] Historical LMR Provider 04/18/17 Brit Hooks, KOKI [address] [place] [address] Historical LMR Provider 04/18/17 07/06/21 Jourdan Devine DO [address] [place] [address] Orthopedics [facility] Sports Medicine, [place] [address] Historical LMR Provider 04/18/17 07/06/21 John Steven DPM [address] [place] [address] Historical LMR Provider 04/18/1707/06/21 Samantha Eisenberg PA-C [address] [place] [address] Orthopedics & Sports Medicine, [facility] [place] [address] [email or web address] Historical LMR Provider 04/18/17 07/06/21 Severiano Reid MD [address] [place] [address] 102 [place] [address] [email or web address] Historical LMR Provider 04/18/17 documented as of this encounter Additional Source Comments The information contained in this document represents components of the legal health record. It is not the complete legal health record.[facility]
--- OUTSIDE RECORDS SUMMARY | 2024-10-03 13:44 | XMS_ITS | Encounter Summary ---
Author Organization [facility] Address [address] [place] [address] Phone Care Team Providers Care Return Agent Name Role Phone Sharmin Culver MD Primary Care Provider Sharmin Culver MD Unavailable Sonya Thomas CNM Unavailable Brit Sainz BUNDLES HANGER Unavailable [phone] Jourdan Devine DO Unavailable John Steven DPM Unavailable Unavailable Samantha Eisenberg PA-C Unavailable Severiano Reid MD Unavailable [phone] Encounter Details Date Type Department Care Team (Late st Contact Info) Description 10/29/2020 Ancillary Orders [facility],Outside Imaging 30 [place] [address] System, Provider Not In, PhD Partners [address] [address] Social History Tobacco Use Types Packs/Day Years [...] on filedocumented in this encounter Care Teams Return Agent Relationship Specialty Start Date End Date Sharmin Culver MD [address] [place] [address] PCP - General 04/14/17 Sharmin Culver MD [address] [place] [address] Historical LMR Provider 04/18/17 2 Sonya Thomas CNM [address] [place] [address] Historical LMR Provider 04/18/17 Brit Hooks, BUNDLES HANGER [address] [place] [address] Historical LMR Provider 04/18/17 07/06/21 Jourdan Devine DO [address] [place] [address] Orthopedics & Sports Medicine, [place] [address] Historical LMR Provider 04/18/17 07/06/21 John Steven DPM [address] [place] [address] Historical LMR Provider 04/18/1707/06/21 Samantha Eisenberg PA-C [address] [place] [address] Orthopedics & Sports Medicine, [facility] [place] [address] [email or web address] Historical LMR Provider 04/18/17 07/06/21 Severiano Reid MD 22 [facility], [facility] 102 [place] [address] [email or web address] Historical LMR Provider 04/18/17 documented as of this encounter Additional Source Comments The information contained in this document represents components of the legal health record. It is not the complete legal health record.[facility]
--- OUTSIDE RECORDS SUMMARY | 2024-10-03 13:44 | XMS_ITS | Clinical Summary ---
Author Organization [facility] Address [address] [place] [address] Phone Care Team Providers Care Materials Planner/Production Planner Name Role Phone Sharmin Culver MD Primary Care Provider [phone] Severiano Reid MD Unavailable [phone] Allergies No known active allergies Medications [...] SEE NARRATIVE - 09/07/2020 9:40 [place] [address] Suspender Maker: Stephanie Hillman MD ?? WAREHOUSE INVENTORY CLERK Cytology Report FINAL DIAGNOSIS A. ??PAP SMEAR [...] 52, 56, 58, 59, 66, 68) by Phytel Onclarity HR-HPV analysis. Clinical correlation is advised. This HPV test was performed at [facility], [address] [place] [address]. This test has been FDA approved for SurePath cervical cytology specimens. The accuracy and precision of this test for all other specimen sources has been verified in the Cytopathology Laboratory of the [facility] and has not been cleared or approved by the U.S. Food and Drug Administration. Clinical correlation is advised. ? CLINICAL HISTORY Date of Last Menstrual Period: ??08-13-2020 Other Clinical Conditions: ??Screening Pap SPECIMEN SOURCE A: PAP SMEAR (SUREPATH) CE Patient Name: ??KENDRA MARTINEZ : ??1970 (Age: 50) Sex: ??F Institution: ??[facility] Location: ??[facility] Date of Collection: ??08/31/2020 Date of Reported: ??09/05/2020 13:22 Results to: Severiano Reid MD, BS Severiano Reid MD CYTOLOGY ORDERABLES SEE NARRATIVE * HM MAMMOGRAPHY FOR RESULT ENTRY ONLY (08/10/2020) Historical Provider MD IRON Lucas from Last 3 Months or Most Recently Relevant to Health Maintenance Care Teams Materials Planner/Production Planner Relationship Specialty Start Date End Date Sharmin Culver MD [address] [place] [address] PCP - General 04/14/17 Severiano Reid MD [address] [facility], [facility] [address] [place] [address] [email or web address] Historical LMR Provider 04/18/17 Additional Source Comments The information contained in this document represents components of the legal health record. It is not the complete legal health record.[facility]
--- OUTSIDE RECORDS SUMMARY | 2024-10-03 13:44 | XMS_ITS | Encounter Summary ---
Author Organization [facility] Address [address] [place] [address] Phone Care Team Providers Care Impact Hammer Operator Name Role Phone Sharmin Culver MD Primary Care Provider [phone] Sharmin Culver MD Unavailable Sonya Thomas CNM Unavailable Brit Sainz MANAGER VISUAL Unavailable [phone] Jourdan Devine DO Unavailable John Steven DPM Unavailable Unavailable Samantha Eisenberg PA-C Unavailable Severiano Reid MD Unavailable Encounter Details Date Type Department Care Team (Late st Contact Info) Description 10/29/2020 Ancillary Orders [facility],Outside Imaging [address] [place] [address] System, Provider Not In, [facility] [address] [address] Social History Tobacco Use Types Packs/Day Years [...] on filedocumented in this encounter Care Teams Impact Hammer Operator Relationship Specialty Start Date End Date Sharmin Culver MD [address] [place] [address] PCP - General 04/14/17 Sharmin Culver MD [address] [place] [address] Historical LMR Provider 04/18/17 2 Sonya Thomas CNM [address] [place] [address] Historical LMR Provider 04/18/17 Brit Hooks, KOKI [address] [place] [address] Historical LMR Provider 04/18/17 07/06/21 Jourdan Devine DO [address] [place] [address] [facility], [place] [address] Historical LMR Provider 04/18/17 07/06/21 John Steven DPM [address] [place] [address] Historical LMR Provider 04/18/1707/06/21 Samantha Eisenberg PA-C [address] [place] [address] Orthopedics & Sports Medicine, [facility] [place] [address] [email or web address] Historical LMR Provider 04/18/17 07/06/21 Severiano Reid MD [address] [place] [address] 102 [place] [address] [email or web address] Historical LMR Provider 04/18/17 documented as of this encounter Additional Source Comments The information contained in this document represents components of the legal health record. It is not the complete legal health record.[facility]
--- OUTSIDE RECORDS SUMMARY | 2024-10-03 13:44 | XMS_ITS | Encounter Summary ---
Author Organization [facility] Address [address] [place] [address] Phone Care Team Providers Care Gynecologist Name Role Phone Sharmin Culver MD Primary Care Provider Sharmin Culver MD Unavailable [phone] Sonya Thomas CNM Unavailable Brit Sainz SECTION WEAVER Unavailable [phone] Jourdan Devine DO Unavailable [phone] John Steven DPM Unavailable Unavailable Samantha Eisenberg PA-C Unavailable Severiano Reid MD Unavailable Encounter Details Date Type Department Care Team (Late st Contact Info) Description 10/29/2020 Ancillary Orders [facility],Outside Imaging [address] [place] [address] System, Provider Not In, [facility] [address] [address] Social History Tobacco Use Types Packs/Day Years [...] on filedocumented in this encounter Care Teams Gynecologist Relationship Specialty Start Date End Date Sharmin Culver MD [address] [place] [address] PCP - General 04/14/17 Sharmin Culver MD [address] [place] [address] Historical LMR Provider 04/18/17 2 Sonya Thomas CNM [address] [place] [address] Historical LMR Provider 04/18/17 Brit Hooks, KOKI [address] [place] [address] Historical LMR Provider 04/18/17 07/06/21 Jourdan Devine DO [address] [place] [address] Orthopedics & Sports Medicine, [place] [address] Historical LMR Provider 04/18/17 07/06/21 John Steven DPM [address] [place] [address] Historical LMR Provider 04/18/1707/06/21 Samantha Eisenberg PA-C [address] [place] [address] Orthopedics & Sports Medicine, [facility] [place] [address] [email or web address] Historical LMR Provider 04/18/17 07/06/21 Severiano Reid MD [address] [place] [address] 102 [place] [address] [email or web address] Historical LMR Provider 04/18/17 documented as of this encounter Additional Source Comments The information contained in this document represents components of the legal health record. It is not the complete legal health record.[facility]
--- OUTSIDE RECORDS SUMMARY | 2024-10-03 13:44 | XMS_ITS | Encounter Summary ---
Author Organization [facility] Address [address] [place] [address] Phone Care Team Providers Care Tankroom Tender Name Role Phone Sharmin Cluver MD Primary Care Provider [phone] Sharmin Culver MD Unavailable Sonya Thomas CNM Unavailable Brit Sainz SKIN CARE TECHNICIAN Unavailable [phone] Jourdan Devine DO Unavailable John Steven DPM Unavailable Unavailable Samantha Eisenberg PA-C Unavailable Severiano Reid MD Unavailable Encounter Details Date Type Department Care Team (Late st Contact Info) Description 10/29/2020 Ancillary Orders [facility],Outside Imaging 30 [place] [address] System, Provider Not In, [facility] [address] [address] Social History Tobacco Use Types Packs/Day Years [...] on filedocumented in this encounter Care Teams Tankroom Tender Relationship Specialty Start Date End Date Sharmin Culver MD [address] [place] [address] PCP - General 04/14/17 Sharmin Culver MD [address] [place] [address] Historical LMR Provider 04/18/17 2 Sonya Thomas CNM [address] [place] [address] Historical LMR Provider 04/18/17 Brit Hooks, KOKI [address] [place] [address] Historical LMR Provider 04/18/17 07/06/21 Jourdan Devine DO [address] [place] [address] Orthopedics & Sports Medicine, [place] [address] Historical LMR Provider 04/18/17 07/06/21 John Steven DPM [address] [place] [address] Historical LMR Provider 04/18/1707/06/21 Samantha Eisenberg PA-C [address] [place] [address] Orthopedics & Sports Medicine, [facility] [place] [address] [email or web address] Historical LMR Provider 04/18/17 07/06/21 Severiano Reid MD [address] [place] [address] 102 [place] [address] [email or web address] Historical LMR Provider 04/18/17 documented as of this encounter Additional Source Comments The information contained in this document represents components of the legal health record. It is not the complete legal health record.[facility]
--- OUTSIDE RECORDS SUMMARY | 2024-10-03 13:44 | XMS_ITS | Encounter Summary ---
Author Organization [facility] Address [address] [facility] [address] [place] [address] Phone Care Team Providers Care Pencil Inspector Name Role Phone Sharmin Culver MD Primary Care Provider Sharmin Culver MD Unavailable [phone] Sonya Thomas CNM Unavailable Brit Sainz OIL PAINTER Unavailable [phone] Jourdan Devine DO Unavailable John Steven DPM Unavailable Unavailable Samantha Eisenberg PA-C Unavailable Severiano Reid MD Unavailable Encounter Details Date Type Department Care Team (Late st Contact Info) Description 09/01/2017 Procedure Pass [facility], [address] [address] Social History Tobacco Use Types Packs/Day Years [...] on filedocumented in this encounter Care Teams Pencil Inspector Relationship Specialty Start Date End Date Shamrin Culver MD 2 [place] [address] PCP - General 04/14/17 Sharmin Culver MD 2 [place] [address] Historical LMR Provider 04/18/17 2 Sonya Thomas CNM [address] [place] [address] Historical LMR Provider 04/18/17 2 Brit Sainz NP [address] [place] [address] [email or web address] Historical LMR Provider 04/18/17 07/06/21 Jourdan Devine DO [address] [place] [address] Orthopedics & Sports [facility], [place] [address] [email or web address] Historical LMR Provider 04/18/17 07/06/21 John Steven DPM [address] [place] [address] Historical LMR Provider 04/18/1707/06/21 Samantha Eisenberg PA-C [address] [place] [address] Orthopedics Sports [facility], [place] [address] [email or web address] Historical LMR Provider 04/18/17 07/06/21 Severiano Reid MD [address] [place] [address], [address] [address] Historical LMR Provider 04/18/17 documented as of this encounter Additional Source Comments The information contained in this document represents components of the legal health record. It is not the complete legal health record.[facility]
== END 2024-10-03 11:24 | disposition home or self-care (01) ==
LOC: HO.MAMMO 11:23
PROVIDERS: PCP Internal Medicine; Visit Provider Internal Medicine
DX: Z12.31 Encounter for screening mammogram for malignant neoplasm of breast (principal)
CPT/HCPCS: 77063; 77067

== ENCOUNTER → 2024-10-03 12:00 | Outpatient (BNV) | payer BC, SELFPAY | PROVIDERS: PCP Internal Medicine; Visit Provider Internal Medicine | DX: Z12.31 Encounter for screening mammogram for malignant neoplasm of breast (principal) | CPT/HCPCS: 77063; 77067 ==

== ENCOUNTER 2024-10-06 09:14 | Outpatient (AMB) | payer BC, SELFPAY ==
[2024-10-06 09:22] VITALS: BP 130/80; PULSE 58; BMI 31.4
--- NOTE | 2024-10-06 09:22 | A.OFFVIS_ITS ---
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 Two years ago, she experienced an episode of disorientation with blood pressure confirmed at 208/108, leading to her seeking emergent care. Following initial treatment with amlodipine, which caused lower extremity swelling, she was transitioned to lisinopril 5 mg with better tolerance. Her current antihypertensive therapy includes lisinopril, which has provided some stability in blood pressure control with home readings ranging fro m 129 to the mid-150 mmHg systolically. She has experienced chest tightness described as a squeezing sensation occurring at rest and with various activities, intermittently associated with exertional dyspnea, especially with stair climbing. Diagnostically relevant is her EKG response during stress testing, which showed abnormalities likely attributed to high blood pressures recorded during exertion (up to 200 mmHg). Ultrasound testing as part of her stress evaluation reported adequate cardiac function. - Significantly elevated blood pressure incident in 2022. - EKG abnormalities on stress test; elevated BP recorded. The patient engages in daily activities that include walking and climbing stairs. She experiences shortness of breath during these activities, suggesting some limitation in exercise tolerance. She attributes some difficulty to deconditioning, as she mentioned shortness of breath and chest tightness when performing chores like laundry. [facility] Medical History (Updated 10/06/24 @ 09:41 by Zohaib Kang MD) Colon cancer screening Obesity (BMI 30.0-34.9) Chest pain Foot pain, left Finger pain, left Colonoscopy refused Periodic limb movement disorder Hypercholesterolemia Surgical History History of arthroscopy of left shoulder Family History Father Myocardial infarction Mother Cervical cancer Hypertension Hyperlipidemia CAD (coronary artery disease) Uterine cancer Maternal Grandmother Ovarian cancer Maternal Grandfather Myocardial infarction Brother No problems noted. Brother No problems noted. Sister No problems noted. Sister No problems noted. Son No problems noted. Social History Housing: House Alcohol intake: current Alcohol intake frequency: holidays/special occasions only Alcohol type: wine Comment: once a week 1-2 glasses of wine Patient Tobacco Use Status: Former Tobacco user Tobacco use type: Cigarette Years Smoked: 1999 Quit e-Cigarette/Vaping Use: Never Used Second Hand Smoke Exposure: Yes service: No Current occupational status: employed Cognitive needs: No Hearing needs: No Vision needs: Yes Review of Systems Const Denies chills, Denies fatigue, Denies fever(s), Denies frequent falls, Denies weakness, Denies weight gain and Denies weight loss ENT Denies dizziness Card Denies chest pain, Denies leg edema, Denies lightheadedness, Denies palpitations, Denies dyspnea, Denies dyspnea on exertion and Denies orthopnea Resp Denies cough, Denies dyspnea and Denies dyspnea on exertion GI Denies bloating and Denies change in bowel habits Musc Denies muscle weakness, Denies numbness and Denies tingling Neuro Denies dizziness, Denies frequent falls, Denies numbness, Denies tingling and Denies weakness Endo Denies fatigue and Denies palpitations Physical Exam Vital Signs: Last Vital Signs Pulse 58 10/06/24 09:22 BP 130/80 10/06/24 09:22 BMI result Body Mass Index 31.4 Const General: comfortable and no acute distress Orientation/consciousness: patient oriented x3 HEENT Other: Unremarkable Head: Yes normal to inspection Neck Neck: Yes normal visual inspection Chest Chest palpation & inspection: normal inspection of the chest Resp Auscultation: clear to auscultation bilaterally Cardio Palpation: normal PMI Heart sounds: S1 normal heart sound present, S2 normal heart sound present, no gallops, no murmurs and no rubs GI Palpation (GI): Soft to palpation Back/Spine/Pelvis Other: unremarkable Skin General skin exam: no rashes or lesions noted Neuro General: patient oriented x3 Extrem General: Yes normal to inspection Psych Mental Status: mental status grossly normal Office Procedures EKG Details: EKG with underlying sinus bradycardia at 58/Min; low-voltage QRS complexes; cannot exclude old anterior infarct; [place] [id number], Complete Assessment & Plan Assessment & Plan (1) Chest pain: Code(s): R07.9 - Chest pain, unspecified Category: Medical (2) Hypertension: Code(s): I10 - Essential (primary) hypertension Category: Medical (3) Abnormal stress test: Code(s): R94.39 - Abnormal result of other cardiovascular function study Category: Medical Plan She has undergone an ETT as well as exercise stress echo. In the EKG portion, there was hypertensive blood pressure response and EKG suggestion of ST- depression in inferior/anterolateral leads and ST-elevation in AVR. Not clear if it is all related to hypertensive blood pressure response or ischemia. The echocardiographic component was unremarkable. Blood pressure was as much as 221/106mmHg with exercise. During the consultation, I discussed with the patient the potential need to increase her lisinopril dosage to improve her blood pressure control and possibly alleviate her chest symptoms during exertion. The option of a computed tomography angiography was addressed to further investigate the possibility of coronary artery disease, which might explain her symptoms. We reviewed the roles of echocardiography and the CTA, how these tests differ, and their respective use in assessing cardiac and vascular conditions. She was informed of the need to have the CTA conducted at [facility] due to facility availability. The potential benefits of obtaining these studies were reviewed, along with the importance of close monitoring of her blood pressure at home to accurately tailor her medication. Patient was informed and verbally consented to the use of an ambient scribe for clinic note documentation during this visit. Orders: Orders Basic Metabolic Panel Today R07.9 - Chest pain, unspecified CT Cardiac Coronary Angio Today I25.10 - Atherosclerotic heart disease of [place] coronary artery without angina pectoris, R07.9 - Chest pain, unspecified CA echo transthoracic complete Today I10 - Essential (primary) hypertension, R07.9 - Chest pain, unspecified, R94.39 - Abnormal result of other cardiovascular function study Patient Instructions: - Monitor blood pressure at home and keep a log. - Trial adjustment of lisinopril dosage to 7.5 mg or 10 mg based on blood pressure readings and symptoms. - Appointment will be scheduled for an echocardiogram. - Undergo recommended CTA at [facility]. - Contact physician immediately if experiencing worsening shortness of breath or chest pain. - Wear compression socks during prolonged periods on feet. - Discuss lifestyle and potential exercise regimen adjustments. Coding Level of Care Code New Pt Level 4 (33801) Complex EM visit Add On G2211 Diagnoses Chest pain R07.9 Hypertension I10 Abnormal stress test R94.39 CPT Codes EKG - CPT: 89485-[id number], Complete ([id number])
== END 2024-10-06 09:50 | disposition home or self-care (01) ==
LOC: HO.HCS 09:15
PROVIDERS: PCP Internal Medicine; Visit Provider Internal Medicine
DX: R07.9 Chest pain, unspecified (principal); I10 Essential (primary) hypertension; R94.39 Abnormal result of other cardiovascular function study
CPT/HCPCS: 93010; 99204

== ENCOUNTER → 2024-10-06 09:14 | Outpatient (BNVA) | payer BC, SELFPAY | PROVIDERS: PCP Internal Medicine; Visit Provider Internal Medicine | DX: R07.9 Chest pain, unspecified (principal); R94.39 Abnormal result of other cardiovascular function study; I10 Essential (primary) hypertension | CPT/HCPCS: 93005 ==

== ENCOUNTER → 2024-11-10 07:49 | Outpatient (REF) | payer BC, SELFPAY ==
--- NOTE | 2024-11-10 07:51 | CA_ITS ---
Transthoracic Echocardiogram Patient (Last, First, Middle): Kendra De Los Santos E Gender: Female Date of : 1970 Age: 54 Procedure Date: 11/10/2024 Procedure Type: Transthoracic Echocardiogram Location: OP Height: 157.48 cm Weight: 77.11 kg BSA: 1.78 m2 Heart Rate: bpm BP: 105 / 70 mmHg Lead Project Engineer: SB/RC Referring MD: Zohaib Kang MD Manufacturing Project Engineer: Hung Padilla MD Symptoms: R07.9 - Chest pain, unspecified Study Quality: Adequate w contrast ECG Rhythm: Sinus Conclusions: - 1. Hyperdynamic LV ejection fraction of greater than 70% with impaired relaxation filling pattern 2. Normal cardiac valvular Dopplers 3. No gross pericardial effusion Findings Procedure Information Contrast agent, definity, is being given per protocol without apparent complications. Left Ventricle Normal left ventricular cavity size. There is normal left ventricular wall thickness. The left ventricular systolic function is hyperdynamic. The visually estimated ejection fraction is >70%. Spectral Doppler is indicative of an impaired relaxation filling pattern. E/E prime ratio is between 8 and 15 consistent with indeterminate filling pressures. Right Ventricle Normal right ventricular cavity size and systolic function. Atria The left atrium is normal in size. Interatrial shunt cannot be excluded. The right atrium is normal in size. Aortic Valve The aortic valve structure and function is likely normal. There is no aortic valve stenosis. There is no aortic valve regurgitation. Mitral Valve Normal mitral valve structure and function. There is trace mitral valve regurgitation. There is no mitral valve stenosis. Pulmonic Valve The pulmonic valve was not well visualized. Tricuspid Valve Likely normal tricuspid valve structure and function. Tricuspid regurgitation envelope is inadequate for calculation of right ventricular systolic pressure. Normal right atrial pressure. Great Vessels All visible segments of the aorta are normal in size. The pulmonary artery was not well visualized. There is no dilatation of the ascending aorta measuring 3.20 cm. Venous The inferior vena cava is normal in size and collapses greater than 50% with inspiration. Pericardium/Pleural There is no evidence of pericardial effusion. Prior Study Comparison No significant change compared to prior study dated: 07/28/2017. Measurements 2D Linear Measurements IVSd: 0.95 0.6-0.9/0.6-1.0 cm LVIDd: 3.86 3.9-5.3/4.2-5.9 cm LVIDd Index: 2.17 2.4-3.2/2.2-3.1 cm/m2 LVIDs: 2.12 2.0-3.6 cm LVPWd: 1.07 0.7-1.1 cm LA Diam: 3.20 2.7-3.8/3.0-4.0 cm LAIDs Index: 1.80 1.5-2.3 cm/m2 LV Mass: 151.19 67-162/88-224 g LV Mass Index: 84.94 43-95/49-115 g/m2 LVOT Diam: 2.00 3.0+(-)1.3 cm 2D Systolic Function EF 4C: 80.40 >55% EF 2C: 76.10 >55% EF BiP: 78.30 >55% Mitral Valve MV Pk E: 0.65 MV PK A: 0.78 MV Decel Time: 331.00 E/A: 0.80 E'Lateral: 5.77 E'Medial: 7.83 E/E' Med: 8.30 E/E' Lat: 11.20 PHT: 97.00 MVA PHT: 2.27 Decel Vernon: 1.96 Aortic Valve AoV Pk Palomo: 1.17 AoV Mn Palomo: 0.84 AoV VTI: 0.26 AoV Pk Grad: 5.00 Aov Mn Grad: 3.00 DENA Cont.VTI: 2.57 LVOT LVOT Pk Palomo: 0.93 LVOT Mn Palomo: 0.71 LVOT VTI: 0.21 LVOT Pk Grad: 3.00 LVOT Mn Grad: 2.00 LVOT Diam: 2.00 LVOT Area: 3.14 Diastolic Function MV Pk E: 0.65 MV Pk A: 0.78 E/A: 0.80 E'Medial: 7.83 E/E' Med: 8.30 E' Laterial: 5.77 E/E' Lat: 11.20 Right Ventricle TAPSE (mm): 17.80 TVS' Palomo: 9.03 Great Vessels Aorta Sinus of Valsalva: 3.00 2.0-3.5 cm Ao Asc: 3.20 2.1-3.4 cm Pulmonary Valve PV Pk Palomo: 0.76 Peak PV Grad: 2.00 Updated in Other Vendor System with Status of Final Hung Padilla MD electronically signed on 11/10/2024 7:22:17 PM with status of Final
--- OUTSIDE RECORDS SUMMARY | 2024-11-10 07:51 | XMS_ITS | Clinical Summary ---
Author Organization [facility] Address [address] [place] [address] Phone Care Team Providers Care Assembler Wire Group Name Role Phone Sharmin Culver MD Primary Care Provider [phone] Severiano Reid MD Unavailable [phone] Allergies No known active allergies Medications ascorbic acid, vitamin C, (VITAMIN C) 500 [...] with a working camera? 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 Not on file Not on file Not on file Last Filed Vital Signs [...] 1971 LIPID PANEL 1971 DEPRESSION SCREENING 1983 SMOKING Hx and SMOKELESS TOBACCO SCREENING 1984 HEPATITIS C SCREENING 1989 HIV ONE-TIME SCREENING (18-65 YEARS) 1989 SCREENING FOR DIABETES 2006 COLOGUARD 2016 COLONOSCOPY 2016 COLORECTAL CANCER SCREENING 2016 FIT TEST 2016 FOBT 2016 SIGMOIDOSCOPY 2016 VIRTUAL COLONOSCOPY 2016 PNEUMOCOCCAL VACCINES (50+ years) (1 of 1 - PCV) 2021 ZOSTER VACCINES (1 of 2) 2021 MAMMOGRAM 08/10/2022 08/10/2020, 07/30, 08/05/2019, Additional history exists PAP SMEAR 09/01/2023 08/31/2020 COVID-19 VACCINE ( season) 2024 HEPATITIS A VACCINES Aged Out No long [...] SEE NARRATIVE - 09/07/2020 9:40 [place] [address] Fountain Pen Nibs Inspector: Stephanie Hillman MD ?? VP TALENT MANAGEMENT Cytology Report FINAL DIAGNOSIS A. ??PAP SMEAR [...] 52, 56, 58, 59, 66, 68) by [employer] Onclarity HR-HPV analysis. Clinical correlation is advised. This HPV test was performed at [facility], [address] [place] [address]. This test has been FDA approved for SurePath cervical cytology specimens. The accuracy and precision of this test for all other specimen sources has been verified in the Cytopathology Laboratory of the [facility] and has not been cleared or approved by the U.S. Food and Drug Administration. Clinical correlation is advised. ? CLINICAL HISTORY Date of Last Menstrual Period: ??08-13-2020 Other Clinical Conditions: ??Screening Pap SPECIMEN SOURCE A: PAP SMEAR (SUREPATH) CE Patient Name: ??KENDRA MARTINEZ : ??1970 (Age: 50) Sex: ??F Institution: [facility] Location[facility] Date of Collection: ??08/31/2020 Date of Reported: ??09/05/2020 13:22 Results to: Severiano Reid MD, BS Severiano Reid MD CYTOLOGY ORDERABLES Edited Re sult - Final SEE NARRATIVE * MAMMOGRAPHY FOR RESULT ENTRY ONLY (08/10/2020) Historical Provider HEALTH MAINTENANCE Final Result from Last 3 Months or Most Recently Relevant to Health Maintenance Insurance [facility] OUT STATE PPO BLUE CROSS OUT OF STATE PPO BLUE CROSS OUT OF STATE PPO BLUE CROSS OUT OF STATE PPO BLUE CROSS OUT OF STATE PPO BLUE CROSS OUT OF STATE PPO BLUE CROSS OUT OF STATE PPO [facility] OUT OF STATE PPO BLUE CROSS OUT OF STATE PPO Care Teams Assembler Wire Group Relationship Specialty Start Date End Date Sharmin Culver MD [address] [place] [address] PCP - General 04/14/17 Severiano Reid MD [address] [facility], [address] [place] [address] Historical LMR Provider 04/18/17 Additional Source Comments The information contained in this document represents components of the legal health record. It is not the complete legal health record.[facility]
--- OUTSIDE RECORDS SUMMARY | 2024-11-10 07:51 | XMS_ITS | Encounter Summary ---
Author Organization [facility] Address [address] [place] [address] Phone Care Team Providers Care Administrative Staff Supervisor Name Role Phone Sharmin Culver MD Primary Care Provider Sharmin Culver MD Unavailable Sonya Thomas CNM Unavailable Brit Sainz X RAY ELECTRONICS WIRING TECHNICIAN Unavailable [phone] Jourdan Devine DO Unavailable John Steven DPM Unavailable Unavailable Samantha Eisenberg PA-C Unavailable Severiano Reid MD Unavailable [phone] Encounter Details Date Type Department Care Team (Late st Contact Info) Description 10/29/2020 Ancillary Orders 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 us Provider Not In System PhD IMG OUTSIDE IMAGING W /OUT INTERPRETATION Final Result documented in this encounter Visit Diagnoses Not on filedocumented in this encounter Care Teams Administrative Staff Supervisor Relationship Specialty Start Date End Date Sharmin Culver MD 2 [place] [address] PCP - General 04/14/17 Sharmin Culver MD 2 [place] [address] Historical LMR Provider 04/18/17 2 Sonya Thomas CNM [address] [place] [address] Historical LMR Provider 04/18/17 2 Brit Sainz NP [address] [place] [address] Historical LMR Provider 04/18/17 07/06/21 Jourdan Devine DO [address] [place] [address] [facility], [place] [address] Historical LMR Provider 04/18/17 07/06/21 John Steven DPM [address] [place] [address] Historical LMR Provider 04/18/1707/06/21 Samantha Eisenberg PA-C [address] [place] [address] [facility], [facility] [place] [address] [email or web address] Historical LMR Provider 04/18/17 07/06/21 Severiano Reid MD [address] [place] [address], [address] [place] [address] [email or web address] Historical LMR Provider 04/18/17 documented as of this encounter Additional Source Comments The information contained in this document represents components of the legal health record. It is not the complete legal health record.[facility]
--- OUTSIDE RECORDS SUMMARY | 2024-11-10 07:51 | XMS_ITS | Encounter Summary ---
Author Organization [facility] Address [address] [place] [address] Phone Care Team Providers Care Surveying Crew Stake Runner Name Role Phone Sharmin Culver MD Primary Care Provider Sharmin Culver MD Unavailable [phone] Sonya Thomas CNM Unavailable Brit Sainz LINOLEUM INSTALLER Unavailable [phone] Jourdan Devine DO Unavailable John Steven DPM Unavailable Unavailable Samantha Eisenberg PA-C Unavailable Severiano Reid MD Unavailable Encounter Details Date Type Department Care Team (Late st Contact Info) Description 10/29/2020 Ancillary Orders [facility],Outside Imaging 30 [place] [address] System, Provider Not In, [facility] [address] [address] Social History Tobacco Use Types Packs/Day Years [...] 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 Not on [...] on filedocumented in this encounter Care Teams Surveying Crew Stake Runner Relationship Specialty Start Date End Date Sharmin Culver MD 2 [place] [address] PCP - General 04/14/17 Sharmin Culver MD 2 [place] [address] Historical LMR Provider 04/18/17 2 Sonya Thomas CNM [address] [place] [address] Historical LMR Provider 04/18/17 2 Brit Sainz NP [address] [place] [address] Historical LMR Provider 04/18/17 07/06/21 Jourdan Devine DO [address] [place] [address] [facility], [place] [address] Historical LMR Provider 04/18/17 07/06/21 John Steven DPM [address] [place] [address] Historical LMR Provider 04/18/1707/06/21 Samantha Eisenberg PA-C [address] [place] [address] Orthopedics [facility], [facility] [place] [address] [email or web address] Historical LMR Provider 04/18/17 07/06/21 Severiano Reid MD [address] [place] [address], [address] [place] [address] [email or web address] Historical LMR Provider 04/18/17 documented as of this encounter Additional Source Comments The information contained in this document represents components of the legal health record. It is not the complete legal health record.[facility]
--- OUTSIDE RECORDS SUMMARY | 2024-11-10 07:51 | XMS_ITS | Encounter Summary ---
Author Organization [facility] Address [address] [place] [address] Phone Care Team Providers Care Ad Operations Intern Name Role Phone Sharmin Culver MD Primary Care Provider [phone] Sharmin Culver MD Unavailable [phone] Sonya Thomas CNM Unavailable [phone] Brit Sainz MANAGER LABOR RELATIONS Unavailable [phone] Jourdan Devine DO Unavailable [phone] John Steven DPM Unavailable Unavailable Samantha Eisenberg PA-C Unavailable Severiano Reid MD Unavailable Encounter Details Date Type Department Care Team (Late st Contact Info) Description 09/01/2017 Procedure Pass [facility] [address] [place] [address] Social History Tobacco Use Types Packs/Day Years Used Date Smoking Tobacco: Former Cigarettes 2 - 2002 Smokeless Tobacco: Never Comments:~1 cigarette qd, <1 ppw Alcohol Use Standard Drinks/Week Comments Yes 0 (1 standard drink = 0.6 oz pur e alcohol) Comments Unknown Sex and Gender Information Value Date Recorded Sex Assigned at Not on file Legal Sex Female 9:33 PM EDT Gender Identity Not on file Sexual Orientation Not on file documented as of this encounter Plan of Treatment Not on file documented as of this encounter Visit Diagnoses Not on filedocumented in this encounter Care Teams Ad Operations Intern Relationship Specialty Start Date End Date Sharmin Culver MD 2 [place] [address] PCP - General 04/14/17 Sharmin Culver MD [address] [place] [address] Historical LMR Provider 04/18/17 2 Sonya Thomas CNM [address] [place] [address] Historical LMR Provider 04/18/17 2 Brit Sainz NP [address] [place] [address] [email or web address] Historical LMR Provider 04/18/17 07/06/21 Jourdan Devine DO [address] [place], [place] [address]s [facility], [place] [address] [email or web address] Historical LMR Provider 04/18/17 07/06/21 John Steven DPM [address] [place] [address] Historical LMR Provider 04/18/1707/06/21 Samantha Eisenberg PA-C [address] [place] [address] [email or web address] Historical LMR Provider 04/18/17 07/06/21 Severiano Reid MD [address] [place] [address], [address] [address] [email or web address] Historical LMR Provider 04/18/17 documented as of this encounter Additional Source Comments The information contained in this document represents components of the legal health record. It is not the complete legal health record.[facility]
--- OUTSIDE RECORDS SUMMARY | 2024-11-10 07:51 | XMS_ITS | Encounter Summary ---
Author Organization [facility] Address [address] [place] [address] Phone Care Team Providers Care Hazardous Materials Analyst Name Role Phone Sharmin Culver MD Primary Care Provider [phone] Sharmin Culver MD Unavailable Sonya Thomas CNM Unavailable Brit Sainz ENTRY LEVEL AUTOMOTIVE TECHNICIAN Unavailable [phone] Jourdan Devine DO Unavailable John Steven DPM Unavailable Unavailable Samantha Eisenberg PA-C Unavailable Severiano Reid MD Unavailable [phone] Encounter Details Date Type Department Care Team (Late st Contact Info) Description 10/29/2020 Ancillary Orders [facility],Outside Imaging 30 [place] [address] System, Provider Not In, [facility] [address] [address] Social History Tobacco Use Types Packs/Day Years [...] 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 [...] on filedocumented in this encounter Care Teams Hazardous Materials Analyst Relationship Specialty Start Date End Date Sharmin Culver MD 2 [place] [address] PCP - General 04/14/17 Sharmin Culver MD 2 [place] [address] Historical LMR Provider 04/18/17 2 Sonya Thomas CNM [address] [place] [address] Historical LMR Provider 04/18/17 2 Brit Sainz NP [address] [place] [address] Historical LMR Provider 04/18/17 07/06/21 Jourdan Devine DO [address] [place] [address] [facility], [place] [address] Historical LMR Provider 04/18/17 07/06/21 John Steven DPM [address] [place] [address] Historical LMR Provider 04/18/1707/06/21 Samantha Eisenberg PA-C [address] [place] [address] Orth[facility], [place] [address] [email or web address] Historical LMR Provider 04/18/17 07/06/21 Severiano Reid MD [address] [place] [address], [address] [place] [address] [email or web address] Historical LMR Provider 04/18/17 documented as of this encounter Additional Source Comments The information contained in this document represents components of the legal health record. It is not the complete legal health record.[facility]
--- OUTSIDE RECORDS SUMMARY | 2024-11-10 07:51 | XMS_ITS | Encounter Summary ---
Author Organization [facility] Address [address] [place] [address] Phone Care Team Providers Care Board Of Education Secretary Name Role Phone Sharmin Culver MD Primary Care Provider [phone] Sharmin Culver MD Unavailable Sonya Thomas CNM Unavailable Brit Sainz LABOR AND EMPLOYMENT PARALEGAL Unavailable [phone] Jourdan Devine DO Unavailable John Steven DPM Unavailable Unavailable Samantha Eisenberg PA-C Unavailable Severiano Reid MD Unavailable [phone] Encounter Details Date Type Department Care Team (Late st Contact Info) Description 10/29/2020 Ancillary Orders [facility],Outside Imaging 30 [place] [address] System, Provider Not In, [facility] [address] [address] Social History Tobacco Use Types Packs/Day Years [...] 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 [...] on filedocumented in this encounter Care Teams Board Of Education Secretary Relationship Specialty Start Date End Date Sharmin Culver MD 2 [place] [address] PCP - General 04/14/17 Sharmin Culver MD 2 [place] [address] Historical LMR Provider 04/18/17 2 Sonya Thomas CNM [address] [place] [address] Historical LMR Provider 04/18/17 2 Brit Sainz NP [address] [place] [address] Historical LMR Provider 04/18/17 07/06/21 Jourdan Devine DO [address] [place] [address] [facility], [place] [address] Historical LMR Provider 04/18/17 07/06/21 John Steven DPM [address] [place] [address] Historical LMR Provider 04/18/1707/06/21 Samantha Eisenberg PA-C [address] [place] [address] Orth[facility], [facility] [place] [address] [email or web address] Historical LMR Provider 04/18/17 07/06/21 Severiano Reid MD [address] [place] [address], [address] [place] [address] [email or web address] Historical LMR Provider 04/18/17 documented as of this encounter Additional Source Comments The information contained in this document represents components of the legal health record. It is not the complete legal health record.[facility]
--- OUTSIDE RECORDS SUMMARY | 2024-11-10 07:51 | XMS_ITS | Encounter Summary ---
Author Organization [facility] Address [address] [place] [address] Phone Care Team Providers Care Art Professor Name Role Phone Sharmin Culver MD Primary Care Provider Sharmin Culver MD Unavailable Sonya Thomas CNM Unavailable Brit Sainz GLOBAL HUMAN RESOURCES DIRECTOR Unavailable [phone] Jourdan Devine DO Unavailable John Steven DPM Unavailable Unavailable Samantha Eisenberg PA-C Unavailable Severiano Reid MD Unavailable Encounter Details Date Type Department Care Team (Late st Contact Info) Description 10/29/2020 Ancillary Orders [facility],Outside Imaging 30 [place] [address] System, Provider Not In, [facility] [address] [address] Social History Tobacco Use Types Packs/Day Years [...] 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 Not [...] on filedocumented in this encounter Care Teams Art Professor Relationship Specialty Start Date End Date Sharmin Culver MD 2 [place] [address] PCP - General 04/14/17 Sharmin Culver MD 2 [place] [address] Historical LMR Provider 04/18/17 2 Sonya Thomas CNM [address] [place] [address] Historical LMR Provider 04/18/17 2 Brti Sainz NP [address] [place] [address] Historical LMR Provider 04/18/17 07/06/21 Jourdan Devine DO [address] [place] [address] [facility], [place] [address] Historical LMR Provider 04/18/17 07/06/21 John Steven DPM [address] [place] [address] Historical LMR Provider 04/18/1707/06/21 Samantha Eisenberg PA-C [address] [place] [address] [facility], [facility] [place] [address] [email or web address] Historical LMR Provider 04/18/17 07/06/21 Severiano Reid MD [address] [place] [address], [address] [place] [address] [email or web address] Historical LMR Provider 04/18/17 documented as of this encounter Additional Source Comments The information contained in this document represents components of the legal health record. It is not the complete legal health record.[facility]
--- OUTSIDE RECORDS SUMMARY | 2024-11-10 07:51 | XMS_ITS | Encounter Summary ---
Author Organization [facility] Address [address] [place] [address] Phone Care Team Providers Care Spacecraft Systems Engineer Name Role Phone Sharmin Culver MD Primary Care Provider Sharmin Culver MD Unavailable Sonya Thomas CNM Unavailable Brit Sainz TOBACCO DRIER OPERATOR Unavailable [phone] Jourdan Devine DO Unavailable John Steven DPM Unavailable Unavailable Samantha Eisenberg PA-C Unavailable Severiano Reid MD Unavailable Encounter Details Date Type Department Care Team (Late st Contact Info) Description 10/29/2020 Ancillary Orders [facility],Outside Imaging 30 [place] [address] System, Provider Not In, [facility] [address] [address] Social History Tobacco Use Types Packs/Day Years [...] 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 [...] on filedocumented in this encounter Care Teams Spacecraft Systems Engineer Relationship Specialty Start Date End Date Sharmin Culver MD 2 [place] [address] PCP - General 04/14/17 Sharmin Culver MD 2 [place] [address] Historical LMR Provider 04/18/17 2 Sonya Thomas CNM [address] [place] [address] Historical LMR Provider 04/18/17 2 Brit Sainz NP [address] [place] [address] Historical LMR Provider 04/18/17 07/06/21 Jourdan Devine DO [address] [place] [address] [facility], [place] [address] Historical LMR Provider 04/18/17 07/06/21 John Steven DPM [address] [place] [address] Historical LMR Provider 04/18/1707/06/21 Samantha Eisenberg PA-C [address] [place] [address] Orth[facility], [facility] [place] [address] [email or web address] Historical LMR Provider 04/18/17 07/06/21 Severiano Reid MD [address] [place] [address], [address] [place] [address] [email or web address] Historical LMR Provider 04/18/17 documented as of this encounter Additional Source Comments The information contained in this document represents components of the legal health record. It is not the complete legal health record.[facility]
--- OUTSIDE RECORDS SUMMARY | 2024-11-10 07:51 | XMS_ITS | Encounter Summary ---
Author Organization [facility] Address [address] [place] [address] Phone Care Team Providers Care Structural Steel Worker Helper Name Role Phone Sharmin Culver MD Primary Care Provider [phone] Sharmin uClver MD Unavailable Sonya Thomas CNM Unavailable Brit Sainz COMMISSION SALES ASSOCIATE Unavailable [phone] Jourdan Devine DO Unavailable John Steven DPM Unavailable Unavailable Samantha Eisenberg PA-C Unavailable Severiano Reid MD Unavailable [phone] Encounter Details Date Type Department Care Team (Late st Contact Info) Description 10/29/2020 Ancillary Orders [facility],Outside Imaging 30 [place] [address] System, Provider Not In, [facility] [address] [address] Social History Tobacco Use Types Packs/Day Years [...] 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 Not [...] on filedocumented in this encounter Care Teams Structural Steel Worker Helper Relationship Specialty Start Date End Date Sharmin Culver MD 2 [place] [address] PCP - General 04/14/17 Sharmin Culver MD 2 [place] [address] Historical LMR Provider 04/18/17 2 Sonya Thomas CNM [address] [place] [address] Historical LMR Provider 04/18/17 2 Brit Sainz NP [address] [place] [address] Historical LMR Provider 04/18/17 07/06/21 Jourdan Devine DO [address] [place] [address] [facility], [place] [address] Historical LMR Provider 04/18/17 07/06/21 John Steven DPM [address] [place] [address] Historical LMR Provider 04/18/1707/06/21 Samantha Eisenberg PA-C [address] [place] [address] [facility], [facility] [place] [address] [email or web address] Historical LMR Provider 04/18/17 07/06/21 Severiano Reid MD [address] [place] [address], [address] [place] [address] [email or web address] Historical LMR Provider 04/18/17 documented as of this encounter Additional Source Comments The information contained in this document represents components of the legal health record. It is not the complete legal health record.[facility]
== END ==
LOC: HO.CARD 07:49
PROVIDERS: PCP Internal Medicine; Visit Provider Internal Medicine
DX: R07.9 Chest pain, unspecified (principal); I10 Essential (primary) hypertension; R94.39 Abnormal result of other cardiovascular function study
CPT/HCPCS: 93306; Q9957

== ENCOUNTER → 2024-11-10 07:51 | Outpatient (BNV) | payer BC, SELFPAY | PROVIDERS: PCP Internal Medicine; Visit Provider Internal Medicine Cardiovascular Disease | DX: R07.9 Chest pain, unspecified (principal) | CPT/HCPCS: 93306 ==

== ENCOUNTER 2024-11-22 06:52 | Outpatient (REF) | payer BC, SELFPAY ==
[2024-11-22 07:10] LABS: MANUAL DIFF FLAG NO
[2024-11-22 07:18] LABS: Basophils Absolute Auto 0.1 X10*3/uL (0.0-0.2); Eosinophils Absolute Auto 0.3 X10*3/uL (0.0-0.4); Eosinophils Percent Auto 3.6 % (0-4); Hematocrit 42.7 % (37.0-47.0); Hemoglobin 14.8 g/dl (12.0-16.0); Imm Gran Abs Auto 0.01 X10*3/uL (0.00-0.03); Imm Gran Pct Auto 0.1 % (0.0-0.4); Lymphocytes Percent Auto 40.7 % (20-40); Mean Corpuscular HGB Conc 34.7 g/dl (31.0-35.0); Mean Corpuscular Hemoglobin 30.8 pg (27.0-33.0); Mean Corpuscular Volume 88.8 fL (80.0-98.0); Mean Platelet Volume 10.2 fL (9.4-12.3); Monocytes Absolute Auto 0.5 X10*3/uL (0.1-1.2); Monocytes Percent Auto 6.6 % (2-11); Neutrophils Absolute Auto 3.5 x10*3/uL (2.0-8.3); Platelet Count 339 X10*3/uL (160-400); Red Blood Count 4.81 X10*6/uL (4.20-5.50); Red Cell Distribution Width 12.3 % (11.0-16.0); White Blood Count 7.3 X10*3/uL (4.8-10.8)
[2024-11-22 07:58] LABS: Anion Gap 13 (12-20); Blood Urea Nitrogen 18 mg/dL (9-16); Carbon Dioxide 26 mmol/L (22-29); Chloride 106 mmol/L (96-108); Cholesterol 304 mg/dL (<200); Estimated Glomerular Filt Rate > 60; Glucose Random 97 mg/dL (60-115); HDL Cholesterol 51 mg/dL (>40); LDL Cholesterol Calculated 228 mg/dL (<100); Potassium 4.5 mmol/L (3.3-5.1); Sodium 140 mmol/L (135-145); Triglycerides 127 mg/dL (<150)
[2024-11-22 08:17] LABS: Free T4 (Free Thyroxine) 0.91 ng/dL (0.71-1.85); Thyroid Stimulating Hormone 4.33 uIU/mL (0.32-4.0); Vitamin D 25-OH Total 41.3 ng/mL (>30)
[2024-11-22 08:26] LABS: Folate 14.5 ng/mL (> or = 4.0); Vitamin B12 1007 pg/mL (200-900)
[2024-11-22 09:01] LABS: Estimated Average Glucose 105 mg/dL; Hemoglobin A1c % 5.3 % (<6.0)
== END 2024-11-22 06:53 | disposition home or self-care (01) ==
LOC: HO.LAB 06:52
PROVIDERS: PCP Internal Medicine; Visit Provider Internal Medicine
DX: R73.01 Impaired fasting glucose (principal); E78.00 Pure hypercholesterolemia, unspecified; R07.9 Chest pain, unspecified
CPT/HCPCS: 36415; 80048; 80061; 82306; 82607; 82746; 83036; 84439; 84443; 85025

== ENCOUNTER 2024-12-13 15:27 | Outpatient (AMB) | payer BC, SELFPAY ==
[2024-12-13 15:33] VITALS: BP 132/80; PULSE 62; O2SAT 98; BMI 31.2
--- NOTE | 2024-12-13 15:33 | A.OFFPC_ITS ---
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: No Accompanied by: Self / Same As Patient Allergies amlodipine Adverse Reaction (Intermediate, Verified 12/13/24 15:33) leg swelling simvastatin Adverse Reaction (Intermediate, Verified 12/13/24 15:33) myalgia Tobacco use date assessed: 12/13/24 Dental Screening Dental Screen Date: 12/13/24 Did you have a dental visit in the last 12 months?: No Did you have a dental problem in the last 6 months where you did not have access to dental care?: No Was dental information given to patient?: Patient has dentist [facility] Medical History (Updated 12/13/24 @ 16:07 by Sharmin Culver MD) Colon cancer screening Obesity (BMI 30.0-34.9) Chest pain Foot pain, left Finger pain, left Colonoscopy refused Periodic limb movement disorder Hypercholesterolemia Surgical History History of arthroscopy of left shoulder Family History Father Myocardial infarction Mother Cervical cancer Hypertension Hyperlipidemia CAD (coronary artery disease) Uterine cancer Maternal Grandmother Ovarian cancer Maternal Grandfather Myocardial infarction Brother No problems noted. Brother No problems noted. Sister No problems noted. Sister No problems noted. Son No problems noted. Social History Housing: House Alcohol intake: current Alcohol intake frequency: holidays/special occasions only Alcohol type: wine Comment: once a week 1-2 glasses of wine Patient Tobacco Use Status: Former Tobacco user Tobacco use type: Cigarette Years Smoked: 1999 Quit e-Cigarette/Vaping Use: Never Used Second Hand Smoke Exposure: Yes service: No Current occupational status: employed Cognitive needs: No Hearing needs: No Vision needs: Yes Questionnaire PHQ-9 Over the last 2 weeks, how often have you been bothered by any of the following problems? 1. Little interest or pleasure in doing things: not at all 2. Feeling down, depressed, or hopeless: not at all 3. Trouble falling or staying asleep, or sleeping too much: not at all 4. Feeling tired or having little energy: not at all 5. Poor appetite or overeating: not at all 6. Feeling bad about yourself - or that you are a failure or have let yourself or your family down: not at all 7. Trouble concentrating on things, such as reading the newspaper or watching television: not at all 8. Moving or speaking so slowly that other people could have noticed. Or the opposite - being so fidgety or restless that you have been moving around a lot more than usual: not at all 9. Thoughts that you would be better off or of hurting yourself in some way: not at all Total score: 0 Depression Screening Interpretation: Negative Depression Screening Done: Yes 66690 - PHQ-9 Billing: Yes Source: Developed by Drs. Jim Hernandez, Nikia Bowman, Jesus Sainz and colleagues, with an educational terrie from [employer]. Thrive Questionnaire Date Thrive assessed: 12/13/24 I am a: Patient What is your living situation today?: I have a steady place to live Within the past 12 months, did the food you bought not last and you didn't have the money to get more?: Never true Within the past 12 months, did you worry whether your food would run out before you got money to buy more?: Never true Do you have trouble paying for medicines?: No Do you have trouble getting transportation to medical appointments?: No Do you have trouble paying your heating and electricity bill?: No Do you have trouble taking care of your child, family member or friend?: No Do you have trouble with day-to-day activities such as bathing, preparing meals, shopping, managing finances, etc.?: No Are you currently unemployed and looking for a job?: Yes Are you interested in more education?: No Please select the resources that you would like help with: None Currently or been in a relationship where the following occur: No concerns reported THRIVE Score: 0 AUDIT C Alcohol Use Questionnaire (AUDIT-C) 1. How often do you have a drink containing alcohol?: Monthly or less 2. How many drinks containing alcohol do you have on a typical day when you are drinking?: 1 or 2 3. How often do you have six or more drinks on one occasion?: Never Total Score: 1 CEDRIC-7 AMB Questionnaire CEDRIC-7 Date CEDRIC - 7 assessed: 12/13/24 Feeling nervous, anxious, or on edge: 0 = Not at all Not being able to stop or control worryin = Not at all Worrying too much about different things: 0 = Not at all Trouble relaxin = Not at all Being so restless that it is hard to sit still: 0 = Not at all Becoming easily annoyed or irritable: 0 = Not at all Feeling afraid as if something awful might happen: 0 = Not at all Total CEDRCI-7 score (0-4 normal; 5-9 mild; 10-14 moderate; 15-21 severe): 0 Source: Developed by Drs. Jim Hernandez, Nikia Bowman, Jesus Sainz and colleagues, with an educational terrie from [employer]. CEDRIC-7 Assessment Billing CEDRIC-7 Assessment Tool: CEDRIC-7 Assessment 85518 Physical exam (Primary Care) Vital Signs: Last Vital Signs Pulse 62 12/13/24 15:33 BP 132/80 12/13/24 15:33 Pulse Ox 98 12/13/24 15:33 Oxygen Delivery Method Room Air 12/13/24 15:33 BMI result Body Mass Index 31.2 Tobacco/Smoking Status: Tobacco use Status Tobacco use date assessed 12/13/24 12/13/24 15:34 Patient Tobacco Use Status Former Tobacco user 12/13/24 15:34 Tobacco use type Cigarette 12/13/24 15:34 e-Cigarette/Vaping Use Never Used 12/13/24 15:34 PHQ-9: PHQ-9 Score PHQ-9: Total score 0 12/13/24 15:55 Depression Screening Interpretation: Negative Thrive Assessment: Date of Thrive Assessment Date Thrive assessed 12/13/24 12/13/24 15:41 Currently or been in a relationship where the following occur: No concerns reported Const General: alert; No acute distress Eyes Conjunctivae: conjunctivae normal Resp Auscultation: clear to auscultation bilaterally Cardio Rate: regular rate Rhythm: regular rhythm GI Inspection: Yes normal to inspection Extrem General: Yes normal to inspection and No edema Coding Level of Care Code Est Pt Level 4 (67935) Complex EM visit Add On G2211 Diagnoses Obesity (BMI 30.0-34.9) E66.9 Abnormal stress test R94.39 Impaired fasting blood sugar R73.01 GERD (gastroesophageal reflux disease) K21.9 Hypercholesterolemia E78.00 Hypertension I10 TSH elevation R79.89 Bilateral knee pain M25.561; M25.562 Additional Codes CEDRIC-7 Assessment Billing - CEDRIC-7 Assessment Tool: CEDRIC-7 Assessment 31925 ([id number]) PHQ-9 - 99920 - PHQ-9 Billing: Yes ([id number]) Assessment & Plan Assessment & Plan (1) Obesity (BMI 30.0-34.9): Code(s): E66.9 - Obesity, unspecified Category: Medical Plan: Diet and exercise (2) Abnormal stress test: Code(s): R94.39 - Abnormal result of other cardiovascular function study Category: Medical Plan: Patient follows up with cardiology has had echocardiogram and awaiting CTA (3) Impaired fasting blood sugar: Code(s): R73.01 - Impaired fasting glucose Category: Medical Plan: Decrease the amount of carbohydrate intake, pasta, bread, rice and potatoes are all sugar and that is aside from all the sweet stuff, remember that fruits are good but they are Sweet also. (4) GERD (gastroesophageal reflux disease): Code(s): K21.9 - Gastro-esophageal reflux disease without esophagitis Category: Medical Plan: Avoid the foods that causes that usually spicy foods, tomato products, juices, coffee, soda and foods that your sensitive to. After eating do not lie down, allow 3-4 hours before in lie down. And keep the head of bed above 30 degrees to avoid the acid from going up. (5) Hypercholesterolemia: Code(s): E78.00 - Pure hypercholesterolemia, unspecified Category: Medical Plan: Avoid fried foods, chicken skin, eggs, butter margarine, pastries and meat. Be it pork or beef they have a lot of cholesterol LDL goal of less than 130 and triglyceride of less than 150 patient's LDL is very high (6) Hypertension: Code(s): I10 - Essential (primary) hypertension Category: Medical Plan: Continue with blood pressure medication. Decrease salt intake and exercise on lisinopril 5 mg once a day (7) TSH elevation: Code(s): R79.89 - Other specified abnormal findings of blood chemistry Category: Medical (8) Bilateral knee pain: Code(s): M25.561 - Pain in right knee; M25.562 - Pain in left knee Category: Medical Plan History of Present Illness The patient is a 54-year-old female presenting for a follow-up visit. She has a history of obesity, hypercholesterolemia, gastroesophageal reflux disease, hypertension, and impaired glucose tolerance. Her last visit was on September 07, 2024, and she has been managing these conditions with lifestyle modifications and medications. The patient underwent an echocardiogram which revealed a hyperdynamic left ventr icle with an ejection fraction of 70% and impaired relaxation filling pattern, though the valves were normal. She reports symptoms of fatigue and dyspnea, which may be related to the impaired relaxation of the left ventricle. She has also been experiencing joint pain, particularly in the knees, which has been attributed to patellar arthritis and bursitis. The pain is exacerbated by physical activity and has been persistent, affecting her daily activities. Her cholesterol levels have increased, with an LDL of 228 mg/dL, and she has been advised to follow a diet low in cholesterol and saturated fats. Despite dietary changes, she has not observed significant weight loss, which she attributes to perimenopausal symptoms. Preventative care measures include a negative Cologuard test in 2021 and a mammogram in September 2024. Health Maintenance - Colon cancer screening with Cologuard: Negative in 2021 - Mammogram: Conducted in September 2024 - Dietary modifications to reduce cholesterol intake Social History - Diet: Patient reports consuming salads, yogurt, and has reduced intake of bread and sweets. - Exercise: Patient has started walking to manage weight. Review of Systems - Cardiovascular: Reports fatigue and dyspnea. Denies chest pain. - Musculoskeletal: Reports knee pain exacerbated by activity. Denies other joint pain. Physical Exam Results - Echocardiogram: Hyperdynamic left ventricle with ejection fraction of 70%, impaired relaxation, normal valves. - Blood tests: Normal blood count, normal electrolytes, normal renal function, normal blood sugar, elevated LDL cholesterol at 228 mg/dL, mildly elevated TSH. - Liver function tests: Negative. - Cologuard: Negative in 2021. Plan The patient will continue to follow a diet low in cholesterol and saturated fats to manage hypercholesterolemia, with a goal of reducing LDL levels to below 130 mg/dL. She is advised to maintain regular physical activity, including walking, to aid in weight management and improve cardiovascular health. The patient will follow up with cardiology regarding the results of the recent CTA to assess the condition of her blood vessels and determine the need for further intervention. For hypertension, she will continue taking lisinopril 5 mg daily, with the option to increase to twice daily if needed, while monitoring for side effects such as cough. Joint pain management will include obtaining x-rays of the knees to evaluate the extent of patellar arthritis and bursitis, and further management will be based on these findings. The patient will return in three months for follow-up blood work to reassess cholesterol levels and thyroid function. Patient was informed and verbally consented to the use of an ambient scribe for clinic note documentation during this visit. Discussion Notes During the visit, I discussed with the patient the importance of managing her hypercholesterolemia through dietary changes and regular exercise, emphasizing the goal of reducing her LDL cholesterol levels. We reviewed her recent echocardiogram findings and the potential implications of her hyperdynamic left ventricle, including the risk of developing congestive heart failure if not managed appropriately. I advised her to continue with lisinopril for hypertension and to monitor for any side effects. We also discussed the need for x-rays to evaluate her knee pain and the plan to follow up on her CTA results with cardiology. Patient Instructions - Follow a diet low in cholesterol and saturated fats. - Engage in regular physical activity, such as walking. - Continue taking lisinopril 5 mg daily, and monitor for side effects like cough. - Schedule x-rays for knee evaluation. - Return in three months for follow-up blood work. Orders: Orders Lipid Panel 3 Months E78.00 - Pure hypercholesterolemia, unspecified Complete Blood Count Auto Diff 3 Months E78.00 - Pure hypercholesterolemia, unspecified Free T4 (Free Thyroxine) 3 Months E78.00 - Pure hypercholesterolemia, unspecified XR Knee Joey 1or 2V Today M25.561 - Pain in right knee, M25.562 - Pain in left knee Comprehensive Met. Panel 3 Months E78.00 - Pure hypercholesterolemia, unspecified Thyroid Stimulating Hormone 3 Months E78.00 - Pure hypercholesterolemia, unspecified
== END 2024-12-13 16:13 | disposition home or self-care (01) ==
LOC: HO.HMCH 15:28
PROVIDERS: PCP Internal Medicine; Visit Provider Internal Medicine
DX: R73.01 Impaired fasting glucose (principal); E66.9 Obesity, unspecified; Z68.31 Body mass index [BMI] 31.0-31.9, adult; R94.39 Abnormal result of other cardiovascular function study; K21.9 Gastro-esophageal reflux disease without esophagitis; E78.00 Pure hypercholesterolemia, unspecified; I10 Essential (primary) hypertension; R79.89 Other specified abnormal findings of blood chemistry; M25.561 Pain in right knee; M25.562 Pain in left knee

== ENCOUNTER → 2024-12-13 15:27 | Outpatient (BNVA) | payer BC, SELFPAY | PROVIDERS: PCP Internal Medicine; Visit Provider Internal Medicine | DX: I10 Essential (primary) hypertension (principal); R94.39 Abnormal result of other cardiovascular function study; E66.9 Obesity, unspecified; R73.01 Impaired fasting glucose; K21.9 Gastro-esophageal reflux disease without esophagitis; E78.00 Pure hypercholesterolemia, unspecified; R79.89 Other specified abnormal findings of blood chemistry; M25.561 Pain in right knee; M25.562 Pain in left knee; Z68.31 Body mass index [BMI] 31.0-31.9, adult | CPT/HCPCS: 96127 ==

== ENCOUNTER 2025-02-07 06:16 | Outpatient (REF) | payer BC, SELFPAY ==
[2025-02-07 06:41] LABS: MANUAL DIFF FLAG NO
[2025-02-07 07:47] LABS: Hematocrit 43.7 % (37.0-47.0); Hemoglobin 15.1 g/dl (12.0-16.0); Imm Gran Abs Auto 0.02 X10*3/uL (0.00-0.03); Imm Gran Pct Auto 0.3 % (0.0-0.4); Lymphocytes Absolute Auto 2.2 X10*3/uL (1.2-4.9); Mean Corpuscular HGB Conc 34.6 g/dl (31.0-35.0); Mean Corpuscular Hemoglobin 31.0 pg (27.0-33.0); Mean Corpuscular Volume 89.7 fL (80.0-98.0); NRBC Abs Auto 0.000 X10*3/uL (0.0-0.012); NRBC Pct Auto 0.0 /100WBC (0.0-0.2); Platelet Count 298 X10*3/uL (160-400); Red Blood Count 4.87 X10*6/uL (4.20-5.50); White Blood Count 6.0 X10*3/uL (4.8-10.8)
[2025-02-07 08:30] LABS: Alanine Aminotransferase 15 U/L (0-31); Albumin Level 4.9 g/dL (3.5-5.0); Alkaline Phosphatase 66 U/L (39-117); Anion Gap 16 (12-20); Aspartate Amino Transferase 18 U/L (5-31); Blood Urea Nitrogen 22 mg/dL (9-16); Calcium 10.0 mg/dL (8.4-10.2); Carbon Dioxide 27 mmol/L (22-29); Chloride 105 mmol/L (96-108); Cholesterol 277 mg/dL (<200); Estimated Glomerular Filt Rate > 60; HDL Cholesterol 44 mg/dL (>40); Potassium 5.1 mmol/L (3.3-5.1); Sodium 143 mmol/L (135-145); Total Protein 7.6 g/dL (6.5-8.0); Triglycerides 110 mg/dL (<150)
[2025-02-07 08:48] LABS: Free T4 (Free Thyroxine) 0.98 ng/dL (0.71-1.85); Thyroid Stimulating Hormone 2.42 uIU/mL (0.32-4.0)
== END 2025-02-07 06:17 | disposition home or self-care (01) ==
LOC: HO.LAB 06:16
PROVIDERS: PCP Internal Medicine; Visit Provider Internal Medicine
DX: E78.00 Pure hypercholesterolemia, unspecified (principal)
CPT/HCPCS: 36415; 80053; 80061; 84439; 84443; 85025

== ENCOUNTER 2025-02-13 07:54 | Outpatient (REF) | payer BC, SELFPAY ==
--- NOTE | ~2025-02-13 | XR_ITS ---
EXAMINATION: XR KNEE, BILATERAL CLINICAL INFORMATION: M25.561 - Pain in right knee COMPARISON: None available. TECHNIQUE: AP and lateral views both knees. FINDINGS: No acute cortical disruption or malalignment. Mild joint space narrowing involving medial compartment both knees. No suprapatellar bursa joint effusion. No lytic or blastic lesions. XR/XR Knee Joey 1or 2V IMPRESSION: Mild bicompartmental osteoarthritis. Electronically signed by: Atrur Cervantes MD 02/13/2025 10:06 AM EDT
== END 2025-02-13 07:55 | disposition home or self-care (01) ==
LOC: HO.XRAY 07:54
PROVIDERS: Absent Provider Internal Medicine; PCP Internal Medicine; Visit Provider Internal Medicine
DX: I25.10 Atherosclerotic heart disease of native coronary artery without angina pectoris (principal); I10 Essential (primary) hypertension; E78.00 Pure hypercholesterolemia, unspecified; E78.5 Hyperlipidemia, unspecified; M25.561 Pain in right knee; M25.562 Pain in left knee; Z79.899 Other long term (current) drug therapy; Z87.891 Personal history of nicotine dependence
CPT/HCPCS: 73560

== ENCOUNTER 2025-02-13 07:54 | Outpatient (AMB) | payer BC, SELFPAY ==
--- OUTSIDE RECORDS SUMMARY | 2025-02-13 07:58 | XMS_ITS | Encounter Summary ---
Author Organization [facility] Address [address] [place] [address] Phone Care Team Providers Care Train Operations Supervisor Name Role Phone Sharmin Culver MD Primary Care Provider [phone] Sharmin Culver MD Unavailable [phone] Sonya Thomas CNM Unavailable Brit Sainz GIS SOFTWARE ENGINEER Unavailable [phone] Jourdan Devine DO Unavailable John Steven DPM Unavailable Unavailable Samantha Eisenberg PA-C Unavailable Severiano Reid MD Unavailable [phone] Encounter Details Date Type Department Care Team (Late st Contact Info) Description 10/29/2020 Ancillary Orders [facility],Outside Imaging [address] [place] [address] System, Provider Not In, [facility] [address] [address] Social History Tobacco Use Types Packs/Day Years [...] 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 @ [employer] Not on file Not on file Not on file 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 us Provider Not In System [facility] OUTSIDE IMAGING W /OUT INTERPRETATION Final Result documented in this encounter Visit Diagnoses Not on filedocumented in this encounter Care Teams Train Operations Supervisor Relationship Specialty Start Date End Date Sharmin Culver MD 2 [facility] [address] [place] [phone] PCP - General 04/14/17 Sharmin Culver MD 2 [facility] [address] [place] [phone] Historical LMR Provider 04/18/17 2 Sonya Thomas CNM [address] [place] [address] Historical LMR Provider 04/18/17 2 Brit Sainz NP [address] [place] [address] [email or web address] Historical LMR Provider 04/18/17 07/06/21 Jourdan Devine DO [address] [place] [address] Orth[facility], [place] [address] Historical LMR Provider 04/18/17 07/06/21 John Steven DPM [address] [place] [phone] Historical LMR Provider 04/18/1707/06/21 Samantha Eisenberg PA-C [address] [place] [address] [facility], [place] [address] [email or web address] Historical LMR Provider 04/18/17 07/06/21 Severiano Reid MD [address] [place] [address], [address] [address] Historical LMR Provider 04/18/17 documented as of this encounter Additional Source Comments The information contained in this document represents components of the legal health record. It is not the complete legal health record.[facility]
[2025-02-13 08:21] VITALS: BP 138/70; PULSE 82; BMI 29.4
--- NOTE | 2025-02-13 08:21 | A.OFFVIS_ITS ---
Vital Signs 02/13/25 08:21 Height 5 ft 2 in Weight 160 lb 14.999 oz BMI 29.4 BP 138/70 Blood Pressure Location Lt brachial Position Sitting Pulse 82 Pulse Source Pulse Oximeter Intake Visit Reasons: follow up s/p CTA Allergies amlodipine Adverse Reaction (Intermediate, Verified 12/13/24 15:33) leg swelling simvastatin Adverse Reaction (Intermediate, Verified 12/13/24 15:33) myalgia rosuvastatin Adverse Reaction (Verified 12/20/24 12:59) leg swelling Medication List - Last Reconciled 02/13/25 by Zohaib Kang MD ascorbate calcium (vitamin C) 500 mg PO DAILY cholecalciferol (vitamin D3) 25 mcg PO DAILY lisinopril 5 mg PO DAILY HPI Comments Details: Kendra returns for follow-up. To recall, in the past she had markedly high blood pressure, as much as 208/108 mm Hg leading to some chest tightness and shortness of breath. She was then put on amlodipine that cause lower extremity swelling but then transition to lisinopril. That is seems improved. Otherwise, she has got dyslipidemia and statin intolerant. Recently tried Repatha but had side effects like headache. Otherwise, she has completed a stress test and coronary CTA. Overall, feels okay. No new concerns. [facility] Medical History (Updated 02/13/25 @ 09:18 by Zohaib Kang MD) Colon cancer screening Obesity (BMI 30.0-34.9) Chest pain Foot pain, left Finger pain, left Colonoscopy refused Periodic limb movement disorder Hypercholesterolemia Surgical History History of arthroscopy of left shoulder Family History Father Myocardial infarction Mother Cervical cancer Hypertension Hyperlipidemia CAD (coronary artery disease) Uterine cancer Maternal Grandmother Ovarian cancer Maternal Grandfather Myocardial infarction Brother No problems noted. Brother No problems noted. Sister No problems noted. Sister No problems noted. Son No problems noted. Social History Housing: House Alcohol intake: current Alcohol intake frequency: holidays/special occasions only Alcohol type: wine Comment: once a week 1-2 glasses of wine Patient Tobacco Use Status: Former Tobacco user Tobacco use type: Cigarette Years Smoked: 1999 Quit e-Cigarette/Vaping Use: Never Used Second Hand Smoke Exposure: Yes service: No Current occupational status: employed Cognitive needs: No Hearing needs: No Vision needs: Yes Review of Systems Const Denies weakness ENT Denies dizziness Card Denies chest pain, Denies chest pain with activity, Denies syncope, Denies rapid heart rate, Denies pedal edema, Denies edema, Denies leg edema, Denies lightheadedness, Denies palpitations, Denies dyspnea, Denies dyspnea on exertion and Denies orthopnea Resp Denies cough, Denies dyspnea and Denies dyspnea on exertion GI Denies hematochezia and Denies change in stool character Musc Denies abnormal gait, Denies muscle cramps, Denies muscle weakness, Denies numbness, Denies radiating pain into limb and Denies tingling Neuro Denies abnormal gait, Denies dizziness, Denies syncope, Denies numbness, Denies tingling and Denies weakness Endo Denies palpitations Physical Exam Vital Signs: Last Vital Signs Pulse 82 02/13/25 08:21 BP 138/70 02/13/25 08:21 BMI result Body Mass Index 29.4 Const General: comfortable and no acute distress Orientation/consciousness: patient oriented x3 HEENT Other: Unremarkable Head: Yes normal to inspection Neck Neck: Yes normal visual inspection Chest Chest palpation & inspection: normal inspection of the chest Resp Auscultation: clear to auscultation bilaterally Cardio Palpation: normal PMI Heart sounds: S1 normal heart sound present, S2 normal heart sound present, no gallops, no murmurs and no rubs GI Palpation (GI): Soft to palpation Back/Spine/Pelvis Other: unremarkable Skin General skin exam: no rashes or lesions noted Neuro General: patient oriented x3 Extrem General: Yes normal to inspection Psych Mental Status: mental status grossly normal Assessment & Plan Assessment & Plan (1) Atherosclerotic cardiovascular disease: Code(s): I25.10 - Atherosclerotic heart disease of [place] coronary artery without angina pectoris Category: Medical (2) Hypertension: Code(s): I10 - Essential (primary) hypertension Category: Medical (3) Hypercholesterolemia: Code(s): E78.00 - Pure hypercholesterolemia, unspecified Category: Medical Plan Cardiac testing reviewed. Echocardiogram-hyperdynamic LVEF, > 70%. No valvular dysfunction. Exercise stress echocardiogram- In the EKG portion, hypertensive blood pressure response and EKG suggestion of ST-depression in inferior/anterolateral leads and ST-elevation in AVR; echocardiographic component unremarkable. Blood pressure was as much as 221/106mmHg with exercise. Coronary CTA-minimal stenosis in the proximal to mid LAD from noncalcified plaque. Overall, minimal to mild coronary disease, hypertension, dyslipidemia. She mainly needs risk factor modification. With regard to blood pressure, she is on lisinopril. We can monitor the blood pressures and make changes accordingly. With regard to dyslipidemia, statin intolerant. She states she tried Repatha and got a headache. Advised her to re-attempt. Okay to started lower frequency and then adjust as she tolerates it. If still cannot tolerate, then probably try Praluent. Follow up in 6 months with another lipid panel. Total time spent including review of data, counseling, documentation, coordination of care-31 minutes. Orders: Orders Lipid Panel 5 Months E78.00 - Pure hypercholesterolemia, unspecified, E78.5 - Hyperlipidemia, unspecified Coding Level of Care Code Est Pt Level 4 (65604) Complex EM visit Add On G2211 Diagnoses Atherosclerotic cardiovascular disease I25.10 Hypertension I10 Hypercholesterolemia E78.00
== END 2025-02-13 08:49 | disposition home or self-care (01) ==
LOC: HO.HCS 07:55
PROVIDERS: PCP Internal Medicine; Visit Provider Internal Medicine
DX: I25.10 Atherosclerotic heart disease of native coronary artery without angina pectoris (principal); I10 Essential (primary) hypertension; E78.00 Pure hypercholesterolemia, unspecified
CPT/HCPCS: 99214

== ENCOUNTER → 2025-02-13 08:49 | Outpatient (BNV) | payer BC, SELFPAY | PROVIDERS: Absent Provider Internal Medicine; PCP Internal Medicine; Visit Provider Radiology Diagnostic Radiology | DX: M17.0 Bilateral primary osteoarthritis of knee (principal) | CPT/HCPCS: 73560 ==

== ENCOUNTER 2025-04-14 15:16 | Outpatient (AMB) | payer BC, SELFPAY ==
--- NOTE | 2025-04-14 15:58 | A.OFFPC_ITS ---
Vital Signs 04/14/25 16:01 Height 5 ft 2 in Weight 159 lb 8 oz BMI 29.2 BP 140/76 H Blood Pressure Location Lt brachial Position Sitting Pulse 63 Pulse Source Pulse Oximeter Temp 97.3 F Temp Source Temporal Artery Scan Pulse Oximetry (%) 97 Oxygen Delivery Method Room Air Intake Visit Reasons: Follow Up Admissions Specialist Required: No Hvac Manager: Not Required per policy Accompanied by: Self / Same As Patient Allergies amlodipine Adverse Reaction (Intermediate, Verified 04/14/25 16:00) leg swelling simvastatin Adverse Reaction (Intermediate, Verified 04/14/25 16:00) myalgia rosuvastatin Adverse Reaction (Verified 04/14/25 16:00) leg swelling Tobacco use date assessed: 04/14/25 Dental Screening Dental Screen Date: 12/13/24 [facility] Medical History (Updated 04/14/25 @ 16:23 by Sharmin Culver MD) Colon cancer screening Obesity (BMI 30.0-34.9) Chest pain Foot pain, left Finger pain, left Colonoscopy refused Periodic limb movement disorder Hypercholesterolemia Surgical History History of arthroscopy of left shoulder Family History Father Myocardial infarction Mother Cervical cancer Hypertension Hyperlipidemia CAD (coronary artery disease) Uterine cancer Maternal Grandmother Ovarian cancer Maternal Grandfather Myocardial infarction Brother No problems noted. Brother No problems noted. Sister No problems noted. Sister No problems noted. Son No problems noted. Social History Housing: House Alcohol intake: current Alcohol intake frequency: holidays/special occasions only Alcohol type: wine Comment: once a week 1-2 glasses of wine Patient Tobacco Use Status: Former Tobacco user Tobacco use type: Cigarette Years Smoked: 1999 Quit e-Cigarette/Vaping Use: Never Used Second Hand Smoke Exposure: Yes service: No Current occupational status: employed Cognitive needs: No Hearing needs: No Vision needs: Yes Questionnaire Thrive Questionnaire Date Thrive assessed: 09/07/24 I am a: Patient What is your living situation today?: I have a steady place to live Within the past 12 months, did the food you bought not last and you didn't have the money to get more?: Never true Within the past 12 months, did you worry whether your food would run out before you got money to buy more?: Never true Do you have trouble paying for medicines?: No Do you have trouble getting transportation to medical appointments?: No Do you have trouble paying your heating and electricity bill?: No Do you have trouble taking care of your child, family member or friend?: No Do you have trouble with day-to-day activities such as bathing, preparing meals, shopping, managing finances, etc.?: No Are you currently unemployed and looking for a job?: Yes Are you interested in more education?: No Please select the resources that you would like help with: None Currently or been in a relationship where the following occur: No concerns reported THRIVE Score: 0 CEDRIC-7 AMB Questionnaire CEDRIC-7 Date CEDRIC - 7 assessed: 12/13/24 Source: Developed by Drs. Jim Hernandez, Nikia Bowman, Jesus Sainz and colleagues, with an educational terrie from [id number]. Physical exam (Primary Care) Vital Signs: Last Vital Signs Temp 97.3 F 04/14/25 16:01 Pulse 63 04/14/25 16:01 BP 140/76 H 04/14/25 16:01 Pulse Ox 97 04/14/25 16:01 Oxygen Delivery Method Room Air 04/14/25 16:01 BMI result Body Mass Index 29.2 Tobacco/Smoking Status: Tobacco use Status Tobacco use date assessed 04/14/25 04/14/25 16:06 Patient Tobacco Use Status Former Tobacco user 04/14/25 16:06 Tobacco use type Cigarette 04/14/25 16:06 e-Cigarette/Vaping Use Never Used 04/14/25 16:06 Thrive Assessment: Date of Thrive Assessment Date Thrive assessed 09/07/24 04/14/25 16:06 Currently or been in a relationship where the following occur: No concerns reported Const General: alert; No acute distress Eyes Conjunctivae: conjunctivae normal Resp Auscultation: clear to auscultation bilaterally Cardio Rate: regular rate Rhythm: regular rhythm GI Inspection: Yes normal to inspection Extrem General: Yes normal to inspection and No edema Coding Level of Care Code Est Pt Level 4 (77717) Complex EM visit Add On G2211 Diagnoses Atherosclerotic cardiovascular disease I25.10 Hypercholesterolemia E78.00 Hypertension I10 Impaired fasting blood sugar R73.01 Overweight (BMI 25.0-29.9) E66.3 GERD (gastroesophageal reflux disease) K21.9 Assessment & Plan Assessment & Plan (1) Atherosclerotic cardiovascular disease: Comment: CTA 2024 mild atherosclerosis Code(s): I25.10 - Atherosclerotic heart disease of [place] coronary artery without angina pectoris Category: Medical Plan: Patient had a complete workup with coronary CTA with mild atherosclerosis (2) Hypercholesterolemia: Code(s): E78.00 - Pure hypercholesterolemia, unspecified Category: Medical Plan: Avoid fried foods, chicken skin, eggs, butter margarine, pastries and meat. Be it pork or beef they have a lot of cholesterol can not tolerate statins and was advised to start on Repatha (3) Hypertension: Code(s): I10 - Essential (primary) hypertension Category: Medical Plan: Continue with blood pressure medication. Decrease salt intake and exercise controlled with lisinopril (4) Impaired fasting blood sugar: Code(s): R73.01 - Impaired fasting glucose Category: Medical Plan: Decrease the amount of carbohydrate intake, pasta, bread, rice and potatoes are all sugar and that is aside from all the sweet stuff, remember that fruits are good but they are Sweet also. (5) Overweight (BMI 25.0-29.9): Code(s): E66.3 - Overweight Category: Medical Plan: Diet and exercise (6) GERD (gastroesophageal reflux disease): Code(s): K21.9 - Gastro-esophageal reflux disease without esophagitis Category: Medical Plan: Avoid the foods that causes that usually spicy foods, tomato products, juices, coffee, soda and foods that your sensitive to. After eating do not lie down, al low 3-4 hours before in lie down. And keep the head of bed above 30 degrees to avoid the acid from going up. Plan History of Present Illness The patient is a 54-year-old female presenting for management of hypercholesterolemia and cardiovascular risk assessment. The patient has a history of hypercholesterolemia, with an LDL level previously recorded at 211 mg/dL, which remains elevated despite dietary modifications and exercise. She has been unable to tolerate statins and was advised to start on Repatha, but experienced a severe headache after the first dose. 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 The patient also has a history of hypertension, which is currently well- controlled with lisinopril 5 mg daily. She monitors her blood pressure at home, which is typically within normal range, although it was elevated during today's visit due to stress. The patient has impaired glucose tolerance, managed with diet and exercise. She is keen on losing weight to further improve her glucose levels and cholesterol. The patient has a history of mild knee arthritis, confirmed by x-ray, which contributes to her exercise limitations. She is exploring weight loss as a means to alleviate symptoms. Preventative care measures include an up-to-date mammogram and a negative Cologuard test as of September 2024. She declined a colonoscopy but completed the Cologuard test. Health Maintenance - Mammogram up to date as of September 2024 - Cologuard test negative as of September 2024 - Declined colonoscopy Social History - Diet: Limited carbohydrates, no processed foods, increased vegetable intake - Exercise: Engages in regular physical activity to manage weight and glucose levels - Stress: Reports reduced stress levels at work recently Review of Systems - Cardiovascular: Reports elevated blood pressure during visit due to stress. Denies chest pain or palpitations. - Musculoskeletal: Reports mild knee pain due to arthritis. Physical Exam Results - Labs: LDL cholesterol 211 mg/dL, normal blood sugar, normal thyroid function - Imaging: Knee x-ray showing mild arthritis - Cardiovascular: Coronary CTA showing mild atherosclerosis, 25% stenosis in proximal and mid LAD, minimal myocardial bridging, small hiatal hernia Plan Patient was informed and verbally consented to the use of an ambient scribe for clinic note documentation during this visit. 1. Hypercholesterolemia The patient has hypercholesterolemia with an LDL level of 211 mg/dL. She cannot tolerate statins and was advised to start Repatha, but experienced a severe headache after the first dose. 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 2. Hypertension The patient's hypertension is well-controlled with lisinopril 5 mg daily. She monitors her blood pressure at home, which is typically within normal range, although it was elevated during today's visit due to stress. 3. Impaired Glucose Tolerance The patient manages impaired glucose tolerance with diet and exercise. She is focused on weight loss to improve glucose levels and cholesterol. 4. Mild Knee Arthritis The patient has mild knee arthritis confirmed by x-ray, contributing to exercise limitations. She is exploring weight loss as a means to alleviate symptoms. Discussion Notes During the visit, we discussed the patient's hypercholesterolemia and the challenges with statin intolerance. I advised trying Repatha again with less frequent dosing as recommended by the chain hoist operator. We also reviewed her h ypertension management, which is stable with lisinopril, and her efforts to manage impaired glucose tolerance through diet and exercise. The importance of weight loss for improving her overall health was emphasized. Patient Instructions - Continue monitoring blood pressure at home and maintain current lisinopril dosage. - Attempt Repatha again with less frequent dosing as advised by the cardiolo gist. - Maintain dietary modifications and regular exercise to manage glucose levels and support weight loss. - Schedule follow-up for blood work in June to reassess cholesterol and glucose levels. Orders: Orders Comprehensive Met. Panel Today R73.01 - Impaired fasting glucose Complete Blood Count Auto Diff Today R73.01 - Impaired fasting glucose Lipid Panel Today E78.00 - Pure hypercholesterolemia, unspecified, R73.01 - Impaired fasting glucose Thyroid Stimulating Hormone Today R73.01 - Impaired fasting glucose Free T4 (Free Thyroxine) Today R73.01 - Impaired fasting glucose Insulin Today R73.01 - Impaired fasting glucose Hemoglobin A1c Today R73.01 - Impaired fasting glucose Magnesium Today R73.01 - Impaired fasting glucose
[2025-04-14 16:01] VITALS: BP 140/76; PULSE 63; TEMP 36.3; O2SAT 97; BMI 29.2
== END 2025-04-14 16:39 | disposition home or self-care (01) ==
LOC: HO.HMCH 15:17
PROVIDERS: PCP Internal Medicine; Visit Provider Internal Medicine
DX: I25.10 Atherosclerotic heart disease of native coronary artery without angina pectoris (principal); E78.00 Pure hypercholesterolemia, unspecified; I10 Essential (primary) hypertension; R73.01 Impaired fasting glucose; E66.3 Overweight; K21.9 Gastro-esophageal reflux disease without esophagitis